=== PATIENT | female | born 1960 | race Caucasian/White ===

== ENCOUNTER 2016-10-31 17:10 | Emergency (ER) | payer OTHER ==
[~2016-10-31] VITALS: Ht 162.6 cm; Wt 80.1 kg
[~2016-10-31 17:10] MED LIST: ALPR0.5T3 PO; CHOL50006 PO; DOXE10 PO; ESTRATEST PO; HYDR-3129 PO; LEVO.1 PO; METH0.4I3; MS C PO; NORC10TA2 PO; PRED10 PO; PROT40TA PO; RITU500I IV; RIVA10 PO; SENN8.6T PO; SOMA350T PO; Z.0.COMMODE-3:1; Z.0.WALKERFRONT
[2016-10-31] MEDS ORDERED: HYDROmorphone HCL PF 1 MG/ML VIAL IV PUSH ONE (17:15)
[2016-10-31 17:16] VITALS: BP 138/67; PULSE 118; RESP 20; TEMP 98.3; O2SAT 97
--- NOTE | 2016-10-31 17:36 | PD ---
HPI Chief Complaint: Hip Injury Time Seen by Provider: 17:13 Travel History International Travel<30 days: No Contact w/Intl Traveler<30days: No Traveled to known affect area: No History of Present Illness HPI This is a 56-year-old female who has a history of spina bifida extending down to her hips with bilateral hip replacements and multiple recurrent dislocations who presents to the emergency department having just been sitting in his stool when she felt her right hip dislocate. She has severe pain in the right hip, constant, with no associated numbness or weakness. Patient follows with Dr. Polanco. She also has a history of dermatomyositis and is on multiple immunosuppressive medications for that including prednisone. PFSH Past Medical History Arthritis: Yes Asthma: Yes Autoimmune Disease: Yes Anxiety: Yes Heart Rhythm Problems: No Cancer: No Cardiovascular Problems: No High Cholesterol: No Chest Pain: No Congestive Heart Failure: No COPD: No Cerebrovascular Accident: No Diabetes: No Endocrine: Yes Genitourinary: No Hepatitis: No Hiatal Hernia: No Immune Disorder: Yes (DERMATOMYOCYTIS) Musculoskeletal: Yes (DERMATOMYOSITIS/WEAKNESS) Neurologic: Yes (SPINAL BIFIDA/LOW BACK PAIN) Psychiatric: Yes (ANXIETY/PANIC ATTACKS) Reproductive: No Respiratory: Yes (CPAP/SLEEP APEA) Migraines: No Seizures: No Sleep Apnea: No Thyroid Disease: Yes (HYPO) ?: Not Past Surgical History Abdominal Surgery: Yes (GASTRIC SLEEVE) AICD: No Cardiac Surgery: No Endocrine Surgery: No Gynecologic Surgery: Yes (HYSTERECTOMY NIRAV SALPINGO-OOPHORECTOMY) Hysterectomy: Yes Joint Replacement: Yes (NIRAV TOTAL HIP) Oral Surgery: Yes (NIRAV TMJ SX X 2) Pacemaker: No Thoracic Surgery: No Social History Tobacco Use: No Substance Use: No Allergies-Medications (Allergen,Severity, Reaction): Coded Allergies: No Known Allergies (Unverified , 10/31/16) Reported Meds & Prescriptions Reported Meds & Active Scripts Active Reported Synthroid (Levothyroxine Sodium) 88 Mcg Tab 88 Mcg PO DAILY Senna-S 8.6-50 mg (Sennosides-Docusate Sodium) 1 Tab Tab 1-3 Tab PO HS Rituxan Inj (Rituximab) 500 Mg/50 Ml Inj 1,000 Mg IV EVERY 8 WEEKS Prednisone 1 Mg Tab 8 Mg PO DAILY Take three tablets (3mg) with 5mg tab for a total dose of 8mg Prednisone 5 Mg Tab 8 Mg PO DAILY Take 1 tablet (5mg) with three 1mg tablets for a total dose of 8mg Protonix (Pantoprazole Sodium) 40 Mg Tab 40 Mg PO DAILY Ms Contin (Morphine Sulfate) 100 Mg Tab 100 Mg PO Q8H Otrexup Inj (Methotrexate Inj) 25 Mg/0.4 Ml Inj 25 Mg IM WEEKLY [place] (Hydrocodone-Acetaminophen) 10-325 Mg Tab 1 Tab PO Q4H PRN [Estratest 1.25MG] 1.25 Mg PO DAILY Doxepin Liq (Doxepin HCl) 10 Mg/Ml Conc 0.6 Ml PO HS Soma (Carisoprodol) 350 Mg Tab 350 Mg PO QID PRN Vitamin D3 (Cholecalciferol) 5,000 Unit Tab 5,000 Units PO DAILY Alprazolam 0.5 Mg Tab 0.5 Mg PO Q6H PRN Review of Systems Except as stated in HPI: all other systems reviewed are Neg Physical Exam Narrative GENERAL:Well appearing, no acute distress SKIN: Malar rash. HEAD: Atraumatic. Normocephalic. EYES: Pupils equal and round. No injection or drainage. ENT: Moist mucous membranes NECK: Trachea midline. CARDIOVASCULAR: Regular rate and rhythm. No murmur appreciated. 2+ bilateral DP pulses. RESPIRATORY: Clear to auscultation. Breath sounds equal bilaterally. GASTROINTESTINAL: Abdomen soft, non-tender, nondistended. MUSCULOSKELETAL: Shortening of the right lower extremity. Severe pain of the right hip with small movements. NEUROLOGICAL: Awake and alert. No obvious cranial nerve deficits. PSYCHIATRIC: Appropriate mood and affect; insight and judgment normal. Data Data Last Documented VS Vital Signs Date Time Temp Pulse Resp B/P Pulse Ox O2 Delivery O2 Flow Rate FiO2 10/31/16 17:31 Room Air 10/31/16 17:16 98.3 118 20 138/67 97 Orders Hip, Uni(Ap&Lat) W Ap Pelvis (10/31/16 ) Hydromorphone Pf Inj (Dilaudid Pf Inj) (10/31/16 17:15) Propofol 1000 Mg/100 Ml Inj (Diprivan 10 (10/31/16 18:15) Hip, Ap Only Wo Ap Pelvis (10/31/16 ) Propofol 1000 Mg/100 Ml Inj (Diprivan 10 (10/31/16 19:15) MDM Medical Decision Making Medical Screen Exam Complete: Yes Emergency Medical Condition: Yes Interpretation(s) Afebrile, tachycardic, normotensive Last 24 hours Impressions Hip and Pelvis X-Ray 10/31/16 0000 Signed Impressions: Service Date/Time: Monday, October 31, 2016 17:25 - CONCLUSION: 1. Dislocated right hip prosthesis. Femoral head is migrated superiorly. Martin Fitzpatrick MD Differential Diagnosis Hip dislocation, fractured hardware, hip sprain Narrative Course This is a 56-year-old female who presents to the emergency department having sustained a dislocation of her right hip prosthesis. She was placed on a monitor. X-rays were obtained and a conscious sedation was performed in her hip was reduced. Patient tolerated the procedure well. She is placed in a knee immobilizer and will be discharged home to follow up with Dr. Polanco. Procedures Procedure Narrative After the risks and benefits were discussed the following procedure was performed: MODERATE SEDATION: The patient was placed on a mold filler and pulse oximetry. An ambu bag and suction was immediately available at bedside. The patient was monitored by the nurse. Oxygen saturation, heart rate and blood pressure were monitored. Procedural sedation was acheived using 120mg of propofol . The patient was observed until awake and alert. Procedural Sedation time in attendance was 20 minutes. The right hip was reduced using traction countertraction. Right lower extremity was neurovascularly intact following procedure. Patient tolerated the procedure well. Diagnosis Primary Impression: Hip dislocation, right Qualified Code: S73.004A - Hip dislocation, right, initial encounter Patient Instructions: General Instructions Additional Instructions: If you develop weakness, numbness, severe pain or recurrent dislocation of your right hip return to the emergency department. Follow-up with Dr. Polanco as soon as possible. Med/Other Pt SpecificInfo: No Change to Meds Disposition: 01 DISCHARGE HOME Condition: Stable Kayla Loving MD Oct 31, 2016 17:36
[2016-10-31] MEDS ORDERED: PROPOFOL 1000 MG/100 ML BTL IV ONE ×2 (18:15→19:15)
[2016-10-31 18:30] VITALS: O2SAT 98
[2016-10-31] MEDS ORDERED: PROT40TA PO (18:35)
[2016-10-31] MEDS ORDERED: ESTRATEST PO (18:35)
[2016-10-31] MEDS ORDERED: PRED5TAB PO (18:35)
[2016-10-31] MEDS ORDERED: CHOL50008 PO (18:35)
[2016-10-31] MEDS ORDERED: ALPR0.5T3 PO (18:35)
[2016-10-31] MEDS ORDERED: SOMA350T PO (18:35)
[2016-10-31] MEDS ORDERED: SYNT88TA PO (18:35)
[2016-10-31] MEDS ORDERED: MS C100T PO (18:35)
[2016-10-31] MEDS ORDERED: DOXE10CO2 PO (18:35)
[2016-10-31] MEDS ORDERED: HYDR-3366 PO (18:35)
[2016-10-31] MEDS ORDERED: SENN8.6T19 PO (18:35)
[2016-10-31] MEDS ORDERED: METH0.4I3 IM (18:35)
[2016-10-31] MEDS ORDERED: RITU500I IV (18:35)
[2016-10-31] MEDS ORDERED: PRED1 PO (18:35)
--- NOTE | 2016-10-31 18:51 | RADRPT ---
EXAM DATE/TIME: 10/31/2016 17:25 [facility] COMPARISON: No previous studies available for comparison. INDICATIONS : Right Hip pain and possible dislocation while sitting down. MEDICAL HISTORY : Spina Bifida. Dermatomyositis. SURGICAL HISTORY : Bilateral Hip Replacement. ENCOUNTER: Initial ACUITY: 1 day PAIN SCORE: 10/10 LOCATION: Right Hip. FINDINGS: Examination of the right hip was performed with AP Pelvis. There is dislocation of the right femoral head prosthesis from the prosthetic acetabulum. There is also previous left hip replacement. No acute fractures seen. CONCLUSION: 1. Dislocated right hip prosthesis. Femoral head is migrated superiorly. Martin Fitzpatrick MD on October 31, 2016 at 18:48 Board Certified Radiologist. This report was verified electronically.
[2016-10-31 19:27] VITALS: BP 138/64; PULSE 78; RESP 15; O2SAT 100
[2016-10-31] MEDS ORDERED: ACETAMINOPHEN/HYDROcodone 325 MG/10 MG TAB PO ONE (19:45)
--- NOTE | 2016-10-31 20:46 | RADRPT ---
EXAM DATE/TIME: 10/31/2016 19:11 [facility] COMPARISON: No previous studies available for comparison. INDICATIONS : Right Hip Post Reduction. MEDICAL HISTORY : Spina Bifida. Dermatomyositis. SURGICAL HISTORY : Bilateral Hip Replacement. ENCOUNTER: Subsequent ACUITY: 1 day PAIN SCORE: 7/10 LOCATION: Right Hip. FINDINGS: Postoperative changes of right total hip replacement noted. No fracture. Reduction of previous disloc ation. CONCLUSION: Postoperative right hip replacement. Previous dislocation has been reduced. Martin Fitzpatrick MD on October 31, 2016 at 20:43 Board Certified Radiologist. This report was verified electronically.
== END 2016-10-31 19:50 | disposition home or self-care (01) ==
LOC: NEPE 17:10
DX: T84.020A Dislocation of internal right hip prosthesis, initial encounter (principal); M24.451 Recurrent dislocation, right hip; Y79.2 Prosthetic and other implants, materials and accessory orthopedic devices associated with adverse incidents
CPT/HCPCS: 27265; 73501; 73502; 96374; 99152; 99283; J1170; L1830

== ENCOUNTER 2016-11-20 14:09 | Inpatient (IN) | payer OTHER ==
[~2016-11-20] VITALS: Ht 162.6 cm; Wt 91.2 kg
[~2016-11-20 14:09] MED LIST changes: -CHOL50006 PO; +CHOL50008 PO; -DOXE10 PO; +DOXE10CO2 PO; -ESTRATEST PO; -HYDR-3129 PO; +HYDR-3366 PO; -LEVO.1 PO; -METH0.4I3; +METH0.4I3 IM; -MS C PO; +MS C100T PO; -NORC10TA2 PO; +PRED1 PO; -PRED10 PO; +PRED5TAB PO; -RIVA10 PO; -SENN8.6T PO; +SENN8.6T19 PO; +SYNT88TA PO; -Z.0.COMMODE-3:1; -Z.0.WALKERFRONT
[2016-11-22] MEDS ORDERED: COVATAB PO (14:58)
[2016-11-23] MEDS ORDERED: DULO1CAP3 PO (09:10)
--- NOTE | 2016-12-08 05:54 | MH ---
cc: SAWYER ARTEAGA M.D. DATE OF ADMISSION: 12/08/2016 ADMISSION DIAGNOSIS Malfunctioning right total hip replacement arthroplasty. HISTORY This is a 56-year-old female who came to previous right hip [place] resurfacing arthroplasty by another surgeon about 8 to 10 years ago. 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 The patient came to revision hip surgery by the undersigned approximately a year ago. The patient at the time of surgery was found to have such significant metallosis that she had loss of muscle attachment including part of the abductors and also her hip flexors. The patient has had troubles with dislocating of her right hip despite well-positioned components. She presents now for revision surgery. PAST MEDICAL HISTORY, SOCIAL HISTORY, FAMILY HISTORY, REVIEW OF SYSTEMS See attached notes. PHYSICAL EXAMINATION GENERAL: A 56-year-old female in moderate distress with the right hip. HEENT: Normocephalic, atraumatic. Pupils equal, round, reactive to light and accommodation. Extraocular motions intact. NECK: Supple. CHEST: Clear. HEART: Regular rate and rhythm. ABDOMEN: Soft, nontender with normoactive bowel sounds. MUSCULOSKELETAL EXAMINATION: Right minimal hip pain with range of motion. Well-healed incision. Neurologic and vascular examination within normal limits. IMPRESSION 1. Malfunctioning right total hip replacement arthroplasty. 2. Dislocating right total hip replacement arthroplasty. PLAN Revision right hip replacement surgery including a constrained liner and femoral head, possible trochanteric osteotomy and femoral revision. CONSENT There are risks with surgery including infection, bleeding, loss of motion, continued pain, need for further surgery, neurologic and vascular injury. The patient understands these issues and wishes to press on with surgery as outlined above. MD MESSI Garcia/PERRY /9:38 PM /4:45 AM
[2016-12-08] MEDS ORDERED: METOPROLOL TARTRATE 25 MG TAB PO PRN (09:45)
[2016-12-08] MEDS ORDERED: VANCOMYCIN 1000 MG/NS 250 ML (for <70 kg) IV SCH ×2 (09:45)
[2016-12-08] MEDS ORDERED: ceFAZolin 2 GM PREMIX 50 ML IV SCH (09:45)
[2016-12-08] MEDS ORDERED: INSULIN HUMAN REGULAR 1,000 UNITS/10 ML VIAL SQ PRN (09:45)
[2016-12-08] MEDS ORDERED: MORP1TAB26 PO (09:59)
[2016-12-08] MEDS ORDERED: FOLI400T PO (09:59)
[2016-12-08 10:00] VITALS: BP 163/93; PULSE 94; RESP 18; TEMP 98.1; O2SAT 98
[2016-12-08] MEDS ORDERED: SODIUM CHLORID 0.9% 500 ML IV SCH (10:00)
[2016-12-08] MEDS ORDERED: LACTATED RINGER'S 1000 ML IV SCH (10:00)
[2016-12-08] MEDS ORDERED: fentaNYL CITRATE 250 MCG/5 ML AMP ONE (10:50)
[2016-12-08] MEDS ORDERED: FAMOTIDINE 20 MG/2 ML VIAL ONE (11:14)
[2016-12-08] MEDS ORDERED: ACETAMINOPHEN 1000 MG/100 ML VIAL IV ONE (11:14)
[2016-12-08] MEDS ORDERED: MIDAZOLAM HCL 2 MG/2 ML VIAL ONE (11:14)
[2016-12-08] MEDS ORDERED: DEXAMETHASONE SOD PHOS 4 MG/ML VIAL ONE (11:14)
[2016-12-08] MEDS ORDERED: GENTAMICIN SULFATE 80 MG/2 ML VIAL ONE ×2 (11:15→11:28)
[2016-12-08] MEDS ORDERED: HEPARIN SODIUM - SQ 10,000 UNITS/ML VIAL ONE (11:16)
[2016-12-08] MEDS ORDERED: HYDROmorphone HCL PF 2 MG/ML VIAL ONE (11:22)
[2016-12-08] MEDS ORDERED: KETAMINE HCL 500 MG/5 ML VIAL ONE (11:22)
[2016-12-08] MEDS ORDERED: DICLOFENAC SODIUM 37.5 MG/ML VIAL IV PUSH ONE (11:23)
[2016-12-08] MEDS ORDERED: GELFOAM SIZE 100 ONE (11:36)
[2016-12-08] MEDS ORDERED: THROMBIN (TOPICAL) 5,000 UNIT VIAL ONE (11:37)
[2016-12-08] MEDS ORDERED: ONDANSETRON HCL 4 MG/2 ML VIAL IV PUSH ONE (12:00)
[2016-12-08] MEDS ORDERED: NEOSTIGMINE 3 MG/3 ML SYR IV ONE (12:00)
[2016-12-08] MEDS ORDERED: PROPOFOL 200 MG/20 ML AMP IV ONE (12:00)
[2016-12-08] MEDS ORDERED: LACTATED RINGER'S 1000 ML INJ 1,000 ML IV ONE (12:00)
[2016-12-08] MEDS: SODIUM CHLORIDE 0.9% IV SCH (12:11)
[2016-12-08] MEDS: TRANEXAMIC ACID IV SCH (12:11)
[2016-12-08] MEDS: EXPAREL PERI-ARTICULAR INJECTION (TOTAL VOL. 60 ML) P-ARTICULR SCH ×2 (13:00)
[2016-12-08] MEDS ORDERED: Post-op Orders (for Pharmacy) MISC XX ONE (14:15)
[2016-12-08] MEDS ORDERED: MORPHINE SULFATE 8 MG/ML INJ IM PRN (14:15)
[2016-12-08] MEDS ORDERED: MISCELLANEOUS NURSING INFORMATION XX PRN (14:15)
[2016-12-08] MEDS ORDERED: ALUMINUM/MAGNESIUM/SIMETH 30 ML CUP PO PRN (14:15)
[2016-12-08] MEDS ORDERED: MISCELLANEOUS PHARMACY INFORMATION XX ONE (14:15)
[2016-12-08] MEDS ORDERED: ONDANSETRON HCL 4 MG/2 ML VIAL IVP PRN (14:15)
[2016-12-08] MEDS ORDERED: TEMAZEPAM 15 MG CAP PO PRN (14:15)
[2016-12-08] MEDS ORDERED: CARISOPRODOL 350 MG TAB PO PRN (14:15)
[2016-12-08] MEDS ORDERED: ALPRAZolam 0.5 MG TAB PO PRN (14:15)
[2016-12-08] MEDS ORDERED: oxyCODONE/ACETAMINOPHEN 5 MG/325 MG TAB PO PRN (14:15)
[2016-12-08] MEDS ORDERED: SODIUM CHLORIDE 0.9% FLUSH 5 ML FLUSH IVF PRN (14:15)
--- NOTE | 2016-12-08 14:21 | PD.OP ---
cc: Ronni Hoffmann MD Operative Report Date of Surgery: Dec 08, 2016 Preoperative Diagnosis: Malfunctioning right total hip replacement arthroplasty. 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 Surgeon: Ronni Hoffmann Egg Buyer(s): JOHAN Julien Operation and Findings: EBL: 150 cc INDICATION: Patient is a 56-year-old female who had a previous [place] hip resurfacing of the right hip. She had significant myelosis with damage to surrounding soft tissues. The patient had revision of her right hip replacement with a ceramic on plastic liner. She has suffered from recent chronic dislocations. She presents now for surgical treatment with conversion to a constrained liner. NOTE: Caridad Julien PA-C was present for the entire surgical procedure as my sampler first. In my medical opinion her skill and care was necessary for the proper management of this patient. COMPONENTS: COMPANY: [employer] CUP: [place], 54 mm, sector STEM: Size 2, high offset, [place], uncemented HEAD: 32, +5 12/14 taper LINER: 54 x 32, +4 offset, constrained PROCEDURE: This patient was brought to the operating room and anesthetized in the supine position and positioned on the routine table in the clean air suite. The patient was then rolled to a right side up lateral position and held with a Biomet hip positioner. The hip and leg was scrubbed with alcohol followed by Hibiclens followed by chloro prep and draped sterilely. A timeout was done and antibiotics were given within a routine time window. A 6 inch incision was made starting along the posterior one third of the greater trochanter, excising the previous incision. The iliotibial band was opened in line with the incision. The Charnley retractors were positioned. The posterior capsule and external rotators were taken down together in a sleeve. The sciatic nerve was palpated to be free of any obstruction or compression and posterior to the hip joint without any evidence of traction from the retractor. There was significant loss of normal musculature. The psoas muscle had been previously noted to be completely avulsed. A portion of the abductor mechanism as well. The posterior capsule and external rotators were completely unattached. There was a 200 cc bloody effusion. Soft tissue dissection allowed good visualization. The hip was dislocated posteriorly. The head was removed from the trunnion. The femoral stem was inspected. The stem was in approximately 20-25 of anteversion and was stable. The stem was placed anterior to the cup and acetabulum. Retractors allowed good visualization. Using a curved osteotome, the plastic liner was removed without incident. This was inspected carefully and the edges very carefully cleaned up allowing reimplantation of a new liner. A constrained 54 x 32 mm liner was impacted. This was quite stable and inspected multiple times. We used a 32, +5 ceramic head. This was impacted according to shipbuilding draftsperson's recommendation. The hip was relocated. A ring was positioned and tamped around this region using this as a constrained liner. We could flex the hip to 90 and internal rotates 70-75 before any impingement. With external rotation and full extension there was no impingement. The posterior capsule was freed carefully from the surrounding tissue and multiple drill holes placed along the posterior aspect of the greater trochanter. Using multiple #2 Tycron sutures, this was repaired including up and along the posterior margin of the gluteus medius. The wound was irrigated multiple times with antibiotic irrigation. There was no bleeding at the end of the case. The iliotibial band with interrupted #1 Vicryl sutures. Subcutaneous tissue was approximated with 2-0 Vicryl suture and skin with running intradermal 3-0 Vicryl followed by Steri-Strips and benzoin. A sterile dressing was applied.. The sponge count needle counts and instrument counts were all correct. The patient was awakened and taken to the recovery room in satisfactory condition FINDINGS: There was evidence of a satisfactory positioning of the previous components. The cup appeared to be approximately 45 of abduction. This was flexed forward by approximately 25-30. Stem position was approximately 25 of anteversion. The final solution. Be very satisfactory. 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 Ronni Hoffmann MD Dec 08, 2016 14:21
[2016-12-08] MEDS ORDERED: OXYC1TAB63 PO (14:23)
[2016-12-08] MEDS ORDERED: XARE10TA PO (14:23)
[2016-12-08] MEDS ORDERED: BACITRACIN TOP OINT 15 GM TUBE ONE (14:44)
[2016-12-08] MEDS ORDERED: *HYDROmorphone PF 1 MG VIAL PERIprocedural Use ONLY ONE ×2 (15:23→15:47)
[2016-12-08] MEDS ORDERED: HYDROmorphone HCL PF 1 MG/ML VIAL IV ONE ×2 (15:28→15:47)
[2016-12-08] MEDS ORDERED: DO NOT ADM ANY ANTICOAGULANT DRUGS XX PRN (15:30)
--- NOTE | 2016-12-08 15:53 | RADRPT ---
EXAM DATE/TIME: 12/08/2016 14:25 [facility] COMPARISON: HIP RIGHT AP ONLY WO AP PELVIS, November 22, 2016, 15:08. INDICATIONS : Right hip replacement. MEDICAL HISTORY : Asthma. SURGICAL HISTORY : total hip replacement. ENCOUNTER: Initial ACUITY: 1 day PAIN SCORE: 9/10 LOCATION: Right hip. FINDINGS: 2 views of the hip reveal a total hip prosthesis in good position. No fracture or dislocation is obse rved. A small amount of air is seen within the joint. Soft tissue swelling is noted. CONCLUSION: Total hip prosthesis in good position. Kobe Blancas Jr., MD on December 08, 2016 at 15:50 Board Certified Radiologist. This report was verified electronically.
[2016-12-08] MEDS ORDERED: MORPHINE SULFATE 15 MG CONTROLLED RELEASE TAB PO SCH (16:00)
[2016-12-08] MEDS: LACTATED RINGER'S 1000 ML INJ 1,000 ML IV SCH (16:00)
[2016-12-08] MEDS ORDERED: LORazepam 2 MG/ML VIAL ONE (16:30)
[2016-12-08] MEDS ORDERED: predniSONE 10 MG TAB PO ONE (17:00)
[2016-12-08] MEDS: MORPHINE SULFATE 60 MG CONTROLLED RELEASE TAB PO SCH (17:15)
[2016-12-08] MEDS: MORPHINE SULFATE 15 MG CONTROLLED RELEASE TAB PO SCH (17:20)
[2016-12-08] MEDS ORDERED: LORazepam 2 MG/ML VIAL IV PUSH ONE (18:30)
[2016-12-08] MEDS ORDERED: NALOXONE HCL 0.4 MG/ML AMP IV PRN (19:00)
[2016-12-08] MEDS: MORPHINE SULFATE 30 MG/30 ML PCA IV SCH (19:15)
[2016-12-08] MEDS ORDERED: MORPHINE SULFATE 30 MG/30 ML PCA ONE (19:15)
[2016-12-08 20:09] VITALS: BP 123/65; PULSE 95; RESP 17; TEMP 97.3; O2SAT 96
[2016-12-08] MEDS: SODIUM CHLORIDE 0.9% FLUSH 5 ML FLUSH IVF SCH (21:00)
[2016-12-08] MEDS ORDERED: SENNOSIDES 8.6 MG TAB PO SCH (21:00)
[2016-12-08] MEDS: MAGNESIUM HYDROXIDE SUSP 30 ML CUP PO SCH ×2 (21:00→22:11)
[2016-12-08] MEDS ORDERED: DOXEPIN PO SCH (21:00)
[2016-12-08] MEDS: ESTROGEN/METHYLTESTOSTERONE 1.25 MG/2.5 MG TAB PO SCH (21:00)
[2016-12-08 21:45] VITALS: O2SAT 96
[2016-12-08] MEDS: PCA - TOTAL MG MORPHINE DELIVERED PER SHIFT SCH (22:00)
[2016-12-08] MEDS: DULoxetine HCl DR 60 MG CAP PO SCH (22:11)
[2016-12-08] MEDS: DOCUSATE SODIUM 50 MG/SENNA 8.6 MG TAB PO SCH (22:11)
[2016-12-08] MEDS: oxyCODONE/ACETAMINOPHEN 5 MG/325 MG TAB PO PRN (22:12)
[2016-12-08 23:30] VITALS: BP 142/70; PULSE 93; RESP 17; TEMP 96.9; O2SAT 96
[2016-12-09] VITALS (7 sets, daily range): BP systolic 112–148; BP diastolic 51–67; PULSE 68–105; RESP 16; TEMP 95.9–97.2; O2SAT 93–98
[2016-12-09] MEDS: MORPHINE SULFATE 15 MG CONTROLLED RELEASE TAB PO SCH ×3 (00:43→17:26)
[2016-12-09] MEDS: MORPHINE SULFATE 60 MG CONTROLLED RELEASE TAB PO SCH ×3 (00:44→17:25)
[2016-12-09] MEDS: MORPHINE SULFATE 30 MG/30 ML PCA IV SCH ×2 (02:03→08:41)
[2016-12-09] MEDS: LEVOTHYROXINE SODIUM 88 MCG TAB PO SCH (05:41)
[2016-12-09] MEDS: oxyCODONE/ACETAMINOPHEN 5 MG/325 MG TAB PO PRN ×3 (05:41→21:35)
[2016-12-09] MEDS: LACTATED RINGER'S 1000 ML INJ 1,000 ML IV SCH ×2 (05:42→16:00)
[2016-12-09] MEDS: PCA - TOTAL MG MORPHINE DELIVERED PER SHIFT SCH ×2 (06:00→14:00)
[2016-12-09] MEDS: POVIDONE IODINE 7.5% SCRUB 118 ML BOTTLE TOP SCH (07:26)
[2016-12-09] MEDS: SODIUM CHLORIDE 0.9% IV SCH (07:27)
[2016-12-09] MEDS: TRANEXAMIC ACID IV SCH (07:27)
[2016-12-09] MEDS: EXPAREL PERI-ARTICULAR INJECTION (TOTAL VOL. 60 ML) P-ARTICULR SCH ×2 (07:27)
[2016-12-09] MEDS ORDERED: predniSONE 20 MG TAB PO ONE (08:00)
[2016-12-09] MEDS: MAGNESIUM HYDROXIDE SUSP 30 ML CUP PO SCH ×2 (08:36→21:30)
[2016-12-09] MEDS: PANTOPRAZOLE SOD 40 MG DELAYED RELEASE TAB PO SCH (08:36)
[2016-12-09] MEDS: SODIUM CHLORIDE 0.9% FLUSH 5 ML FLUSH IVF SCH ×2 (08:38→21:31)
[2016-12-09 09:26] LABS: HEMATOCRIT 25.7 % (35.0-46.0); REVIEW FLAG FINAL
--- NOTE | 2016-12-09 13:25 | HHI.FF ---
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 WBAT RLE. Posterior hip precautions. Nursing RN Days per Week: 3 x Week(s): 1 Dressing Changes: Do not change dressing Additional Instructions Vitals assessment. Dressing assessment - do not change unless saturated. I have seen patient Verónica Brandt on 12/09/16. My clinical findings support the need for the requested home health care services because: Limited ability to care for self High risk of falls I certify that my clinical findings support that this patient is homebound because: Post-op weakness Unsteady gait/balance Irma Robert Dec 09, 2016 13:25
--- NOTE | 2016-12-09 13:33 | PD.ORT.PN ---
Subjective Subjective Remarks Moderate right hip pain but states she is 'surprised by how well controlled it is'. No new radiating leg pain. Some concerns over yeast infection in abdominal crease. No other concerns or complaints. No CP or SOB. Objective Vitals Vital Signs Date Time Temp Pulse Resp B/P Pulse Ox O2 Delivery O2 Flow Rate FiO2 12/09/16 12:47 97.1 98 16 121/67 93 12/09/16 09:37 18 12/09/16 09:37 18 12/09/16 08:41 18 12/09/16 08:00 95.9 84 16 136/65 98 12/09/16 07:27 98 21 12/09/16 06:00 18 12/09/16 04:35 96.7 68 16 148/60 98 12/09/16 02:03 18 12/08/16 23:30 96.9 93 17 142/70 96 12/08/16 22:00 18 12/08/16 21:45 96 21 12/08/16 20:09 97.3 95 17 123/65 96 12/08/16 19:30 98.4 93 14 120/72 97 Nasal Cannula 3 12/08/16 19:15 14 12/08/16 19:00 118 14 109/77 96 Nasal Cannula 3 12/08/16 18:00 109 14 142/66 96 Nasal Cannula 3 12/08/16 17:00 101 14 123/73 95 Nasal Cannula 3 12/08/16 16:30 91 12 127/69 95 Nasal Cannula 3 12/08/16 16:00 97.9 71 12 119/72 99 Nasal Cannula 3 12/08/16 15:45 72 14 129/66 96 Nasal Cannula 3 12/08/16 15:30 68 14 110/66 96 Nasal Cannula 3 12/08/16 15:15 62 12 131/76 94 Nasal Cannula 3 12/08/16 15:00 75 15 149/74 97 Nasal Cannula 3 12/08/16 14:50 98.1 62 14 136/69 98 Nasal Cannula 3 I/O 12/08/16 12/08/16 12/08/16 12/09/16 12/09/16 12/09/16 07:00 15:00 23:00 07:00 15:00 23:00 Intake Total 1000 ml 1200 ml 899 ml Output Total 1350 ml 900 ml 750 ml Balance -350 ml 300 ml 149 ml Intake Oral 0 ml 700 ml 480 ml IV Total 419 ml Other 1000 ml 500 ml Output Urine Total 1200 ml 900 ml 750 ml Estimated Blood Loss 150 ml 0 ml # Bowel Movements 0 0 Result Diagram: 12/09/16 0858 Objective Remarks Sitting up in bed, NAD VSS RLE Dressing intact, mild SS drainage, mild swelling thigh and calf supple, neg homans +motor at, +sens, +nvi Assessment & Plan Ortho Post Op Day #: 1 Problem List: Assessment and Plan pod#1 s/p Rev R OMEGA w constrained liner 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 Posterior hip precautions. Dry dressing changes daily beginning tomorrow. Xarelto 10mg qd. Nystatin cream for abd crease. D/C planning, [facility] wednesday. F2F written. Pt already has all DME. Irma Robert Dec 09, 2016 13:33
[2016-12-09] MEDS: RIVAROXABAN 10 MG TAB PO SCH (13:49)
[2016-12-09] MEDS: NYSTATIN/TRIAMCINOLONE OINT 15 GM TUBE TOPICAL SCH (21:30)
[2016-12-09] MEDS: DULoxetine HCl DR 60 MG CAP PO SCH (21:30)
[2016-12-09] MEDS: ESTROGEN/METHYLTESTOSTERONE 1.25 MG/2.5 MG TAB PO SCH (21:30)
[2016-12-09] MEDS: DOCUSATE SODIUM 50 MG/SENNA 8.6 MG TAB PO SCH (21:30)
[2016-12-10 00:10] VITALS: BP 145/69; PULSE 71; RESP 16; TEMP 96.3; O2SAT 100
[2016-12-10] MEDS: LACTATED RINGER'S 1000 ML INJ 1,000 ML IV SCH ×2 (00:57→07:21)
[2016-12-10] MEDS: MORPHINE SULFATE 15 MG CONTROLLED RELEASE TAB PO SCH ×3 (01:24→17:59)
[2016-12-10] MEDS: MORPHINE SULFATE 60 MG CONTROLLED RELEASE TAB PO SCH ×3 (01:24→17:59)
[2016-12-10] MEDS: oxyCODONE/ACETAMINOPHEN 5 MG/325 MG TAB PO PRN ×3 (06:00→18:12)
[2016-12-10] MEDS: LEVOTHYROXINE SODIUM 88 MCG TAB PO SCH (06:01)
[2016-12-10] MEDS: POVIDONE IODINE 7.5% SCRUB 118 ML BOTTLE TOP SCH (07:20)
[2016-12-10 08:00] VITALS: BP 108/63; PULSE 113; RESP 19; TEMP 98.2; O2SAT 96
[2016-12-10] MEDS ORDERED: predniSONE 10 MG TAB PO SCH (08:00)
[2016-12-10] MEDS: SODIUM CHLORIDE 0.9% FLUSH 5 ML FLUSH IVF SCH (09:00)
[2016-12-10] MEDS: NYSTATIN/TRIAMCINOLONE OINT 15 GM TUBE TOPICAL SCH (09:00)
[2016-12-10] MEDS: MAGNESIUM HYDROXIDE SUSP 30 ML CUP PO SCH (09:00)
[2016-12-10] MEDS: PANTOPRAZOLE SOD 40 MG DELAYED RELEASE TAB PO SCH (09:07)
--- NOTE | 2016-12-10 09:39 | PD.ORT.PN ---
Subjective Subjective Remarks She continues to have moderate right hip pain but states she is almost 'back to her baseline pain'. She gets occasional cramps and spasms but they are 'few and far between'. No new radiating leg pain. Feels better when she can walk the hallway several times a day. Urinating well. No BM yet but declined last does of milk of mag. Was able to start the nystatin cream yesterday. No CP or SOB. Questions about d/c today. Objective Vitals Vital Signs Date Time Temp Pulse Resp B/P Pulse Ox O2 Delivery O2 Flow Rate FiO2 12/10/16 00:10 96.3 71 16 145/69 100 12/09/16 22:55 96.1 105 16 112/51 98 12/09/16 17:47 93 21 12/09/16 17:00 97.2 100 16 115/51 94 12/09/16 14:49 18 12/09/16 14:00 18 12/09/16 12:47 97.1 98 16 121/67 93 12/09/16 09:37 18 12/09/16 09:37 18 I/O 12/09/16 12/09/16 12/09/16 12/10/16 12/10/16 12/10/16 07:00 15:00 23:00 07:00 15:00 23:00 Intake Total 899 ml 480 ml 480 ml 480 ml Output Total 750 ml Balance 149 ml 480 ml 480 ml 480 ml Intake Oral 480 ml 240 ml 480 ml 480 ml IV Total 419 ml 240 ml Output Urine Total 750 ml # Voids 3 3 3 # Bowel Movements 0 0 0 0 Result Diagram: 12/09/16 0858 Objective Remarks Standing at bedside, RN in room, NAD VSS RLE Dressing intact, mild-mod SS drainage, mild swelling thigh and calf supple, neg homans +motor at, +sens, +nvi Assessment & Plan Ortho Post Op Day #: 2 Problem List: Assessment and Plan pod#2 s/p Rev R OMEGA w constrained liner Pain moderately controlled w PO meds. Ok to d/c home w [facility] later today after PT. PT - WBAT RLE. Posterior hip precautions. Dry dressing change today with a 'no change' dressing. Continue that dressing for 2 weeks. Xarelto 10mg qd. Nystatin cream for abd crease. F/U in 2 weeks outpatient. F2F written. Pt already has all DME. Irma Robert Dec 10, 2016 09:39
--- NOTE | 2016-12-10 09:40 | HHI.DCPOC ---
Discharge Care Plan Diagnosis: (1) Right hip pain (2) Hip dislocation, right (3) Sveta-prosthetic osteolysis Your Health Problems Are: Incision/Drains Goals to Promote Your Health * To prevent worsening of your condition and complications * To maintain your health at the optimal level Directions to Meet Your Goals Take your medications as prescribed Follow your dietary instruction Follow activity as directed Keep your appointments as scheduled Take your immunizations and boosters as scheduled If your symptoms worsen call your PCP, if no PCP go to Urgent Care Center or Emergency Room Smoking is Dangerous to Your Health. Avoid second hand smoke Call the 24-hour hour crisis hotline for domestic abuse at Irma Robert Dec 10, 2016 09:40
--- NOTE | 2016-12-10 09:44 | HHI.DS ---
Discharge Summary Admission Date Dec 08, 2016 at 09:11 Discharge Date: Dec 10, 2016 Admitting Diagnosis see below Diagnosis: (1) Right hip pain Diagnosis: Principal (2) Hip dislocation, right Diagnosis: Principal (3) Failed total joint replacement Diagnosis: Principal (4) Sveta-prosthetic osteolysis Diagnosis: Principal Procedures Revisional right total hip arthroplasty with constrained liner, posterior approach Brief History This is a 56 year old female patient with a history of previous [place] hip resurfacing. This was eventually converted to a right total hip arthroplasty. She struggled significantly with right hip dislocations. She had to change her activities and change job responsibilities. Due to her consistent pain and dislocations, surgical revision with a constrained liner was eventually recommended and she elected to move forward. CBC/BMP: 12/09/16 0858 Significant Findings Laboratory Tests Test 12/09/16 08:58 Hemoglobin 9.0 GM/DL (11.6-15.3) Hematocrit 25.7 % (35.0-46.0) PE at Discharge Standing at bedside, RN in room, NAD VSS RLE Dressing intact, mild-mod SS drainage, mild swelling thigh and calf supple, neg homans +motor at, +sens, +nvi Hospital Course Surgical treatment was performed on the day of admission without complication. She recovered well in PACU and was transferred to the orthopaedic floor. Pain was controlled with IV and oral medications. DVT prophylaxis was initiated pod# 1. She was compliant with physical therapy and all posterior OMEGA precautions. After 2 days she was found to be stable and discharged home with home health care with instruction to continue her therapy and to pursue a high fiber diet for 3-5 days. Pt Condition on Discharge: Stable Discharge Disposition: Disch w/ Home Health Serv Discharge Instructions Diet Instructions: As Tolerated, No Restrictions, High Fiber Diet Activities You Can Perform: Weight Bearing as Nithya Activities to Avoid: Strenuous Activity Additional Activity Instruc.: Posterior OMEGA precautions New Medications: Oxycodone-Acetaminophen (Oxycodone-Acetaminophen) 5-325 mg Tab 1 TAB PO Q4H PRN PAIN LESS THAN 5 ON SCALE #50 TAB Rivaroxaban (Xarelto) 10 Mg Tab 10 MG PO Q24H Prevent Blood Clot #25 TAB Continued Medications: Alprazolam (Alprazolam) 0.5 Mg Tab 0.5 MG PO Q6H PRN ANXIETY Ref 0 TAB Carisoprodol (Soma) 350 Mg Tab 350 MG PO QID PRN PAIN Ref 0 TAB Cholecalciferol (Vitamin D3) 5,000 Unit Tab 5000 UNITS PO HS Nutritional Supplement #1 Ref 0 BOTTLE Doxepin Liq (Doxepin Liq) 10 Mg/Ml Conc 0.6 ML PO HS Ref [address] (Duloxetine DR) 60 Mg Capdr 60 MG PO HS #30 Ref 0 CAP Estrogens, Esterified-Methyltestosterone (Covaryx) 1.25-2.5 Mg Tab 1 TAB PO HS Folic Acid (Folic Acid) 400 Mcg Tab 400 MCG PO HS Nutritional Supplement Ref 0 TAB NS Hydrocodone-Acetaminophen (Elmo) 10-325 Mg Tab 1 TAB PO Q4H PRN BREAKTHROUGH PAIN Ref 0 TAB Levothyroxine (Synthroid) 88 Mcg Tab 88 MCG PO DAILY Thyroid #30 Ref 0 TAB Methotrexate Inj (Otrexup Inj) 25 Mg/0.4 Ml Inj 25 MG IM WEEKLY Morphine ER (Morphine ER) 60 Mg Tab 75 MG PO Q8H Pain Management Ref 0 TAB Pantoprazole (Protonix) 40 Mg Tab 40 MG PO DAILY Reflux #30 Ref 0 TAB Prednisone (Prednisone) 5 Mg Tab 8 MG PO DAILY Take 1 tablet (5mg) with three 1mg tablets for a total dose of 8mg Ref 0 TAB Prednisone (Prednisone) 1 Mg Tab 8 MG PO DAILY Take three tablets (3mg) with 5mg tab for a total dose of 8mg Ref 0 TAB Rituximab Inj (Rituxan Inj) 500 Mg/50 Ml Inj 1000 MG IV EVERY 8 WEEKS Sennosides-Docusate Sodium (Senna-S 8.6-50 mg) 1 Tab Tab 1-3 TAB PO HS Irma Robert Dec 10, 2016 09:44
[2016-12-10 10:44] VITALS: BP 141/73; PULSE 103; RESP 19; TEMP 96.9; O2SAT 98
[2016-12-10] MEDS: RIVAROXABAN 10 MG TAB PO SCH (12:11)
[2016-12-10 16:00] VITALS: BP 131/72; PULSE 92; RESP 19; TEMP 98.6; O2SAT 96
== END 2016-12-10 18:39 | disposition home health service (06) | DRG 470 ==
LOC: HSDI 12-08 09:11 → N06A 12-08 20:09
PROVIDERS: ADMIT Orthopaedic Surgery Orthopaedic Surgery of the Spine; ATTEND Orthopaedic Surgery Orthopaedic Surgery of the Spine
PROC: 0SR903A Replacement of Right Hip Joint with Ceramic Synthetic Substitute, Uncemented, Open Approach (ICD-10-PCS; principal; 2016-12-08 11:55)
DX: T84.050A Periprosthetic osteolysis of internal prosthetic right hip joint, initial encounter (principal); T84.020A Dislocation of internal right hip prosthesis, initial encounter; Y83.8 Other surgical procedures as the cause of abnormal reaction of the patient, or of later complication, without mention of misadventure at the time of the procedure; Y92.9 Unspecified place or not applicable
CPT/HCPCS: 73502; 85014; 85018; 86850; 86900; 86901; 86920; 94150; C1776; C9290; J0131; J0690; J1100; J1130; J1170; J1580; J1644; J2060; J2250; J2270; J2405; J2710; J3010; J3370; J7050; J7120; J7512

== ENCOUNTER 2016-11-22 12:02 | Emergency (ER) | payer OTHER ==
[~2016-11-22] VITALS: Ht 162.6 cm; Wt 85.0 kg
[2016-11-22] VITALS (11 sets, daily range): BP systolic 142–171; BP diastolic 69–81; PULSE 64–92; RESP 14–18; TEMP 98.2; O2SAT 94–100
[~2016-11-22 12:02] MED LIST changes: +ESTRATEST PO
[2016-11-22] MEDS ORDERED: MORPHINE SULFATE 8 MG/ML INJ IV PUSH ONE (12:15)
[2016-11-22] MEDS ORDERED: ONDANSETRON HCL 4 MG/2 ML VIAL IVP ONE (12:15)
[2016-11-22] MEDS ORDERED: SODIUM CHLORIDE 0.9% FLUSH 5 ML FLUSH IVF PRN (12:15)
--- NOTE | 2016-11-22 12:47 | RADRPT ---
EXAM DATE/TIME: 11/22/2016 12:45 [facility] COMPARISON: No previous studies available for comparison. INDICATIONS : Right hip recurrent right hip dislocation MEDICAL HISTORY : Spina Bifida. Dermatomyositis. SURGICAL HISTORY : Bilateral hip replacements ENCOUNTER: Initial ACUITY: 1 day PAIN SCORE: 7/10 LOCATION: Right Hip FINDINGS: Patient has a right total hip arthroplasty that is dislocated posterior/superior. No fracture seen. N o evidence of hardware failure or loosening. CONCLUSION: Posterior/superior dislocation of the right hip arthroplasty. Bryce Dupont MD on November 22, 2016 at 12:45 Board Certified Radiologist. This report was verified electronically.
[2016-11-22 12:53] LABS: AUTOMATED NEUTROPHIL # 8.4 TH/MM3 (1.8-7.7); BASOPHIL % 0.1 % (0.0-2.0); EOSINOPHIL % 0.1 % (0.0-4.0); HEMATOCRIT 38.9 % (35.0-46.0); HEMO FLAGS DIFF FINAL; LYMPH % 5.5 % (9.0-44.0); LYMPHOCYTE # 0.5 TH/MM3 (1.0-4.8); MEAN CORPUSCULAR HGB CONC 33.6 % (32.0-36.0); MONO % 4.8 % (0.0-8.0); NEUT % 89.5 % (16.0-70.0); PLATELET COUNT 340 TH/MM3 (150-450); RED BLOOD COUNT 3.97 MIL/MM3 (4.00-5.30); RED CELL DISTRIBUTION WIDTH 14.4 % (11.6-17.2); WHITE BLOOD COUNT 9.3 TH/MM3 (4.0-11.0)
[2016-11-22 13:04] LABS: BICARBONATE 33.8 MEQ/L (21.0-32.0); POTASSIUM 3.7 MEQ/L (3.5-5.1)
[2016-11-22] MEDS ORDERED: PROPOFOL 500 MG/50 ML BTL IV ONE ×2 (13:15→14:30)
--- NOTE | 2016-11-22 14:26 | RADRPT ---
EXAM DATE/TIME: 11/22/2016 14:01 [facility] COMPARISON: HIP RIGHT (AP&LAT 2/3VWS) W AP PELVIS, November 22, 2016, 12:45. INDICATIONS : Post reduction. MEDICAL HISTORY : Spina bifida SURGICAL HISTORY : Bilateral hip replacements ENCOUNTER: Subsequent ACUITY: 1 day PAIN SCORE: 10/10 LOCATION: Right hip FINDINGS: Right total hip arthroplasty remains superiorly dislocated. No fracture seen. CONCLUSION: The right hip arthroplasty is still superiorly dislocated. Bryce Dupont MD on November 22, 2016 at 14:24 Board Certified Radiologist. This report was verified electronically.
[2016-11-22] MEDS ORDERED: COVATAB PO (14:58)
--- NOTE | 2016-11-22 15:16 | PD ---
HPI Chief Complaint: Hip Injury Time Seen by Provider: 12:06 Travel History International Travel<30 days: No Contact w/Intl Traveler<30days: No Traveled to known affect area: No History of Present Illness HPI Patient 56-year-old female with a history of right hip replacement presents emergency department for evaluation of hip dislocation. Patient states she was just getting out of her car when she felt to slip out of place. Patient is scheduled to have a revision of her right hip replacement in the middle of next month with Dr. Polanco. Patient lives in the [facility] that [facility] can never get her hip in place that she requested to come to [place]. Patient was here on October 31 for similar and had to have sedation and reduction. Patient denies any other pain at this time. PFSH Past Medical History Arthritis: Yes Asthma: Yes Autoimmune Disease: Yes Anxiety: Yes Heart Rhythm Problems: No Cancer: No Cardiovascular Problems: No High Cholesterol: No Chemotherapy: Yes (RITUXAN) Chest Pain: No Congestive Heart Failure: No COPD: No Cerebrovascular Accident: No Diabetes: No Endocrine: Yes Genitourinary: No Hepatitis: No Hiatal Hernia: No Immune Disorder: Yes (DERMATOMYOCYTIS) Implanted Vascular Access Dvce: Yes (Port) Musculoskeletal: Yes (DERMATOMYOSITIS/WEAKNESS) Neurologic: Yes (SPINAL BIFIDA/LOW BACK PAIN) Psychiatric: Yes (ANXIETY/PANIC ATTACKS) Reproductive: No Respiratory: Yes (CPAP/SLEEP APEA) Migraines: No Seizures: No Sleep Apnea: No Thyroid Disease: Yes (HYPO) Tetanus Vaccination: Unknown Influenza Vaccination: No Past Surgical History Abdominal Surgery: Yes (GASTRIC SLEEVE) AICD: No Cardiac Surgery: No Endocrine Surgery: No Gynecologic Surgery: Yes (HYSTERECTOMY NIRAV SALPINGO-OOPHORECTOMY) Hysterectomy: Yes Joint Replacement: Yes (NIRAV TOTAL HIP) Neurologic Surgery: No Oral Surgery: Yes (NIRAV TMJ SX X 2) Pacemaker: No Thoracic Surgery: No Other Surgery: Yes Social History Alcohol Use: No Tobacco Use: No Substance Use: No Allergies-Medications (Allergen,Severity, Reaction): Coded Allergies: No Known Allergies (Unverified , 11/22/16) Reported Meds & Prescriptions Reported Meds & Active Scripts Active Reported Covaryx (Estrogens, Esterified-Methyltestosterone) 1.25-2.5 Mg Tab 1 Tab PO DAILY Synthroid (Levothyroxine Sodium) 88 Mcg Tab 88 Mcg PO DAILY Senna-S 8.6-50 mg (Sennosides-Docusate Sodium) 1 Tab Tab 1-3 Tab PO HS Rituxan Inj (Rituximab) 500 Mg/50 Ml Inj 1,000 Mg IV EVERY 8 WEEKS Prednisone 1 Mg Tab 8 Mg PO DAILY Take three tablets (3mg) with 5mg tab for a total dose of 8mg Prednisone 5 Mg Tab 8 Mg PO DAILY Take 1 tablet (5mg) with three 1mg tablets for a total dose of 8mg Protonix (Pantoprazole Sodium) 40 Mg Tab 40 Mg PO DAILY Ms Contin (Morphine Sulfate) 100 Mg Tab 100 Mg PO Q8H Otrexup Inj (Methotrexate Inj) 25 Mg/0.4 Ml Inj 25 Mg IM WEEKLY [place] (Hydrocodone-Acetaminophen) 10-325 Mg Tab 1 Tab PO Q4H PRN Doxepin Liq (Doxepin HCl) 10 Mg/Ml Conc 0.6 Ml PO HS Soma (Carisoprodol) 350 Mg Tab 350 Mg PO QID PRN Vitamin D3 (Cholecalciferol) 5,000 Unit Tab 5,000 Units PO DAILY Alprazolam 0.5 Mg Tab 0.5 Mg PO Q6H PRN Review of Systems Except as stated in HPI: all other systems reviewed are Neg Physical Exam Narrative GENERAL: Well-developed well-nourished in minimal pain. SKIN: Warm and dry. HEAD: Atraumatic. Normocephalic. EYES: Pupils equal and round. No scleral icterus. No injection or drainage. ENT: No nasal bleeding or discharge. Mucous membranes pink and moist. Oropharynx clear, well potty 1. NECK: Trachea midline. No JVD. CARDIOVASCULAR: Regular rate and rhythm. No murmur appreciated. RESPIRATORY: No accessory muscle use. Clear to auscultation. Breath sounds equal bilaterally. GASTROINTESTINAL: Abdomen soft, non-tender, nondistended. Hepatic and splenic margins not palpable. MUSCULOSKELETAL: No obvious deformities. No clubbing. No cyanosis. No edema. The right leg is shortened and externally rotated consistent with a posterior dislocation. Pulses motor and sensory intact distally in all 4 extremities. Department soft, right knee is normal. The right hip is somewhat tender to palpation. NEUROLOGICAL: Awake and alert. No obvious cranial nerve deficits. Motor grossly within normal limits. Normal speech. PSYCHIATRIC: Appropriate mood and affect; insight and judgment normal. Data Data Last Documented VS Vital Signs Date Time Temp Pulse Resp B/P Pulse Ox O2 Delivery O2 Flow Rate FiO2 11/22/16 16:00 64 18 142/69 100 Room Air 11/22/16 15:30 2 11/22/16 12:06 98.2 Orders Basic Metabolic Panel (Bmp) (11/22/16 12:06) Complete Blood Count With Diff (11/22/16 12:06) Iv Access Insert/Monitor (11/22/16 12:06) Ecg Monitoring (11/22/16 12:06) Oximetry (11/22/16 12:06) Ondansetron Inj (Zofran Inj) (11/22/16 12:15) Sodium Chloride 0.9% Flush (Ns Flush) (11/22/16 12:15) Morphine Inj (Morphine Inj) (11/22/16 12:15) Hip, Uni(Ap&Lat) W Ap Pelvis (11/22/16 ) Propofol 500 Mg/50 Ml Inj (Diprivan 500 (11/22/16 13:15) Immobilizer Knee 20 Inch (11/22/16 ) Propofol 500 Mg/50 Ml Inj (Diprivan 500 (11/22/16 14:30) Hip, Ap Only Wo Ap Pelvis (11/22/16 ) Hip, Ap Only Wo Ap Pelvis (11/22/16 ) Labs Laboratory Tests Test 11/22/16 12:10 White Blood Count 9.3 TH/MM3 Red Blood Count 3.97 MIL/MM3 Hemoglobin 13.1 GM/DL Hematocrit 38.9 % Mean Corpuscular Volume 98.0 FL Mean Corpuscular Hemoglobin 33.0 PG Mean Corpuscular Hemoglobin 33.6 % Concent Red Cell Distribution Width 14.4 % Platelet Count 340 TH/MM3 Mean Platelet Volume 7.6 FL Neutrophils (%) (Auto) 89.5 % Lymphocytes (%) (Auto) 5.5 % Monocytes (%) (Auto) 4.8 % Eosinophils (%) (Auto) 0.1 % Basophils (%) (Auto) 0.1 % Neutrophils # (Auto) 8.4 TH/MM3 Lymphocytes # (Auto) 0.5 TH/MM3 Monocytes # (Auto) 0.4 TH/MM3 Eosinophils # (Auto) 0.0 TH/MM3 Basophils # (Auto) 0.0 TH/MM3 CBC Comment DIFF FINAL Differential Comment Sodium Level 143 MEQ/L Potassium Level 3.7 MEQ/L Chloride Level 101 MEQ/L Carbon Dioxide Level 33.8 MEQ/L Anion Gap 8 MEQ/L Blood Urea Nitrogen 12 MG/DL Creatinine 0.73 MG/DL Estimat Glomerular Filtration 82 ML/MIN Rate Random Glucose 96 MG/DL Calcium Level 9.3 MG/DL MDM Medical Decision Making Medical Screen Exam Complete: Yes Emergency Medical Condition: Yes Differential Diagnosis Repeat right hip dislocation, right hip fracture, pelvic fracture, hip laxity, opioid tolerance. Narrative Course Patient was roomed in the emergency department, x-rays confirm that she had a posterior hip dislocation on the right. Patient was initially sedated by Dr. Arce and attempted a reduction by myself , with director of orthopedics in the room. Patient had what appeared to be adequate reduction of her right hip under sedation. She did have a brief period of apnea during Dr. Arce sedation. This was quickly recognized the patient had a few moments of [id number] no desaturation and had full return of consciousness. After sedation was ended and patient was breathing on her own having suffered no untoward complication x-ray was obtained which shows the patient's hip was not an anatomical location. The patient had to be re-sedated and reduced this time she was reduced by Dash cox PA and myself sedating. With her previous apneic episode patient was given Lasix sedating medication and still had a brief episode of apnea this time lasting for less than 30 seconds. He was quickly recognized that she had [id number] for less than 30 seconds. She had no desaturation again and again had full regain of consciousness. X-rays obtained at this time and shows that the hip was now in anatomical position. She was placed in a knee immobilizer. After sedation completely worn off she demonstrated ability to a bili in the emergency department. Discussed with her need follow-up with Dr. Polanco for preop that she is scheduled tomorrow. During both procedures the patient was monitored closely with full monitoring including blood pressure and tidal capnography. Respiratory therapy and director of orthopedics and a nurse was in the room at all times. Patient did request pain medicine for her chronic hip pain to go home with. She has ran out of her MS Contin earlier and I'm disinclined to refill more pain medication at this time. Discussed that she is at significant pain she can return to the emergency department at this time she would like to go home. Last 24 hours Impressions Hip and Pelvis X-Ray 11/22/16 Signed Impressions: Service Date/Time: Tuesday, November 22, 2016 12:45 - CONCLUSION: Posterior/superior dislocation of the right hip arthroplasty. Bryce Dupont MD Hip X-Ray 11/22/16 Signed Impressions: Service Date/Time: Tuesday, November 22, 2016 15:08 - CONCLUSION: Right hip prosthesis has been relocated to its anatomic position. David Clark MD Hip X-Ray 11/22/16 Signed Impressions: Service Date/Time: Tuesday, November 22, 2016 14:01 - CONCLUSION: The right hip arthroplasty is still superiorly dislocated. Bryce Dupont MD Procedures Procedure Narrative Orthopedic reduction: After the risks benefits competitions and alternatives of orthopedic reduction and sedation including apnea hypotension need for intubation fracture need for surgery were discussed with the patient she agreed and signed formal consent for both procedures. Patient was sedated by Dr. Arce. Patient was attempted be reduced with traction countertraction with the patient flexed at 90 and internally rotated. Sudden length and was felt in her hip and the patient's length. To be equal. Patient was placed in a knee immobilizer. She did have an apneic event during the sedation and had bag- valve-mask for short period of time. On awakening patient states that her hip still felt in pain. A post reduction x-ray was obtained and showed that the reduction was unsuccessful. Conscious sedation: Patient had to be re-sedated after the first reduction was unsuccessful: She was given a total of 110 mg of propofol by me with 80 is an induction dose an additional 30 mg was given during procedure. She was successfully reduced by Da DREW using the same technique as described above. Patient again had a brief apneic episode and had to be [id number] by myself with respiratory as a cyst. She had no desaturation and returned consciousness within 30 seconds. She completed the sedation having suffered no untoward adverse reaction. Diagnosis Primary Impression: Hip dislocation, right Qualified Code: S73.004A - Hip dislocation, right, initial encounter Disposition: DISCHARGE HOME Condition: Stable Larry Ball MD Nov 22, 2016 15:16
--- NOTE | 2016-11-22 15:18 | RADRPT ---
EXAM DATE/TIME: 11/22/2016 15:08 [facility] COMPARISON: HIP RIGHT AP ONLY WO AP PELVIS, November 22, 2016, 14:01. INDICATIONS : Post reduction right hip MEDICAL HISTORY : recurrent right hip dislocation SURGICAL HISTORY : bilateral hip arthroplasty ENCOUNTER: Subsequent ACUITY: 1 day PAIN SCORE: 0/10 LOCATION: Right Hip FINDINGS: View of the right hip was obtained. No hardware loosening. Femoral neck is intact. No fracture is se en. The soft tissues are unremarkable. CONCLUSION: Right hip prosthesis has been relocated to its anatomic position. David Clark MD on November 22, 2016 at 15:15 Board Certified Radiologist. This report was verified electronically.
[2016-11-23] MEDS ORDERED: DULO1CAP3 PO (09:10)
== END 2016-11-22 18:02 | disposition home or self-care (01) ==
LOC: NEPA 12:02
DX: T84.020A Dislocation of internal right hip prosthesis, initial encounter (principal); M19.90 Unspecified osteoarthritis, unspecified site; Z96.641 Presence of right artificial hip joint
CPT/HCPCS: 27265; 73501; 73502; 80048; 85025; 96374; 96375; 99152; 99284; J2270; J2405; L1830

== ENCOUNTER → 2016-11-23 | Outpatient (CLI) | payer OTHER ==
[~2016-11-23] MED LIST changes: +CEFA2SOL IV; +COVATAB PO; +DULO1CAP3 PO; +EPIN1INJ21 IV PUSH; +EPIN1INJ21 SQ; -ESTRATEST PO; +FAMO20TA2 PO; +FOLI400T PO; +MAGN64 PO; +MORP1TAB26 PO; +OXYC1TAB63 PO; +RIFA300C2 PO; +SOLU250I IV PUSH; +VITA400C28 PO; +XARE10TA PO; +ZOFR4TAB PO
[2016-11-23 09:47] LABS: AUTOMATED NEUTROPHIL # 5.4 TH/MM3 (1.8-7.7); BASOPHIL % 0.4 % (0.0-2.0); EOSINOPHIL # 0.1 TH/MM3 (0-0.4); EOSINOPHIL % 0.8 % (0.0-4.0); HEMO FLAGS DIFF FINAL; LYMPH % 7.1 % (9.0-44.0); LYMPHOCYTE # 0.4 TH/MM3 (1.0-4.8); MEAN CELL VOLUME 98.2 FL (80.0-100.0); MEAN CORPUSCULAR HEMOGLOBIN 32.8 PG (27.0-34.0); MEAN CORPUSCULAR HGB CONC 33.4 % (32.0-36.0); MONO % 5.5 % (0.0-8.0); NEUT % 86.2 % (16.0-70.0); PLATELET COUNT 311 TH/MM3 (150-450); RED BLOOD COUNT 3.67 MIL/MM3 (4.00-5.30); RED CELL DISTRIBUTION WIDTH 14.4 % (11.6-17.2); WHITE BLOOD COUNT 6.3 TH/MM3 (4.0-11.0)
[2016-11-23 09:54] LABS: APTT (PATIENT) 26.8 SEC (24.3-30.1); INTERNATIONAL NORMALIZED RATIO 0.9 RATIO; PROTHROMBIN TIME - PATIENT 10.1 SEC (9.8-11.6)
[2016-11-23 10:13] LABS: BICARBONATE 33.3 MEQ/L (21.0-32.0); POTASSIUM 3.9 MEQ/L (3.5-5.1)
[2016-11-23 10:40] LABS: BLOOD, URINE NEG (NEG); COMMENT (UR) CATH-CULT NOT IND; CULTURE IF INDICATED CATH CULTURE NOT IND; GLUCOSE,URINE NEG (NEG); KETONE, URINE NEG (NEG); MUCUS URINE FEW /lpf (OCC); NITRITE,URINE NEG (NEG); SQUAMOUS EPITHELIAL CELL URINE 1 /hpf (0-5); URINE COLOR YELLOW (YELLW/STRAW)
--- NOTE | 2016-11-23 13:37 | EKG ---
Date Performed: 11/23/2016 Time Performed: 08:59:55 PTAGE: 56 years EKG: Sinus rhythm NORMAL ECG Compared to prior tracing no significant change PREVIOUS TRACING 12/06/2015 10.21.34 DOCTOR: Arvin Martinez Interpretating Date/Time 11/23/2016 13:36:44
== END ==
LOC: CPRE 08:18
PROVIDERS: ATTEND Orthopaedic Surgery Orthopaedic Surgery of the Spine
DX: Z01.810 Encounter for preprocedural cardiovascular examination (principal); Z01.812 Encounter for preprocedural laboratory examination; Z01.818 Encounter for other preprocedural examination; Z79.01 Long term (current) use of anticoagulants; Z96.641 Presence of right artificial hip joint; M25.551 Pain in right hip
CPT/HCPCS: 36415; 80048; 81001; 85025; 85610; 85730; 93005

== ENCOUNTER 2017-01-11 11:38 | Inpatient (IN) | payer OTHER ==
[~2017-01-11 11:38] MED LIST changes: -CEFA2SOL IV; -EPIN1INJ21 IV PUSH; -EPIN1INJ21 SQ; -FAMO20TA2 PO; -MAGN64 PO; -MS C100T PO; -RIFA300C2 PO; -SOLU250I IV PUSH; -VITA400C28 PO; -ZOFR4TAB PO
[2017-01-11 21:15] VITALS: BP 147/76; PULSE 78; RESP 21; TEMP 97.6; O2SAT 99
[2017-01-11 21:38] LABS: AUTOMATED NEUTROPHIL # 7.3 TH/MM3 (1.8-7.7); BASOPHIL % 0.4 % (0.0-2.0); EOSINOPHIL # 0.1 TH/MM3 (0-0.4); EOSINOPHIL % 1.2 % (0.0-4.0); HEMATOCRIT 33.4 % (35.0-46.0); HEMO FLAGS DIFF FINAL; LYMPH % 12.7 % (9.0-44.0); LYMPHOCYTE # 1.2 TH/MM3 (1.0-4.8); MEAN CELL VOLUME 101.6 FL (80.0-100.0); MEAN CORPUSCULAR HEMOGLOBIN 33.2 PG (27.0-34.0); MEAN CORPUSCULAR HGB CONC 32.7 % (32.0-36.0); MONO % 5.6 % (0.0-8.0); NEUT % 80.1 % (16.0-70.0); PLATELET COUNT 393 TH/MM3 (150-450); RED BLOOD COUNT 3.29 MIL/MM3 (4.00-5.30); RED CELL DISTRIBUTION WIDTH 16.1 % (11.6-17.2); WHITE BLOOD COUNT 9.1 TH/MM3 (4.0-11.0)
[2017-01-11] MEDS: DULoxetine HCl DR 60 MG CAP PO SCH (21:59)
[2017-01-11] MEDS: DOCUSATE SODIUM 50 MG/SENNA 8.6 MG TAB PO SCH (21:59)
[2017-01-11] MEDS: MORPHINE SULFATE 60 MG CONTROLLED RELEASE TAB PO SCH (21:59)
[2017-01-11] MEDS: FOLIC ACID 1 MG TAB PO SCH (21:59)
[2017-01-11] MEDS: oxyCODONE/ACETAMINOPHEN 5 MG/325 MG TAB PO PRN (21:59)
[2017-01-11 22:00] LABS: ALKALINE PHOSPHATASE 58 U/L (45-117); ALT (GPT) 14 U/L (10-53); ANION GAP 5 MEQ/L (5-15); AST (GOT) 14 U/L (15-37); BICARBONATE 32.7 MEQ/L (21.0-32.0); BLOOD UREA NITROGEN 18 MG/DL (7-18); CHLORIDE 102 MEQ/L (98-107); GLOMERULAR FILTRATION RATE 82 ML/MIN (>89); POTASSIUM 3.8 MEQ/L (3.5-5.1); SODIUM (NA) 140 MEQ/L (136-145); TOTAL BILIRUBIN ADULT 0.2 MG/DL (0.2-1.0)
[2017-01-11] MEDS: ALPRAZolam 0.5 MG TAB PO PRN (22:00)
[2017-01-11] MEDS: CARISOPRODOL 350 MG TAB PO PRN (22:00)
[2017-01-11 22:02] LABS: WESTERGREN SEDIMENTATION RATE 54 mm/hr (0-30)
[2017-01-11] MEDS: CHOLECALCIFEROL (VIT D3) 5000 UNIT CAP PO SCH (22:42)
[2017-01-12 00:56] VITALS: BP 153/81; PULSE 76; RESP 20; TEMP 98.5; O2SAT 96
[2017-01-12 04:00] VITALS: BP 126/62; PULSE 85; RESP 20; TEMP 97.3; O2SAT 94
[2017-01-12] MEDS: ACETAMINOPHEN/HYDROcodone 325 MG/10 MG TAB PO PRN ×3 (04:12→21:31)
[2017-01-12] MEDS: LEVOTHYROXINE SODIUM 88 MCG TAB PO SCH (06:22)
[2017-01-12] MEDS: MORPHINE SULFATE 60 MG CONTROLLED RELEASE TAB PO SCH ×2 (06:22→18:32)
[2017-01-12 08:00] VITALS: BP 130/63; PULSE 77; RESP 20; TEMP 97; O2SAT 97
[2017-01-12] MEDS: predniSONE 1 MG TAB PO SCH (08:38)
[2017-01-12] MEDS: predniSONE 5 MG TAB PO SCH (08:38)
[2017-01-12] MEDS ORDERED: PANTOPRAZOLE SOD 40 MG DELAYED RELEASE TAB PO SCH (09:00)
--- NOTE | 2017-01-12 09:04 | PD.ORT.PN ---
Subjective Subjective Remarks Admitted with potential infection from right hip replacement. Culture obtained in office yesterday and sent to [facility]. Culture not on chart for this admission and might be a separate document Objective Vitals Vital Signs Date Time Temp Pulse Resp B/P Pulse Ox O2 Delivery O2 Flow Rate FiO2 01/12/17 04:00 97.3 85 20 126/62 94 01/12/17 00:56 98.5 76 20 153/81 96 01/11/17 21:15 97.6 78 21 147/76 99 Result Diagram: 01/11/17212401/11/172124 Assessment & Plan Assessment and Plan Status post revision right total hip replacement, 5 weeks postop. Probable superficial versus deep infection right total hip replacement. PLAN: Sedimentation rate and C-reactive protein elevated with normal white blood cell count. Patient may be mildly immunocompromise related to underlying medical conditions in current treatment. Scheduled today for I&D and exploration. Hopefully this is not a deep infection extending down to the components. Infectious disease consult pending Ronni Hoffmann MD Jan 12, 2017 09:04
[2017-01-12] MEDS: CARISOPRODOL 350 MG TAB PO PRN ×2 (09:58→21:37)
[2017-01-12] MEDS ORDERED: VANCOMYCIN 1,000 MG/NS 250 ML IV ONE ×2 (11:00)
[2017-01-12] MEDS ORDERED: GENTAMICIN SULFATE 80 MG/2 ML VIAL ONE (11:53)
[2017-01-12 12:00] VITALS: BP 138/67; PULSE 89; RESP 21; TEMP 96.9; O2SAT 97
[2017-01-12] MEDS ORDERED: PROPOFOL 200 MG/20 ML AMP IV ONE (12:00)
[2017-01-12] MEDS ORDERED: ONDANSETRON HCL 4 MG/2 ML VIAL IV PUSH ONE (12:00)
[2017-01-12] MEDS ORDERED: NORMOSOL R INJ 1,000 ML IV ONE (12:00)
[2017-01-12] MEDS ORDERED: KETOROLAC TROMETHAMINE 60 MG/2 ML (IM) VIAL IM ONE (12:00)
[2017-01-12] MEDS ORDERED: NEOSTIGMINE METHYLSULFATE 10 MG/10 ML VIAL IV PUSH ONE (12:00)
[2017-01-12] MEDS ORDERED: VANCOMYCIN HCL 1000 MG VIAL ONE (14:49)
[2017-01-12] MEDS ORDERED: TOBRAMYCIN SULFATE 1200 MG VIAL OTHER ONE (15:01)
[2017-01-12] MEDS ORDERED: SODIUM CHLORIDE 0.9% FLUSH 5 ML FLUSH IVF PRN (15:45)
[2017-01-12] MEDS ORDERED: ALPRAZolam 0.5 MG TAB PO PRN (15:45)
[2017-01-12] MEDS: LACTATED RINGER'S 1000 ML INJ 1,000 ML IV SCH (15:45)
[2017-01-12] MEDS ORDERED: ONDANSETRON HCL 4 MG/2 ML VIAL IVP PRN (15:45)
[2017-01-12] MEDS ORDERED: Post-op Orders (for Pharmacy) MISC XX ONE (15:45)
[2017-01-12] MEDS ORDERED: MISCELLANEOUS NURSING INFORMATION XX PRN (15:45)
[2017-01-12] MEDS ORDERED: NALOXONE HCL 0.4 MG/ML AMP IV PRN (15:45)
[2017-01-12] MEDS ORDERED: MISCELLANEOUS PHARMACY INFORMATION XX ONE (15:45)
[2017-01-12] MEDS ORDERED: MORPHINE SULFATE 60 MG CONTROLLED RELEASE TAB PO SCH ×2 (15:45→16:00)
[2017-01-12] MEDS ORDERED: CARISOPRODOL 350 MG TAB PO PRN (15:45)
[2017-01-12] MEDS ORDERED: oxyCODONE/ACETAMINOPHEN 5 MG/325 MG TAB PO PRN (15:45)
[2017-01-12] MEDS ORDERED: ALUMINUM/MAGNESIUM/SIMETH 30 ML CUP PO PRN (15:45)
--- NOTE | 2017-01-12 15:47 | PD.ID.CON ---
History of Present Illness Service ID Consult Requested By Dr Hoffmann Reason for Consult R hip drainage Primary Care Physician Unknown Diagnoses: History of Present Illness Patient is a 56-year-old female who had a previous [place] hip resurfacing of the right hip. Developped malfunctioning right total hip replacement arthroplasty and chronic dislocating right total hip replacement arthroplasty Sp Revision right total hip replacement arthroplasty, constrained liner on Dec 08, [address] Ronni Hoffmann She developped drainage from the incision ptractically sinmce the surgery, clear at first it became progressibele darker and cloudy Her clx is growing MSSA She was not on abx prior to admission Shje was given a dose of vancomycin Today she underwent debridement of her R hip and now is co pain She deneis fever, chills, nightsweats Review of Systems Except as stated in HPI: all other systems reviewed are Neg Past Family Social History Allergies: Coded Allergies: No Known Allergies (Unverified , 12/08/16) Past Medical History dermatomyosytis, on Rituxan Past Surgical History multple b/l hip surgeries (total of 5) Active Ordered Medications Medications where reviewed in EMR Antibiotics Include: vanco given on 01/12 Family History Non-Contributory. Social History No Tobacco. No ETOH. No Illicit Drugs. Physical Exam Vital Signs Vital Signs Date Time Temp Pulse Resp B/P Pulse Ox O2 Delivery O2 Flow Rate FiO2 01/12/17 12:00 96.9 89 21 138/67 97 01/12/17 08:00 97.0 77 20 130/63 97 01/12/17 04:00 97.3 85 20 126/62 94 01/12/17 00:56 98.5 76 20 153/81 96 01/11/17 21:15 97.6 78 21 147/76 99 Physical Exam CONSTITUTIONAL/GENERAL: This is an adequately nourished patient, in moderate discomfort 2/2 R hip pain TUBES/LINES/DRAINS: PORT in place L chest, site looks OK SKIN: No jaundice, rashes, or lesions. Skin temperature appropriate. Not diaphoretic. HEAD: Atraumatic. Normocephalic. EYES: Pupils equal and round and reactive. Extraocular motions intact. No scleral icterus. No injection or drainage. Fundi not examined. ENT: Hearing grossly normal. Nose without bleeding or purulent drainage. Oral mucosae without visible erythema, exudates, masses, or lesions. NECK: Trachea midline. Supple, nontender. CARDIOVASCULAR: Regular rate and rhythm without murmurs, gallops, or rubs. No JVD. Peripheral pulses symmetric. RESPIRATORY/CHEST: Symmetric, unlabored respirations. Clear to auscultation. Breath sounds equal bilaterally. No wheezes, rales, or rhonchi. GASTROINTESTINAL: Abdomen soft, non-tender, nondistended. No hepato-splenomegaly , or palpable masses. No guarding. Bowel sounds present. GENITOURINARY: Without palpable bladder distension. MUSCULOSKELETAL: Extremities without clubbing, cyanosis, or edema. No mottling or clubbing. Dressing over R hip, intact. LYMPHATICS: No palpable cervical or supraclavicular adenopathy. NEUROLOGICAL: Awake and alert. Motor and sensory grossly within normal limits. Follows commands. Noprmal speech. Moves all extremities. PSYCHIATRIC: No obvious anxiety/depression. no apparent hallucinations or other psychotic thought process. Laboratory SPECIMEN #: [id number] DELVIN: 01/11/17 1030 STATUS: RES RECD: 01/11/[address]: NON-STAFF PT ID: 'vidal BOX/PROVIDER ID: SOURCE: WOUND COPY TO: Jose Luis Moore MD SPDESC: THIGH UNKNOWN BILL CLIENT: ORDERED: WOUND CULTURE COMMENTS: FAX TO:[id number]. PHYSICIAN PHONE NUMBER: [phone] ASHLEY ESPANA PA-C QUERIES: Method of Collection: SWAB ACT WKST: GS 01/11/17 #3 WOUNDS 01/12/17 #1 Procedure Result Verified Site GRAM STAIN Final 01/11/17-1539 NO WBC'S SEEN FEW GRAM POSITIVE COCCI IN PAIRS AND CLUSTERS WOUND CULTURE Preliminary 01/12/17-1142 HEAVY GROWTH STAPHYLOCOCCUS AUREUS - MERCEDES TO FOLLOW Laboratory Tests Test 01/11/17 21:25 White Blood Count 9.1 Red Blood Count 3.29 Hemoglobin 10.9 Hematocrit 33.4 Mean Corpuscular Volume 101.6 Mean Corpuscular Hemoglobin 33.2 Mean Corpuscular Hemoglobin 32.7 Concent Red Cell Distribution Width 16.1 Platelet Count 393 Mean Platelet Volume 7.3 Neutrophils (%) (Auto) 80.1 Lymphocytes (%) (Auto) 12.7 Monocytes (%) (Auto) 5.6 Eosinophils (%) (Auto) 1.2 Basophils (%) (Auto) 0.4 Neutrophils # (Auto) 7.3 Lymphocytes # (Auto) 1.2 Monocytes # (Auto) 0.5 Eosinophils # (Auto) 0.1 Basophils # (Auto) 0.0 CBC Comment DIFF FINAL Differential Comment Erythrocyte Sedimentation Rate 54 Sodium Level 140 Potassium Level 3.8 Chloride Level 102 Carbon Dioxide Level 32.7 Anion Gap 5 Blood Urea Nitrogen 18 Creatinine 0.73 Estimat Glomerular Filtration 82 Rate Random Glucose 179 Calcium Level 8.7 Total Bilirubin 0.2 Aspartate Amino Transf 14 (AST/SGOT) Alanine Aminotransferase 14 (ALT/SGPT) Alkaline Phosphatase 58 C-Reactive Protein 7.90 Total Protein 5.9 Albumin 2.5 Result Diagram: 01/11/17212401/11/172124 Imaging Last Impressions Hip X-Ray 01/12/17 1545 Signed Impressions: Service Date/Time: Thursday, January 12, 2017 16:53 - CONCLUSION: Expected postoperative findings. Kobe Sanchez MD Assessment and Plan Assessment and Plan R prosthetic hip infx, MSSA sp debridement with abx beads placement today 01/12 - dc vancomycin - start cefazoline - fu final clx Discussed Condition With pt and her sister at b/s . 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
[2017-01-12] MEDS ORDERED: MORPHINE SULFATE 15 MG CONTROLLED RELEASE TAB PO SCH (16:00)
[2017-01-12] MEDS ORDERED: *MEPERIDINE 25 MG INJ VIAL PERIprocedural Use ONLY ONE (16:53)
[2017-01-12] MEDS ORDERED: *HYDROmorphone PF 1 MG VIAL PERIprocedural Use ONLY ONE (16:54)
[2017-01-12] MEDS ORDERED: fentaNYL CITRATE 250 MCG/5 ML AMP ONE (16:56)
[2017-01-12] MEDS ORDERED: MORPHINE SULFATE 4 MG/ML INJ ONE (16:56)
[2017-01-12] MEDS ORDERED: MIDAZOLAM HCL 2 MG/2 ML VIAL ONE (16:56)
[2017-01-12] MEDS ORDERED: *ONDANSETRON 4 MG VIAL PERIprocedural Use ONLY ONE (17:02)
[2017-01-12] MEDS: MORPHINE SULFATE 30 MG/30 ML PCA IV SCH ×2 (17:33→21:28)
--- NOTE | 2017-01-12 17:51 | RADRPT ---
EXAM DATE/TIME: 01/12/2017 16:53 [facility] COMPARISON: HIP RIGHT (AP&LAT 2/3VWS) WO AP PELVIS, December 08, 2016, 14:25. INDICATIONS : Post irrigation and debridement of the right hip. MEDICAL HISTORY : None. SURGICAL HISTORY : ORIF right hip. ENCOUNTER: Initial ACUITY: 1 day PAIN SCORE: 10/10 LOCATION: Right hip. FINDINGS: Interval placement of antibiotic beads about the proximal femur and lateral acetabular region. Sagit stephan drains also in place. Right total hip arthroplasty stable in appearance. CONCLUSION: Expected postoperative findings. Kobe Sanchez MD on January 12, 2017 at 17:48 Board Certified Radiologist. This report was verified electronically.
[2017-01-12] MEDS: MORPHINE SULFATE 15 MG CONTROLLED RELEASE TAB PO SCH (18:32)
[2017-01-12] MEDS: ceFAZolin 2 GM PREMIX 50 ML IV SCH (18:37)
[2017-01-12 20:00] VITALS: BP 116/55; PULSE 99; RESP 20; TEMP 97.3; O2SAT 96
[2017-01-12] MEDS ORDERED: HYDROCORTISONE SOD SUCCINATE 100 MG VIAL IM ONE (20:00)
[2017-01-12] MEDS ORDERED: FOLIC ACID 1 MG TAB PO SCH (21:00)
[2017-01-12] MEDS: MAGNESIUM HYDROXIDE SUSP 30 ML CUP PO SCH (21:00)
[2017-01-12] MEDS ORDERED: SENNOSIDES DOCUSATE SODIUM PO SCH (21:00)
[2017-01-12] MEDS ORDERED: CHOLECALCIFEROL (VIT D3) 5000 UNIT CAP PO SCH (21:00)
[2017-01-12] MEDS ORDERED: DULoxetine HCl DR 60 MG CAP PO SCH (21:00)
[2017-01-12] MEDS: DOXEPIN PO SCH (21:00)
[2017-01-12] MEDS: SODIUM CHLORIDE 0.9% FLUSH 5 ML FLUSH IVF SCH (21:00)
[2017-01-12] MEDS: CHOLECALCIFEROL (VIT D3) 5000 UNIT CAP PO SCH (21:35)
[2017-01-12] MEDS: FOLIC ACID 1 MG TAB PO SCH (21:36)
[2017-01-12] MEDS: ESTROGEN/METHYLTESTOSTERONE 1.25 MG/2.5 MG TAB PO SCH (21:36)
[2017-01-12] MEDS: SENNOSIDES 8.6 MG TAB PO SCH (21:36)
[2017-01-12] MEDS: DULoxetine HCl DR 60 MG CAP PO SCH (21:36)
[2017-01-12] MEDS: DOCUSATE SODIUM 50 MG/SENNA 8.6 MG TAB PO SCH (21:36)
[2017-01-12] MEDS: ALPRAZolam 0.5 MG TAB PO PRN (21:37)
[2017-01-12] MEDS: PCA - TOTAL MG MORPHINE DELIVERED PER SHIFT SCH (21:38)
--- NOTE | 2017-01-12 23:53 | EKG ---
Date Performed: 01/12/2017 Time Performed: 12:04:37 PTAGE: 56 years EKG: Sinus rhythm NORMAL ECG PREVIOUS TRACING : 11/23/2016 08.59 Compared to prior tracing no significant change DOCTOR: Kenji Conroy Interpretating Date/Time 01/12/2017 23:51:56
[2017-01-13] VITALS: BP 128/58; PULSE 95; RESP 20; TEMP 98; O2SAT 92
[2017-01-13] MEDS: ceFAZolin 2 GM PREMIX 50 ML IV SCH ×3 (01:42→17:19)
[2017-01-13] MEDS: MORPHINE SULFATE 15 MG CONTROLLED RELEASE TAB PO SCH ×3 (01:43→17:21)
[2017-01-13] MEDS: MORPHINE SULFATE 60 MG CONTROLLED RELEASE TAB PO SCH ×3 (01:43→17:21)
[2017-01-13] MEDS: ACETAMINOPHEN/HYDROcodone 325 MG/10 MG TAB PO PRN ×4 (01:43→17:32)
[2017-01-13] MEDS: MORPHINE SULFATE 30 MG/30 ML PCA IV SCH ×4 (01:50→12:50)
[2017-01-13] MEDS: LACTATED RINGER'S 1000 ML INJ 1,000 ML IV SCH ×2 (04:15→16:04)
[2017-01-13] MEDS: PCA - TOTAL MG MORPHINE DELIVERED PER SHIFT SCH ×3 (06:00→22:00)
[2017-01-13] MEDS ORDERED: predniSONE 10 MG TAB PO ONE (06:00)
[2017-01-13 07:58] LABS: HEMATOCRIT 32.7 % (35.0-46.0); REVIEW FLAG FINAL
[2017-01-13 08:00] VITALS: BP 120/57; PULSE 83; RESP 20; TEMP 96.5; O2SAT 93
[2017-01-13] MEDS: LEVOTHYROXINE SODIUM 88 MCG TAB PO SCH (08:20)
[2017-01-13] MEDS: predniSONE 5 MG TAB PO SCH (08:21)
[2017-01-13] MEDS: predniSONE 1 MG TAB PO SCH (08:21)
[2017-01-13] MEDS: SODIUM CHLORIDE 0.9% FLUSH 5 ML FLUSH IVF SCH ×2 (08:21→21:00)
[2017-01-13] MEDS: PANTOPRAZOLE SOD 40 MG DELAYED RELEASE TAB PO SCH (08:22)
[2017-01-13] MEDS: MAGNESIUM HYDROXIDE SUSP 30 ML CUP PO SCH ×2 (08:23→21:00)
[2017-01-13] MEDS ORDERED: predniSONE 5 MG TAB PO SCH (09:00)
[2017-01-13] MEDS ORDERED: LEVOTHYROXINE SODIUM 88 MCG TAB PO SCH (09:00)
[2017-01-13] MEDS ORDERED: predniSONE 1 MG TAB PO SCH (09:00)
[2017-01-13 12:00] VITALS: BP 145/70; PULSE 75; RESP 20; TEMP 97.9; O2SAT 93
--- NOTE | 2017-01-13 13:17 | PD.ORT.PN ---
Subjective Subjective Remarks Patient seen earlier today. Right hip pain well controlled with SHIRRING MACHINE OPERATOR. Increased drainage in right hip drain catch. No new leg pain. Denies fever, abd pain, dizziness, CP or SOB. Many questions about surgery. Objective Vitals Vital Signs Date Time Temp Pulse Resp B/P Pulse Ox O2 Delivery O2 Flow Rate FiO2 01/13/17 12:50 18 01/13/17 08:16 16 01/13/17 08:00 96.5 83 20 120/57 93 01/13/17 06:00 18 01/13/17 04:59 18 01/13/17 01:50 18 01/13/17 00:00 98.0 95 20 128/58 92 01/12/17 21:38 18 01/12/17 21:28 18 01/12/17 20:00 97.3 99 20 116/55 96 01/12/17 17:33 16 01/12/17 17:15 75 16 137/61 99 Nasal Cannula 2 01/12/17 17:00 69 16 146/72 97 Nasal Cannula 2 01/12/17 16:45 65 16 142/67 100 Nasal Cannula 2 01/12/17 16:44 97.0 75 16 138/76 99 Nasal Cannula 2 01/12/17 15:58 I/O 01/12/17 01/12/17 01/12/17 01/13/17 01/13/17 01/13/17 07:00 15:00 23:00 07:00 15:00 23:00 Intake Total 1800 ml Output Total 1525 ml 100 ml Balance 275 ml -100 ml Intake Oral 100 ml IV Total 100 ml Other 1600 ml Output Urine Total 350 ml Drainage Total 75 ml 100 ml Estimated Blood Loss 150 ml Other 950 ml # Voids 4 3 Result Diagram: 01/13/17 0731 01/11/175 Imaging Last 24 hours Impressions Hip X-Ray 01/12/17 1545 Signed Impressions: Service Date/Time: Thursday, January 12, 2017 16:53 - CONCLUSION: Expected postoperative findings. Kobe Sanchez MD Objective Remarks Sitting up in bed, No acute distress VSS RLE Right hip drain in place, hip dressing c/d/i with minimal drainage, mild erythema, moderate warmth thigh and calf both supple, neg homans +motor at, +sens, +nvi Assessment & Plan Ortho Post Op Day #: 1 Problem List: Assessment and Plan s/p Rev Right OMEGA 12/08/16 pod#1 s/p I&D right hip with placement antibiotic beads Immunocompromised - multiple immunodeficiency disorders Continue SHIRRING MACHINE OPERATOR for pain control. She takes narcotics outpatient. Continue drain for an additional 24 hours. Likely can d/c tomorrow am. PT - WBAT RLE w walker. Dry dressing changes beginning tomorrow when drain is pulled. ID consulted - IV antiotics. Further treatment pending cultures. Likley staph infection. May need full revision with removal components. To be determined pending progression. Discussed surgery and anticipated course of treatment - we recognize the patient is immunocompromised and takes prednisone, methotrexate and rituxan. Irma Robert Jan 13, 2017 13:17
[2017-01-13 14:00] VITALS: BP 142/72; PULSE 77; RESP 19; TEMP 97.4; O2SAT 95
[2017-01-13] MEDS: RIVAROXABAN 10 MG TAB PO SCH (15:38)
[2017-01-13 17:28] VITALS: RESP 17
[2017-01-13 20:00] VITALS: BP 143/78; PULSE 72; RESP 20; TEMP 97.2; O2SAT 96
[2017-01-13] MEDS: DOXEPIN PO SCH (21:00)
[2017-01-13] MEDS: ESTROGEN/METHYLTESTOSTERONE 1.25 MG/2.5 MG TAB PO SCH (22:00)
[2017-01-13] MEDS: SENNOSIDES 8.6 MG TAB PO SCH (22:00)
[2017-01-13] MEDS: CHOLECALCIFEROL (VIT D3) 5000 UNIT CAP PO SCH (22:00)
[2017-01-13] MEDS: DOCUSATE SODIUM 50 MG/SENNA 8.6 MG TAB PO SCH (22:00)
[2017-01-13] MEDS: DULoxetine HCl DR 60 MG CAP PO SCH (22:01)
[2017-01-13] MEDS: FOLIC ACID 1 MG TAB PO SCH (22:01)
[2017-01-13] MEDS: CARISOPRODOL 350 MG TAB PO PRN (22:01)
[2017-01-14] VITALS: BP 121/67; PULSE 91; RESP 20; TEMP 96.7; O2SAT 95
[2017-01-14] MEDS: MORPHINE SULFATE 15 MG CONTROLLED RELEASE TAB PO SCH ×3 (01:57→17:49)
[2017-01-14] MEDS: MORPHINE SULFATE 60 MG CONTROLLED RELEASE TAB PO SCH ×3 (01:58→17:48)
[2017-01-14] MEDS: ceFAZolin 2 GM PREMIX 50 ML IV SCH ×3 (02:00→17:51)
[2017-01-14 04:00] VITALS: BP 139/69; PULSE 89; RESP 20; TEMP 97.2; O2SAT 96
[2017-01-14] MEDS: LEVOTHYROXINE SODIUM 88 MCG TAB PO SCH (04:45)
[2017-01-14] MEDS: ACETAMINOPHEN/HYDROcodone 325 MG/10 MG TAB PO PRN ×5 (04:45→22:41)
[2017-01-14] MEDS: PCA - TOTAL MG MORPHINE DELIVERED PER SHIFT SCH ×2 (04:48→13:58)
[2017-01-14] MEDS: LACTATED RINGER'S 1000 ML INJ 1,000 ML IV SCH ×2 (04:49→09:19)
[2017-01-14] MEDS: CARISOPRODOL 350 MG TAB PO PRN ×4 (06:46→21:07)
[2017-01-14 08:03] VITALS: BP 132/83; PULSE 87; RESP 20; TEMP 97.6; O2SAT 100
[2017-01-14] MEDS: SODIUM CHLORIDE 0.9% FLUSH 5 ML FLUSH IVF SCH ×2 (09:00→21:00)
[2017-01-14] MEDS: MAGNESIUM HYDROXIDE SUSP 30 ML CUP PO SCH ×2 (09:10→21:13)
[2017-01-14] MEDS: predniSONE 1 MG TAB PO SCH (09:16)
[2017-01-14] MEDS: PANTOPRAZOLE SOD 40 MG DELAYED RELEASE TAB PO SCH (09:17)
[2017-01-14] MEDS: predniSONE 5 MG TAB PO SCH (09:17)
--- NOTE | 2017-01-14 11:09 | MP ---
cc: SAWYER ARTEAGA M.D. DATE OF SURGERY 01/12/2017 PREOPERATIVE DIAGNOSES 1. Status post revision right total hip replacement arthroplasty. 2. Infection right total hip replacement arthroplasty. POSTOPERATIVE DIAGNOSES 1. Status post revision right total hip replacement arthroplasty. 2. Infection right total hip replacement arthroplasty. PROCEDURE 1. Incision, debridement and irrigation right hip replacement arthroplasty. 2. Placement of antibiotic beads with antibiotic delivery system. SURGEON Sawyer Arteaga MD ANIMAL BEHAVIOURIST Caridad Julien PA-C ANESTHESIA General. ESTIMATED BLOOD LOSS 200 cc. INDICATION This patient is a 56-year-old female known to the undersigned. She had a previous BHR hip replacement arthroplasty performed in [place] many years ago. 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 The patient had solid placed components but developed chronic dislocation. 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 Approximately five weeks ago she came to revision with a constrained liner. She presented to the office yesterday noting she was having drainage from the right hip. A culture was obtained. She was brought to the hospital. She now presents for incision and drainage. NOTE Caridad Julien PA-C, was present during the entire surgical seizure as my housekeeper and laundry assistant. In my medical opinion, her skill and care was necessary for the proper management of this patient. PROCEDURE The patient was brought to the operating room, anesthetized in supine position. She rolled to right side lateral position and held. The right hip and leg were scrubbed with alcohol, followed by Hibiclens, followed by Chloraprep and draped sterilely. There was cellulitis involving the incision. A small amount of drainage was seen in the distal part. This was completely excised and carried down to a fluid collection that was superficial to the fascia. This was a curetted of material and a tissue culture sent down to microbiology. We could see one small area that there was a puncture area going through the deep fascia. We went ahead and opened everything, cleaned everything all the way down to the hip joint. This was irrigated with multiple liters of antibiotic irrigation. We made methacrylate beads on the back table with tobramycin and vancomycin mixed together with Biomet cement. We made small beads and placed on a PDS suture. These were placed around this region. The wound was irrigated again and a deep drain was brought through a separate stab in the incision. The fascia was closed with running #1 PDS, the subcutaneous tissue with 2-0 Monocryl and the skin with 3-0 nylon in mattress fashion. Sponge count and needle counts, instrument counts were all correct. The patient tolerated the procedure well and was taken to the recovery room in satisfactory something. MD MESSI Garcia/PERRY /6:24 PM /10:57 AM
[2017-01-14 12:00] VITALS: BP 119/64; PULSE 84; RESP 20; TEMP 98.5; O2SAT 93
[2017-01-14 15:44] VITALS: BP 115/63; PULSE 84; RESP 20; TEMP 98.9; O2SAT 94
--- NOTE | 2017-01-14 15:48 | HHI.IDPN ---
Subjective Subjective Remarks Pt is doing ok still co R hip pain no fever tolerates abx OK Antibiotics cefazolin Allergies: Coded Allergies: No Known Allergies (Unverified , 12/08/16) Objective . Vital Signs Date Time Temp Pulse Resp B/P Pulse Ox O2 Delivery O2 Flow Rate FiO2 01/14/17 12:00 98.5 84 20 119/64 93 01/14/17 08:03 97.6 87 20 132/83 100 01/14/17 04:00 97.2 89 20 139/69 96 01/14/17 00:00 96.7 91 20 121/67 95 01/13/17 20:00 97.2 72 20 143/78 96 01/13/17 17:28 17 01/13/17 01/13/17 01/14/17 15:00 23:00 07:00 Intake Total 240 ml Output Total 750 ml 600 ml 275 ml Balance -750 ml -360 ml -275 ml Intake Oral 240 ml Output Urine Total 750 ml 450 ml 275 ml Drainage Total 150 ml # Bowel Movements 0 0 0 . Laboratory Tests Test 01/13/17 07:31 Hemoglobin 11.1 GM/DL Hematocrit 32.7 % Microbiology Date/Time Procedure Status Source Growth 01/12/17 14:32 Gram Stain - Final Complete Wound Hip 01/12/17 14:32 Wound Culture - Final Complete Viridans Streptococcus Grp 01/12/17 14:32 Acid Fast Stain - Final Resulted Wound Hip NO ACID FAST BACILLI SEEN 01/12/17 14:32 Mycobacterial Culture Resulted Wound Hip Pending 01/12/17 14:32 Fungal Smear - Final Resulted Wound Hip NO FUNGAL ELEMENTS SEEN. 01/12/17 14:32 Fungal Culture Resulted Wound Hip Pending 01/12/17 15:25 Gram Stain - Final Complete Wound Hip 01/12/17 15:25 Wound Culture - Final Complete Viridans Streptococcus Grp 01/12/17 15:25 Acid Fast Stain - Final Resulted Wound Hip NO ACID FAST BACILLI SEEN 01/12/17 15:25 Mycobacterial Culture Resulted Wound Hip Pending 01/12/17 15:25 Fungal Smear - Final Resulted Wound Hip NO FUNGAL ELEMENTS SEEN. 01/12/17 15:25 Fungal Culture Resulted Wound Hip Pending Imaging Last Impressions Hip X-Ray 01/12/17 0915 Signed Impressions: Service Date/Time: Thursday, January 12, 2017 16:53 - CONCLUSION: Expected postoperative findings. Kobe Sanchez MD Physical Exam CONSTITUTIONAL/GENERAL: This is an adequately nourished patient, in moderate discomfort 2/2 R hip pain TUBES/LINES/DRAINS: PORT in place L chest, site looks OK SKIN: No jaundice, rashes, or lesions. Skin temperature appropriate. Not diaphoretic. HEAD: Atraumatic. Normocephalic. EYES: Pupils equal and round and reactive. Extraocular motions intact. No scleral icterus. No injection or drainage. Fundi not examined. ENT: Hearing grossly normal. Nose without bleeding or purulent drainage. Oral mucosae without visible erythema, exudates, masses, or lesions. NECK: Trachea midline. Supple, nontender. CARDIOVASCULAR: Regular rate and rhythm without murmurs, gallops, or rubs. No JVD. Peripheral pulses symmetric. RESPIRATORY/CHEST: Symmetric, unlabored respirations. Clear to auscultation. Breath sounds equal bilaterally. No wheezes, rales, or rhonchi. GASTROINTESTINAL: Abdomen soft, non-tender, nondistended. No hepato-splenomegaly , or palpable masses. No guarding. Bowel sounds present. GENITOURINARY: Without palpable bladder distension. MUSCULOSKELETAL: Extremities without clubbing, cyanosis, or edema. No mottling or clubbing. Dressing over R hip, intact. LYMPHATICS: No palpable cervical or supraclavicular adenopathy. NEUROLOGICAL: Awake and alert. Motor and sensory grossly within normal limits. Follows commands. Noprmal speech. Moves all extremities. PSYCHIATRIC: No obvious anxiety/depression. no apparent hallucinations or other psychotic thought process. Laboratory SPECIMEN #: [id number] DELVIN: 01/11/17 1030 STATUS: RES RECD: 01/11/[address]: NON-STAFF PT ID: 'vidal BOX/PROVIDER ID: SOURCE: WOUND COPY TO: Jose Luis Moore MD SPDESC: THIGH UNKNOWN BILL CLIENT: ORDERED: WOUND CULTURE COMMENTS: FAX TO:[phone]. PHYSICIAN PHONE NUMBER: [phone] ASHLEY ESPANA PA-C QUERIES: Method of Collection: SWAB ACT WKST: GS 01/11/17 #3 WOUNDS 01/12/17 #1 Procedure Result Verified Site GRAM STAIN Final 01/11/17-1539 NO WBC'S SEEN FEW GRAM POSITIVE COCCI IN PAIRS AND CLUSTERS WOUND CULTURE Preliminary 01/12/17-1142 HEAVY GROWTH STAPHYLOCOCCUS AUREUS - MERCEDES TO FOLLOW Assessment & Plan Remarks R prosthetic hip infx, MSSA - repeat clx with viridans strep sp revision in November sp debridement with abx beads placement today 01/12 with retained infected prosthesis Dermatomyosystis, on Rituxan (on hold since Sep), prednisone, MTX - cont cefazoline x 6 wks - add po rifampin - if no improvement during tx or recurrence of infx after abx d/c'd will need removal of prosthesis with 2 stage procedure - avoid im munosuppression if feasible until resolution of infx dw Nga Morel MD Jan 14, 2017 15:48
--- NOTE | 2017-01-14 15:51 | HHI.FF ---
Infusion Therapy Location of Infusion Therapy: [facility] IV Infusion Order Patient Information Patient Weight 89.7 kg Diagnosis: Coded Allergies: No Known Allergies (Unverified , 12/08/16) Administer Medication Cefazolin 2 grams IV q 8 hours Start Treatment: Jan 14, 2017 Stop Treatment: February 24, 2017 Additional Information Venous access: Implanted Port Additional Instructions [x] Peripheral flush and dressing changes per protocol [x] Implanted port and central line up worker: * Implanted port: 10 ml Normal Saline followed by 5 ml Heparin 100 units/ml Heparin flush after each use and monthly to maintain. [] May leave port accessed during therapy. [] May leave peripheral site accessed for duration of therapy. [x] If patient has SOB or respiratory distress, check oxygen saturation. If less than 90% or clinical signs of respiratory distress, administer oxygen at 2 L/min. via nasal cannula and notify physician. [x] Anaphylaxis/Reaction orders: * Stop infusion. * Keep IV line open with saline flush. * Notify physician. * Monitor vital signs every 15 minutes until symptoms resolve. * Check Oxygen saturation; Oxygen at 2 L/min. via nasal cannula if less than 90% or clinical signs of respiratory distress. * Administer diphenhydramine (Benadryl) 25 mg IV STAT, (unless patient has received as pre-med). May repeat once, if necessary. * Solu-Cortef 250 mg IVP over 30-60 seconds, use 100 mg vials for each dissolution. * Epinephrine (1mg/1 ml) 0.3 mg subcutaneously or IVP now with any signs of respiratory distress. * Check with physician for new additional pre-med orders if patient is re- challenged or re-treated. [x] May remove PICC line when treatment complete, after confirming with Physician. [x] If the patient is admitted to the hospital, the ED, or transferred via [facility] , complete transfer form including medication reconciliation order sheet. Laboratory Tests Weekly Labs: CBC w/diff, Creatinine, LFT's (Hepatic function test), SED Rate Nga Ariza MD Jan 14, 2017 15:51
--- NOTE | 2017-01-14 16:12 | PD.ORT.PN ---
Subjective Subjective Remarks Patient seen by Dr. Ronni Hoffmann earlier today. Pt states pain poorly controlled last night. She was given morphine but not 'breakthrough' meds. No complaints otherwise. Further questions about surgery and treatment. Denies fever, abd pain, dizziness, CP or SOB. Objective Vitals Vital Signs Date Time Temp Pulse Resp B/P Pulse Ox O2 Delivery O2 Flow Rate FiO2 01/14/17 15:44 98.9 84 20 115/63 94 01/14/17 12:00 98.5 84 20 119/64 93 01/14/17 08:03 97.6 87 20 132/83 100 01/14/17 04:00 97.2 89 20 139/69 96 01/14/17 00:00 96.7 91 20 121/67 95 01/13/17 20:00 97.2 72 20 143/78 96 01/13/17 17:28 17 I/O 01/13/17 01/13/17 01/13/17 01/14/17 01/14/17 01/14/17 07:00 15:00 23:00 07:00 15:00 23:00 Intake Total 240 ml 480 ml Output Total 100 ml 750 ml 600 ml 275 ml 60 ml 200 ml Balance -100 ml -750 ml -360 ml -275 ml -60 ml 280 ml Intake Oral 240 ml 480 ml Output Urine Total 750 ml 450 ml 275 ml 200 ml Drainage Total 100 ml 150 ml 60 ml # Bowel Movements 0 0 0 Result Diagram: 01/13/17 0731 01/11/17 2125 Imaging Last 24 hours Impressions Hip X-Ray 01/12/17 1545 Signed Impressions: Service Date/Time: Thursday, January 12, 2017 16:53 - CONCLUSION: Expected postoperative findings. Kobe Sanchez MD Objective Remarks Patient evaluated by Dr. Ronni Hoffmann Sitting up in bed, No acute distress VSS RLE Right hip drain in place, hip dressing c/d/i, no new drainage, mild erythema, moderate warmth thigh and calf both supple, neg homans +motor at, +sens, +nvi Assessment & Plan Ortho Post Op Day #: 2 Problem List: Assessment and Plan s/p Rev Right OMEGA 12/08/16 pod#1 s/p I&D right hip with placement antibiotic beads Immunocompromised - multiple immunodeficiency disorders Continue TRUCK GUARD for pain control. She takes narcotics outpatient. D/C right hip drain. D/C stanton catheter. PT - WBAT RLE w walker. Dry dressing changes daily w etoh. ID consulted - IV antiotic including cefazolin and rifampin. Full revisional surgery pending response to antibiotics. Discussed surgery and anticipated course of treatment - we recognize the patient is immunocompromised and takes prednisone, methotrexate and rituxan. Irma Robert Jan 14, 2017 16:12
[2017-01-14] MEDS: RIVAROXABAN 10 MG TAB PO SCH (16:15)
[2017-01-14] MEDS: oxyCODONE/ACETAMINOPHEN 5 MG/325 MG TAB PO PRN ×2 (16:21→21:08)
[2017-01-14 20:00] VITALS: BP 117/66; PULSE 78; RESP 20; TEMP 98.5; O2SAT 96
[2017-01-14] MEDS: DOXEPIN PO SCH (21:00)
[2017-01-14] MEDS: DULoxetine HCl DR 60 MG CAP PO SCH (21:08)
[2017-01-14] MEDS: FOLIC ACID 1 MG TAB PO SCH (21:08)
[2017-01-14] MEDS: ALPRAZolam 0.5 MG TAB PO PRN (21:08)
[2017-01-14] MEDS: ESTROGEN/METHYLTESTOSTERONE 1.25 MG/2.5 MG TAB PO SCH (21:09)
[2017-01-14] MEDS: RIFAMPIN 150 MG CAP PO SCH (21:09)
[2017-01-14] MEDS: CHOLECALCIFEROL (VIT D3) 5000 UNIT CAP PO SCH (21:09)
[2017-01-14] MEDS: SENNOSIDES 8.6 MG TAB PO SCH (21:12)
[2017-01-14] MEDS: DOCUSATE SODIUM 50 MG/SENNA 8.6 MG TAB PO SCH (21:13)
[2017-01-15] VITALS: BP 110/56; PULSE 82; RESP 20; TEMP 97.4; O2SAT 93
[2017-01-15] MEDS: ceFAZolin 2 GM PREMIX 50 ML IV SCH ×3 (01:08→17:05)
[2017-01-15] MEDS: MORPHINE SULFATE 60 MG CONTROLLED RELEASE TAB PO SCH ×3 (01:09→17:36)
[2017-01-15] MEDS: MORPHINE SULFATE 15 MG CONTROLLED RELEASE TAB PO SCH ×3 (01:09→17:37)
[2017-01-15] MEDS: oxyCODONE/ACETAMINOPHEN 5 MG/325 MG TAB PO PRN ×2 (01:11→06:09)
[2017-01-15] MEDS: ALPRAZolam 0.5 MG TAB PO PRN ×2 (03:57→22:29)
[2017-01-15] MEDS: CARISOPRODOL 350 MG TAB PO PRN ×5 (03:57→22:30)
[2017-01-15] MEDS: ACETAMINOPHEN/HYDROcodone 325 MG/10 MG TAB PO PRN ×5 (03:59→22:32)
[2017-01-15 04:00] VITALS: BP 122/64; PULSE 78; RESP 20; TEMP 97.4; O2SAT 94
[2017-01-15] MEDS: LEVOTHYROXINE SODIUM 88 MCG TAB PO SCH (06:08)
--- NOTE | 2017-01-15 07:55 | PD.ORT.PN ---
Subjective Subjective Remarks Right hip pain still present. PO meds help but feels 2tabs every 4 hours would be 'better'. Patient took significant pain meds prior to surgery. No other complaints or concerns. Still denies fever, abd pain, dizziness, CP or SOB. Objective Vitals Vital Signs Date Time Temp Pulse Resp B/P Pulse Ox O2 Delivery O2 Flow Rate FiO2 01/15/17 04:00 97.4 78 20 122/64 94 01/15/17 00:00 97.4 82 20 110/56 93 01/14/17 20:00 98.5 78 20 117/66 96 01/14/17 15:44 98.9 84 20 115/63 94 01/14/17 12:00 98.5 84 20 119/64 93 01/14/17 08:03 97.6 87 20 132/83 100 I/O 01/14/17 01/14/17 01/14/17 01/15/17 01/15/17 01/15/17 07:00 15:00 23:00 07:00 15:00 23:00 Intake Total 720 ml Output Total 275 ml 75 ml 200 ml Balance -275 ml -75 ml 520 ml Intake Oral 720 ml Output Urine Total 275 ml 200 ml Drainage Total 75 ml # Voids 4 2 # Bowel Movements 0 0 0 Result Diagram: 01/13/17 0731 01/11/172124 Imaging Last 24 hours Impressions Hip X-Ray 01/12/17 1545 Signed Impressions: Service Date/Time: Thursday, January 12, 2017 16:53 - CONCLUSION: Expected postoperative findings. Kobe Sanchez MD Objective Remarks Patient evaluated by Dr. Ronni Hoffmann Sitting up in bed, No acute distress VSS RLE Right hip drain removed, hip dressing c/d/i, minimal drainage today, mild erythema, moderate warmth thigh and calf both supple, neg homans +motor at, +sens, +nvi Assessment & Plan Ortho Post Op Day #: 3 Problem List: Assessment and Plan s/p Rev Right OMEGA 12/08/16 pod#1 s/p I&D right hip with placement antibiotic beads Immunocompromised - multiple immunodeficiency disorders PO pain meds as written. Will change to 2 tabs po [id number] today. Dry dressing changes daily w etoh. PT - WBAT RLE w walker. ID consulted - IV antiotic including cefazolin and rifampin. Will need 6 weeks treatment. Patient has port already. Full revisional surgery pending response to antibiotics after 6 weeks. Discussed surgery and anticipated course of treatment - we recognize the patient is immunocompromised and takes prednisone, methotrexate and rituxan. Recommended to keep immunosuppression medications to a minimum while under active treatment for infection. If cleared by TRINI emerson for discharge later today. Irma Robert Jan 15, 2017 07:55
[2017-01-15] MEDS: predniSONE 5 MG TAB PO SCH (08:09)
[2017-01-15] MEDS: PANTOPRAZOLE SOD 40 MG DELAYED RELEASE TAB PO SCH (08:09)
[2017-01-15] MEDS: RIFAMPIN 150 MG CAP PO SCH ×2 (08:09→22:29)
[2017-01-15] MEDS: predniSONE 1 MG TAB PO SCH (08:09)
[2017-01-15] MEDS: SODIUM CHLORIDE 0.9% FLUSH 5 ML FLUSH IVF SCH ×2 (08:09→21:00)
[2017-01-15] MEDS: MAGNESIUM HYDROXIDE SUSP 30 ML CUP PO SCH ×2 (08:09→22:30)
[2017-01-15 08:21] VITALS: BP 117/63; PULSE 83; RESP 18; TEMP 97.2; O2SAT 99
[2017-01-15] MEDS ORDERED: RIFA300C2 PO (12:15)
[2017-01-15 12:39] VITALS: BP 108/58; PULSE 88; RESP 17; TEMP 97.6; O2SAT 95
[2017-01-15] MEDS: PCA - TOTAL MG MORPHINE DELIVERED PER SHIFT SCH ×2 (14:00→22:00)
[2017-01-15 16:22] VITALS: BP 103/61; PULSE 98; RESP 18; TEMP 96.8; O2SAT 95
[2017-01-15] MEDS: RIVAROXABAN 10 MG TAB PO SCH (17:05)
[2017-01-15 20:00] VITALS: BP 140/65; PULSE 71; RESP 20; TEMP 96.9; O2SAT 95
[2017-01-15] MEDS: DOXEPIN PO SCH (21:00)
[2017-01-15] MEDS: FOLIC ACID 1 MG TAB PO SCH (22:29)
[2017-01-15] MEDS: ESTROGEN/METHYLTESTOSTERONE 1.25 MG/2.5 MG TAB PO SCH (22:29)
[2017-01-15] MEDS: DULoxetine HCl DR 60 MG CAP PO SCH (22:29)
[2017-01-15] MEDS: SENNOSIDES 8.6 MG TAB PO SCH (22:30)
[2017-01-15] MEDS: DOCUSATE SODIUM 50 MG/SENNA 8.6 MG TAB PO SCH (22:30)
[2017-01-15] MEDS: CHOLECALCIFEROL (VIT D3) 5000 UNIT CAP PO SCH (22:31)
[2017-01-16] VITALS: BP 125/62; PULSE 76; RESP 20; TEMP 97.3; O2SAT 96
[2017-01-16] MEDS: ceFAZolin 2 GM PREMIX 50 ML IV SCH ×2 (01:32→09:11)
[2017-01-16] MEDS: MORPHINE SULFATE 60 MG CONTROLLED RELEASE TAB PO SCH ×2 (01:33→09:13)
[2017-01-16] MEDS: MORPHINE SULFATE 15 MG CONTROLLED RELEASE TAB PO SCH ×2 (01:35→09:12)
[2017-01-16 04:00] VITALS: BP 140/70; PULSE 83; RESP 20; TEMP 97; O2SAT 96
[2017-01-16] MEDS: PCA - TOTAL MG MORPHINE DELIVERED PER SHIFT SCH (06:00)
[2017-01-16] MEDS: CARISOPRODOL 350 MG TAB PO PRN ×2 (06:10→10:43)
[2017-01-16] MEDS: ALPRAZolam 0.5 MG TAB PO PRN (06:10)
[2017-01-16] MEDS: LEVOTHYROXINE SODIUM 88 MCG TAB PO SCH (06:10)
[2017-01-16] MEDS: ACETAMINOPHEN/HYDROcodone 325 MG/10 MG TAB PO PRN ×2 (06:13→10:44)
[2017-01-16 08:00] VITALS: BP 119/80; PULSE 68; RESP 19; TEMP 97.2; O2SAT 96
--- NOTE | 2017-01-16 08:26 | PD.ORT.PN ---
Subjective Subjective Remarks Doing well. Sitting in chair and walking without significant discomfort. Case discussed late with Dr. Ariza. Plan is for oral rifampin and IV antibiotics Objective Vitals Vital Signs Date Time Temp Pulse Resp B/P Pulse Ox O2 Delivery O2 Flow Rate FiO2 01/16/17 04:00 97.0 83 20 140/70 96 01/16/17 00:00 97.3 76 20 125/62 96 01/15/17 20:00 96.9 71 20 140/65 95 01/15/17 16:22 96.8 98 18 103/61 95 01/15/17 12:39 97.6 88 17 108/58 95 I/O 01/15/17 01/15/17 01/15/17 01/16/17 01/16/17 01/16/17 07:00 15:00 23:00 07:00 15:00 23:00 Intake Total 720 ml 240 ml 120 ml Balance 720 ml 240 ml 120 ml Intake Oral 720 ml 240 ml 120 ml # Voids 2 3 1 2 # Bowel Movements 0 1 0 Result Diagram: 01/13/17 0731 Imaging Last 24 hours Impressions Hip X-Ray 01/12/17 1545 Signed Impressions: Service Date/Time: Thursday, January 12, 2017 16:53 - CONCLUSION: Expected postoperative findings. Kobe Sanchez MD Objective Remarks Sitting in chair and walking. No drainage from incision. No significant redness. Tenderness. Leg lengths equal. Assessment & Plan Ortho Post Op Day #: 4 Problem List: Assessment and Plan s/p Rev Right OMEGA 12/08/16 pod#4 s/p I&D right hip with placement antibiotic beads Immunocompromised - multiple immunodeficiency disorders PO pain meds as written. Will change to 2 tabs po [id number] today. Dry dressing changes daily w etoh. PT - WBAT RLE w walker. ID consulted - IV antiotic including cefazolin and rifampin. Will need 6 weeks treatment. Patient has port already. Possible 2-stage revision, depending on response to antibiotics and treatment Discussed surgery and anticipated course of treatment - we recognize the patient is immunocompromised and takes prednisone, methotrexate and rituxan. Recommended to keep immunosuppression medications to a minimum while under active treatment for infection. If cleared by ID idania for discharge today. Ronni Hoffmann MD Jan 16, 2017 08:26
--- NOTE | 2017-01-16 08:30 | HHI.FF ---
Face to Face Verification Diagnosis: (1) Right hip pain (2) Infection of right prosthetic hip joint Nursing RN Days per Week: 5 x Week(s): 1 RN: 3 days/week x 2 weeks Dressing Changes: Daily dressing change, 4x4s, Coverderm/Primapore Additional Instructions RN for dressing care - dry dressing changes daily w etoh. *IV infusion care for antibiotics (see orders by Dr. Ariza) I have seen patient Verónica Brandt on 01/16/17. My clinical findings support the need for the requested home health care services because: Limited ability to care for self High risk of falls I certify that my clinical findings support that this patient is homebound because: Post-op weakness Unsteady gait/balance Irma Robert Jan 16, 2017 08:30
[2017-01-16] MEDS: predniSONE 1 MG TAB PO SCH (09:00)
[2017-01-16] MEDS: SODIUM CHLORIDE 0.9% FLUSH 5 ML FLUSH IVF SCH (09:00)
[2017-01-16] MEDS: MAGNESIUM HYDROXIDE SUSP 30 ML CUP PO SCH (09:10)
[2017-01-16] MEDS: predniSONE 5 MG TAB PO SCH (09:12)
[2017-01-16] MEDS: PANTOPRAZOLE SOD 40 MG DELAYED RELEASE TAB PO SCH (09:12)
[2017-01-16] MEDS: RIFAMPIN 150 MG CAP PO SCH (09:13)
[2017-01-17] MEDS ORDERED: METHOTREXATE 25 MG IM SCH (21:00)
--- NOTE | 2017-02-12 07:28 | MH ---
cc: SAWYER ARTEAGA DATE OF ADMISSION 01/11/2017 ADMISSION DIAGNOSIS Possible infected total hip replacement. HISTORY This patient is a 56-year-old female who has had a previous hip replacement on the right performed by another surgeon years ago. This came to revision after there was significant complication with metallosis. About a year ago, she came to revision hip arthroplasty. She did well, but was complicated by dislocations related to significant muscle imbalance from her metallosis. The patient came to revision to a constrained liner approximately six weeks ago. The patient called having redness and swelling of her incision with drainage. She presented to the office and was found to have evidence of a wound infection. A culture was taken in the office and she was now admitted to the hospital for evaluation and treatment. PAST MEDICAL HISTORY, SOCIAL HISTORY AND FAMILY HISTORY See attached notes. PHYSICAL EXAMINATION A large framed white female. She has a well-healed incision of the left hip, full range of motion. No discomfort. Right hip has a posterior extended incision. Drainage is seen. Redness and warmth is noted. Neurologic and vascular examination is within normal limits. X-ray showed evidence of a well-positioned revision style hip replacement arthroplasty without signs of loosening. IMPRESSION 1. Status post revision total hip replacement arthroplasty. 2. Wound infection PLAN 1. Consult infectious disease 2. Irrigation and debridement with management of her wound. If this proves to be a deep infection, she is at risk of coming to exchange to a antibiotic spacer. This can is going to be a complicated course because the patient has so much loss of muscle around her hip from her previous hip condition, she is at risk of dislocation if she does not have a constrained liner. CONSENT The risks of this injury and surgery including infection, bleeding, loss of motion, continued pain, need for further surgery, neurologic and vascular injury. The patient understands these issues and wishes to press on with surgery as outlined above. MD MESSI Garcia/YULISA /7:09 AM /7:17 AM [facility]ALSylvia
--- NOTE | 2017-02-23 11:32 | HHI.DS ---
Discharge Summary Admission Date Jan 11, 2017 at 16:22 Discharge Date: Jan 16, 2017 Admitting Diagnosis Possible sveta-prosthetic joint infection, right hip prosthesis Draining wound right hip incision Diagnosis: (1) Sveta-prosthetic osteolysis Diagnosis: Principal (2) Infection of right prosthetic hip joint Diagnosis: Principal Procedures Irrigation and debridement right hip and prosthesis, placement of antibiotic beads Brief History This is a 56 year old female patient with a history of right total hip arthroplasty. After multiple dislocations she underwent revisional right total hip arthroplasty with a constrained liner 12/08/16. She did well for several weeks but began to notice increasing redness and new drainage about the distal incision. She was seen outpatient 01/11 where cultures were taken and the patient was evaluated. It was decided she was high risk for a sveta-prosthetic infection so she was admitted the evening of 01/11. Surgical irrigation and debridement was planned for 01/12. PE at Discharge Sitting in chair and walking. No drainage from incision. No significant redness. Tenderness. Leg lengths equal. Hospital Course Surgical treatment in the form of irrigation and debridement right hip with placement of antibiotic beads was performed on 01/12/17. She recovered well in PACU and was transferred to a surgical recovery unit. She was evaluated by infectious disease and placed on cefazolin and rifampin. Outpatient cultures showed MSSA while inpatient cultures showed strep viridans. Her intraoperative drain was pulled pod#2. Her WBC counts were stable. After 4 days she was found to be stable and discharged home with instruction to continue rifampin and cefazolin for 6 weeks. Oral pain medications were discussed and she was to get those refilled from her pain management physician. Pt Condition on Discharge: Stable Discharge Disposition: Disch w/ Home Health Serv Discharge Instructions Diet Instructions: High Fiber Diet Activities You Can Perform: Weight Bearing as Nithya Activities to Avoid: Strenuous Activity Additional Activity Instruc.: Posterior OMEGA precautions. New Medications: Rifampin (Rifampin) 300 Mg Cap 300 MG PO BID Infection Days 40 Ref 0 Irma Sapp February 23, 2017 11:32
== END 2017-01-16 11:33 | disposition home health service (06) | DRG 464 ==
LOC: N05B 16:22 → N05A 21:30 → N05B 21:30
PROVIDERS: ADMIT Orthopaedic Surgery Orthopaedic Surgery of the Spine; ATTEND Orthopaedic Surgery Orthopaedic Surgery of the Spine
PROC: 3E0U029 Introduction of Other Anti-infective into Joints, Open Approach (ICD-10-PCS; 2017-01-12)
PROC: 0JBL0ZZ Excision of Right Upper Leg Subcutaneous Tissue and Fascia, Open Approach (ICD-10-PCS; principal; 2017-01-12 13:32)
DX: T84.51XA Infection and inflammatory reaction due to internal right hip prosthesis, initial encounter (principal); L03.115 Cellulitis of right lower limb; D84.9 Immunodeficiency, unspecified; Y79.2 Prosthetic and other implants, materials and accessory orthopedic devices associated with adverse incidents; Y92.009 Unspecified place in unspecified non-institutional (private) residence as the place of occurrence of the external cause; R79.82 Elevated C-reactive protein (CRP); B95.8 Unspecified staphylococcus as the cause of diseases classified elsewhere; B95.61 Methicillin susceptible Staphylococcus aureus infection as the cause of diseases classified elsewhere
CPT/HCPCS: 73502; 80053; 85014; 85018; 85025; 85652; 86140; 86403; 87015; 87070; 87077; 87102; 87116; 87147; 87186; 87205; 87206; 93005; 94150; J0690; J1170; J1580; J1720; J1885; J2175; J2250; J2270; J2405; J2710; J3010; J3260; J3370; J7050; J7120; J7512

== ENCOUNTER 2017-02-09 11:46 | Inpatient (IN) | payer OTHER ==
[~2017-02-09] VITALS: Ht 162.6 cm; Wt 82.6 kg
[2017-02-09] VITALS (7 sets, daily range): BP systolic 107–143; BP diastolic 53–72; PULSE 76–104; RESP 16–18; TEMP 98.3–101.7; O2SAT 98–100
[~2017-02-09 11:46] MED LIST changes: +RIFA300C2 PO
--- NOTE | 2017-02-09 11:54 | PD ---
Physical Exam Time Seen by Provider: 11:53 Narrative Hx osteomyelitis R hip currently recieving cafazolin, rifampin, sees Dr. Ariza. C/o fever for one week, tmax 103.7. Seen by Dr. Hoffmann 4 days ago , told to come here. Vital signs reviewed. Seen at triage desk. Awaiting bed placement. Data Data Last Documented VS Vital Signs Date Time Temp Pulse Resp B/P Pulse Ox O2 Delivery O2 Flow Rate FiO2 02/09/17 11:50 98.3 100 18 127/69 100 Room Air [facility] Medical Record Reviewed: Yes Supervised Visit with GONZALO: No Gopi Donohue February 09, 2017 11:54
[2017-02-09 12:56] LABS: AUTOMATED NEUTROPHIL # 4.8 TH/MM3 (1.8-7.7); BASOPHIL % 0.5 % (0.0-2.0); EOSINOPHIL # 0.6 TH/MM3 (0-0.4); EOSINOPHIL % 9.4 % (0.0-4.0); HEMATOCRIT 33.6 % (35.0-46.0); HEMO FLAGS DIFF FINAL; LYMPH % 6.5 % (9.0-44.0); LYMPHOCYTE # 0.4 TH/MM3 (1.0-4.8); MEAN CORPUSCULAR HEMOGLOBIN 30.8 PG (27.0-34.0); MEAN CORPUSCULAR HGB CONC 33.5 % (32.0-36.0); MONO % 9.2 % (0.0-8.0); NEUT % 74.4 % (16.0-70.0); PLATELET COUNT 359 TH/MM3 (150-450); RED BLOOD COUNT 3.65 MIL/MM3 (4.00-5.30); RED CELL DISTRIBUTION WIDTH 15.7 % (11.6-17.2); WHITE BLOOD COUNT 6.4 TH/MM3 (4.0-11.0)
--- NOTE | 2017-02-09 13:08 | PD ---
HPI Chief Complaint: Fever Time Seen by Provider: 13:03 Travel History International Travel<30 days: No Contact w/Intl Traveler<30days: No Traveled to known affect area: No History of Present Illness HPI 56-year-old female that presents to the ED for evaluation of fever. Patient has a chronic history of was to malaise secondary to infection to a arthroplasty to the right hip. Patient follows with Dr. Polanco and Dr. Ariza for infectious disease. Patient currently receiving IV antibiotics as well as rifampin. Patient reports that since the weekend on Wednesday she's been having high fevers as high as 102. Per patient yesterday and the fever went as high as 103. Fever does improve with medications which she takes Tylenol or ibuprofen and currently she has no fever she did took some Tylenol earlier today. Per patient she contacted the office of Dr. Polanco yesterday and they recommended that she comes here but she at the time declined and she was told that if the fever continues or gets worse she is to come back here. She was able to keep down the fever and continue her medications and today her fever came back as high as 103 and she took a medication which brought it down but she contacted her doctor who told her to come here. Per patient she was told to tell whoever sees her that we need to contact Dr. Polanco. She states that today she is having a little more pain on her right hip which feels like a burning. Per patient she believes that this is because she slept wrong on it. Per patient she has no cough or runny nose. Per patient when she gets the fever she gets lost chills and sweats and sometimes she gets dry heaving. She states that she has had no bowel movement issues but she believes to the antibiotics given to her side causing her a lot of side effects. She does have a history of Dermatomyositis and is to take a lot of immunosuppressants which have been discontinued because of her osteomyelitis. She denies any other new symptom. Pain per patient's 5 out of 10. She did took her pain medication today. She has no allergies to medication. She states that she continues to take the medications as prescribed to her. PFSH Past Medical History Arthritis: Yes Asthma: No Autoimmune Disease: Yes Anxiety: Yes Heart Rhythm Problems: No Cancer: No Cardiovascular Problems: Yes High Cholesterol: No Chemotherapy: Yes (RITUXAN (FOR DERMATOMYOCYTIS)) Chest Pain: No Congestive Heart Failure: No COPD: No Cerebrovascular Accident: No Diabetes: No Diminished Hearing: No Endocrine: Yes Gastrointestinal Disorders: Yes (POST GASTRIC SLEEVE) Genitourinary: No Hepatitis: No Hiatal Hernia: No Hypertension: Yes (SPIKES AFTER SURGERY) Immune Disorder: Yes (DERMATOMYOCYTIS) Implanted Vascular Access Dvce: Yes (Port) Musculoskeletal: Yes (DERMATOMYOSITIS/WEAKNESS, chronic R hip dislocations) Neurologic: Yes (SPINAL BIFIDA/LOW BACK PAIN) Psychiatric: Yes (ANXIETY/PANIC ATTACKS) Reproductive: No Respiratory: Yes (CPAP/SLEEP APEA) Migraines: No Seizures: No Sleep Apnea: No Thyroid Disease: Yes (HYPO) Tetanus Vaccination: > 5 Years Influenza Vaccination: Yes ?: Not Menopausal: Yes Past Surgical History Abdominal Surgery: Yes (GASTRIC SLEEVE) AICD: No Body Medical Devices: Left upper chest port Cardiac Surgery: No Ear Surgery: No Endocrine Surgery: No Eye Surgery: No Genitourinary Surgery: No Gynecologic Surgery: Yes (HYSTERECTOMY NIRAV SALPINGO-OOPHORECTOMY) Hysterectomy: Yes Joint Replacement: Yes (NIRAV TOTAL HIP) Neurologic Surgery: No Oral Surgery: Yes (NIRAV TMJ SX X 2) Pacemaker: No Thoracic Surgery: Yes (left upper chest power port) Other Surgery: Yes Social History Alcohol Use: No Tobacco Use: No Substance Use: No Allergies-Medications (Allergen,Severity, Reaction): Coded Allergies: No Known Allergies (Unverified , 02/09/17) Reported Meds & Prescriptions Reported Meds & Active Scripts Active Rifampin 300 Mg Cap 300 Mg PO BID 40 Days Xarelto (Rivaroxaban) 10 Mg Tab 10 Mg PO Q24H Oxycodone-Acetaminophen 5-325 mg Tab 1 Tab PO Q4H PRN Reported Morphine ER (Morphine Sulfate) 60 Mg Tab 90 Mg PO Q8H Duloxetine DR (Duloxetine HCl) 60 Mg Capdr 60 Mg PO HS Covaryx (Estrogens, Esterified-Methyltestosterone) 1.25-2.5 Mg Tab 1 Tab PO HS Synthroid (Levothyroxine Sodium) 88 Mcg Tab 88 Mcg PO DAILY Senna-S 8.6-50 mg (Sennosides-Docusate Sodium) 1 Tab Tab 1-3 Tab PO HS Rituxan Inj (Rituximab) 500 Mg/50 Ml Inj 1,000 Mg IV EVERY 8 WEEKS Prednisone 5 Mg Tab 8 Mg PO DAILY Take 1 tablet (5mg) with three 1mg tablets for a total dose of 8mg Protonix (Pantoprazole Sodium) 40 Mg Tab 40 Mg PO DAILY Otrexup Inj (Methotrexate Inj) 25 Mg/0.4 Ml Inj 25 Mg IM WEEKLY [place] (Hydrocodone-Acetaminophen) 10-325 Mg Tab 1 Tab PO Q4H PRN Doxepin Liq (Doxepin HCl) 10 Mg/Ml Conc 0.6 Ml PO HS Soma (Carisoprodol) 350 Mg Tab 350 Mg PO QID PRN Vitamin D3 (Cholecalciferol) 5,000 Unit Tab 5,000 Units PO HS Alprazolam 0.5 Mg Tab 0.5 Mg PO Q6H PRN Review of Systems Except as stated in HPI: all other systems reviewed are Neg Physical Exam Narrative GENERAL: SKIN: Warm and dry. Patient has a surgical scar on the lateral aspect of the right hip. No obvious deformity noted. No erythema. Slightly tender to touch but no mass. HEAD: Atraumatic. Normocephalic. EYES: Pupils equal and round. No scleral icterus. No injection or drainage. ENT: No nasal bleeding or discharge. Mucous membranes pink and moist. Tongue is midline. No uvula deviation. NECK: Trachea midline. No JVD. CARDIOVASCULAR: Regular rate and rhythm. No murmurs, S3, S4. RESPIRATORY: No accessory muscle use. Clear to auscultation. Breath sounds equal bilaterally. GASTROINTESTINAL: Abdomen soft, non-tender, nondistended. Hepatic and splenic margins not palpable. MUSCULOSKELETAL: Extremities without clubbing, cyanosis, or edema. No obvious deformities. Full range of motion of the upper and lower extremities bilaterally. 2+ pulses bilaterally. NEUROLOGICAL: Awake and alert. No obvious cranial nerve deficits. Motor grossly within normal limits. Five out of 5 muscle strength in the arms and legs. Normal speech. PSYCHIATRIC: Appropriate mood and affect; insight and judgment normal. Data Data Last Documented VS Vital Signs Date Time Temp Pulse Resp B/P Pulse Ox O2 Delivery O2 Flow Rate FiO2 02/09/17 13:13 98.5 87 16 122/68 98 Room Air Orders Electrocardiogram (02/09/17 12:00) Complete Blood Count With Diff (02/09/17 12:00) Basic Metabolic Panel (Bmp) (02/09/17 12:00) Prothrombin Time / Inr (Pt) (02/09/17 12:00) Act Partial Throm Time (Ptt) (02/09/17 12:00) Blood Culture (02/09/17 12:00) C-Reactive Protein (Crp) (02/09/17 12:00) Urinalysis - C+S If Indicated (02/09/17 12:00) Magnesium (Mg) (02/09/17 12:00) Iv Access Insert/Monitor (02/09/17 12:00) Ecg Monitoring (02/09/17 12:00) Oximetry (02/09/17 12:00) Lactic Acid (02/09/17 12:00) Westergren Sedimentation Rate (02/09/17 12:18) Chest, Single Ap (02/09/17 ) Admit Order (Ed Use Only) (02/09/17 13:38) Labs Laboratory Tests Test 02/09/17 02/09/17 02/09/17 12:10 12:20 13:11 White Blood Count 6.4 TH/MM3 Red Blood Count 3.65 MIL/MM3 Hemoglobin 11.3 GM/DL Hematocrit 33.6 % Mean Corpuscular Volume 92.0 FL Mean Corpuscular Hemoglobin 30.8 PG Mean Corpuscular Hemoglobin 33.5 % Concent Red Cell Distribution Width 15.7 % Platelet Count 359 TH/MM3 Mean Platelet Volume 7.9 FL Neutrophils (%) (Auto) 74.4 % Lymphocytes (%) (Auto) 6.5 % Monocytes (%) (Auto) 9.2 % Eosinophils (%) (Auto) 9.4 % Basophils (%) (Auto) 0.5 % Neutrophils # (Auto) 4.8 TH/MM3 Lymphocytes # (Auto) 0.4 TH/MM3 Monocytes # (Auto) 0.6 TH/MM3 Eosinophils # (Auto) 0.6 TH/MM3 Basophils # (Auto) 0.0 TH/MM3 CBC Comment DIFF FINAL Differential Comment Erythrocyte Sedimentation Rate 55 mm/hr Prothrombin Time 18.1 SEC Prothromb Time International 1.6 RATIO Ratio Activated Partial 39.5 SEC Thromboplast Time Sodium Level 134 MEQ/L Potassium Level 3.0 MEQ/L Chloride Level 98 MEQ/L Carbon Dioxide Level 27.9 MEQ/L Anion Gap 8 MEQ/L Blood Urea Nitrogen 8 MG/DL Creatinine 0.47 MG/DL Random Glucose 97 MG/DL Calcium Level 8.3 MG/DL Magnesium Level 1.6 MG/DL C-Reactive Protein 19.60 MG/DL Lactic Acid Level 1.2 mmol/L Urine Color BROWN Urine Turbidity HAZY Urine pH 6.5 Urine Specific [place] 1.031 Urine Protein 30 mg/dL Urine Glucose (UA) NEG mg/dL Urine Ketones TRACE mg/dL Urine Occult Blood NEG Urine Nitrite NEG Urine Bilirubin NEG Urine Urobilinogen 4.0 MG/DL Urine Leukocyte Esterase TRACE Urine RBC 4 /hpf Urine WBC 4 /hpf Urine Squamous Epithelial 2 /hpf Cells Urine Bacteria RARE /hpf Urine Mucus FEW /lpf Microscopic Urinalysis Comment CULT NOT INDICATED MDM Medical Decision Making Medical Screen Exam Complete: Yes Emergency Medical Condition: Yes Medical Record Reviewed: Yes Interpretation(s) CBC & BMP Diagram 02/09/17 12:10 ESR of 55 CRP of 19 lactic acid WNL Differential Diagnosis Osteomyelitis versus fever versus hip pain versus sepsis Narrative Course 56-year-old female that presents to the ED for evaluation of fever and osteomyelitis. Patient was properly examined and was found to have signs and symptoms of unclear etiology at this time. Patient has a history of osteomyelitis and is being treated with IV antibiotics. A call was placed to Dr. Polanco. Labs and blood cultures were ordered. Labs and imaging showed elevated ESR and CRP. Case was discussed with Dr. Polanco over the phone who states that the ESR actually was better on Wednesday and apparently was around 20 now is 55. He recommends admission and consultation to Dr. Ariza patient's ID doctor as well as admission to medicine. This was discussed with the patient who is in agreement with admission. [facility] was contacted. Dr Luna agrees to admission. Diagnosis Primary Impression: Infection of right prosthetic hip joint Additional Impression: Osteomyelitis hip Admitting Information Admitting Physician Requests: Admit Ishan Ndiaye February 09, 2017 13:08
[2017-02-09 13:09] LABS: APTT (PATIENT) 39.5 SEC (24.3-30.1); INTERNATIONAL NORMALIZED RATIO 1.6 RATIO; PROTHROMBIN TIME - PATIENT 18.1 SEC (9.8-11.6)
[2017-02-09 13:13] LABS: ANION GAP 8 MEQ/L (5-15)
[2017-02-09 13:18] LABS: BICARBONATE 27.9 MEQ/L (21.0-32.0); BLOOD UREA NITROGEN 8 MG/DL (7-18); CHLORIDE 98 MEQ/L (98-107); MAGNESIUM 1.6 MG/DL (1.5-2.5); SODIUM (NA) 134 MEQ/L (136-145)
[2017-02-09 13:40] LABS: BACTERIA, URINE RARE /hpf; BLOOD, URINE NEG (NEG); COMMENT (UR) CULT NOT INDICATED; CULTURE IF INDICATED CULT NOT INDICATED; GLUCOSE,URINE NEG (NEG); KETONE, URINE TRACE mg/dL (NEG); MUCUS URINE FEW /lpf (OCC); NITRITE,URINE NEG (NEG); PH, URINE 6.5 (5.0-8.5); SQUAMOUS EPITHELIAL CELL URINE 2 /hpf (0-5)
[2017-02-09 13:41] LABS: URINE COLOR BROWN (YELLW/STRAW)
--- NOTE | 2017-02-09 14:00 | RADRPT ---
EXAM DATE/TIME: 02/09/2017 13:21 [facility] COMPARISON: CHEST SINGLE AP, December 17, 2015, 14:34. INDICATIONS : Fever for 1 week. MEDICAL HISTORY : Osteomyelitis. SURGICAL HISTORY : ORIF right hip. Infusaport. ENCOUNTER: Initial ACUITY: 1 week PAIN SCORE: 3/10 LOCATION: Bilateral chest FINDINGS: A single view of the chest demonstrates the lungs to be symmetrically aerated without evidence of mas s, infiltrate or effusion. Left-sided Arsmbz-j-[id number] catheter with tip in the cavoatrial junction. Th e cardiomediastinal contours are unremarkable. Osseous structures are intact. CONCLUSION: No acute disease. David Clark MD on February 09, 2017 at 13:57 Board Certified Radiologist. This report was verified electronically.
[2017-02-09] MEDS: NS + KCL 20 MEQ INJ 1,000 ML IV SCH (16:09)
[2017-02-09] MEDS: MORPHINE SULFATE 30 MG CONTROLLED RELEASE TAB PO SCH (16:09)
[2017-02-09] MEDS ORDERED: ACETAMINOPHEN 1000 MG/100 ML VIAL IV PRN (16:30)
--- NOTE | 2017-02-09 16:46 | HHI.HP ---
HPI Service [facility] Hospitalists Primary Care Physician Jose Luis Moore MD Admission Diagnosis right hip osteomyelitis, fever Chief Complaint: Right hip pain, fever Travel History International Travel<30 Days: No Contact w/Intl Traveler <30 Da: No Traveled to Known Affected Are: No History of Present Illness Ms. Brandt is a 56 y/o WF with autoimmune disease/Dermatomyositis previously on immunosuppressive therapy, who has been having issues more recently with right hip infection. 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 She then underwent revision right total hip replacement arthroplasty on 12/17/[address] Hoffmann. She developed pain and drainage from the surgical site and was admitted in 12/2016 and underwent debridement/irrigation of right hip total hip replacement with abx beads placement on 01/12/17 with retained infected prosthesis with Dr. Hoffmann. Pt was seen by ID at that time and was started on Rifampin and IV Cefazolin during that admission and this was continued for a recommended 6 week regimen. Patient reports that this past weekend on Wednesday she started having high fevers as high as 102. Per patient yesterday and the fever went as high as 103. Fever does improve with Tylenol or ibuprofen and currently she has no fever she did took some Tylenol earlier today. Per patient she contacted Dr. Polanco's office yesterday and they recommended that she comes to the ED but she at the time declined. She was able to keep down the fever and continue her medications and today her fever came back as high as 103 and she took a medication which brought it down but she contacted her doctor who told her to come here. She states that today she is having a little more pain on her right hip which feels like a burning but is unclear if this is because she slept wrong on it. Per patient she has no cough, congestion or runny nose. Per patient when she gets the fever she gets lost chills and sweats and sometimes she gets dry heaving. She reports that she has been drinking fluids well at home but has not been eating much of anything because any solid food tastes horrible to her since she has been on the antibiotics. She has been off all of her immunosuppressive medications for at least the last month. Review of Systems Constitutional: COMPLAINS OF: Diaphoretic episodes, Fever, Chills, Change in appetite Ears, nose, mouth, throat: DENIES: Throat pain, Running Nose, Sinus Pain Respiratory: DENIES: Cough, Sputum production, Shortness of breath Cardiovascular: COMPLAINS OF: Lower Extremity Edema (chronic), DENIES: Palpitations Gastrointestinal: DENIES: Abdominal pain, Diarrhea, Nausea, Vomiting Genitourinary: DENIES: Urinary frequency, Urgency, Hematuria, Dysuria Musculoskeletal: COMPLAINS OF: Joint pain, DENIES: Back pain Neurologic: DENIES: Headache, Localized weakness Psychiatric: DENIES: Confusion Past Family Social History Past Medical History 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 Hypothyroidism Osteoarthritis Lymphedema Spina bifida Morbid obesity Past Surgical History Debridement/irrigation of right hip total hip replacement with abx beads placement on 01/12/17 with retained infected prosthesis with Dr. Hoffmann Revision right total hip replacement arthroplasty on 12/17/[address] Hoffmann Aspiration of right hip and manipulation under anesthesia on 11/22/[address] Hoffmann Laparoscopic vertical sleeve gastrectomy on 06/05/[address] Calderon Revision left total hip replacement arthroplasty on 10/25/[address] Hoffmann Examination of left hip under anesthesia/aspiration on 10/14/[address] Hoffmann [place] resurfacing arthroplasty of right hip around 8-10 years ago Hysterectomy Fasciotomy of the foot TMJ surgery Reported Medications Rifampin 300 Mg Cap 300 Mg PO BID 40 Days Morphine ER (Morphine Sulfate) 60 Mg Tab 90 Mg PO Q8H Covaryx (Estrogens, Esterified-Methyltestosterone) 1.25-2.5 Mg Tab 1 Tab PO HS Synthroid (Levothyroxine Sodium) 88 Mcg Tab 88 Mcg PO DAILY Senna-S 8.6-50 mg (Sennosides-Docusate Sodium) 1 Tab Tab 1-3 Tab PO HS Protonix (Pantoprazole Sodium) 40 Mg Tab 40 Mg PO DAILY [place] (Hydrocodone-Acetaminophen) 10-325 Mg Tab 1 Tab PO Q4H PRN Soma (Carisoprodol) 350 Mg Tab 350 Mg PO QID PRN Vitamin D3 (Cholecalciferol) 5,000 Unit Tab 5,000 Units PO HS Alprazolam 0.5 Mg Tab 0.5 Mg PO Q6H PRN Allergies: Coded Allergies: No Known Allergies (Unverified , 02/09/17) Family History Mother with hx of HTN Brother with hx of psoriasis Social History Denies any alcohol, tobacco or illicit drug use Physical Exam Vital Signs Vital Signs Date Time Temp Pulse Resp B/P Pulse Ox O2 Delivery O2 Flow Rate FiO2 02/09/17 16:12 98.6 86 17 130/71 98 Room Air 02/09/17 14:27 99.0 76 17 132/62 98 Room Air 02/09/17 13:13 98.5 87 16 122/68 98 Room Air 02/09/17 12:05 83 17 97 Room Air 02/09/17 12:05 17 98 Room Air 02/09/17 11:50 98.3 100 18 127/69 100 Room Air Physical Exam GENERAL: This is a well-nourished, well-developed patient, in no apparent distress. SKIN: No rashes, ecchymoses or lesions. Cool and dry. HEENT: Atraumatic. Normocephalic. No temporal or scalp tenderness. No scleral icterus. Airway patent. NECK: Trachea midline, supple, nontender. CARDIO: Regular. RESP: CTA bilaterally. No wheezes, rales, or rhonchi. ABD: +BS, soft, non-tender, nondistended. EXT: Right hip incision is healed well, some mild tenderness over the incision with palpation. Bilateral LE edema (improved per the pt) and some red skin changes on bilateral LE and UE NEURO: Awake and alert. Motor and sensory grossly within normal limits. Normal speech. Laboratory Laboratory Tests Test 02/09/17 02/09/17 02/09/17 12:10 12:20 13:11 White Blood Count 6.4 Red Blood Count 3.65 Hemoglobin 11.3 Hematocrit 33.6 Mean Corpuscular Volume 92.0 Mean Corpuscular Hemoglobin 30.8 Mean Corpuscular Hemoglobin 33.5 Concent Red Cell Distribution Width 15.7 Platelet Count 359 Mean Platelet Volume 7.9 Neutrophils (%) (Auto) 74.4 Lymphocytes (%) (Auto) 6.5 Monocytes (%) (Auto) 9.2 Eosinophils (%) (Auto) 9.4 Basophils (%) (Auto) 0.5 Neutrophils # (Auto) 4.8 Lymphocytes # (Auto) 0.4 Monocytes # (Auto) 0.6 Eosinophils # (Auto) 0.6 Basophils # (Auto) 0.0 CBC Comment DIFF FINAL Differential Comment Erythrocyte Sedimentation Rate 55 Prothrombin Time 18.1 Prothromb Time International 1.6 Ratio Activated Partial 39.5 Thromboplast Time Sodium Level 134 Potassium Level 3.0 Chloride Level 98 Carbon Dioxide Level 27.9 Anion Gap 8 Blood Urea Nitrogen 8 Creatinine 0.47 Random Glucose 97 Calcium Level 8.3 Magnesium Level 1.6 C-Reactive Protein 19.60 Lactic Acid Level 1.2 Urine Color BROWN Urine Turbidity HAZY Urine pH 6.5 Urine Specific [place] 1.031 Urine Protein 30 Urine Glucose (UA) NEG Urine Ketones TRACE Urine Occult Blood NEG Urine Nitrite NEG Urine Bilirubin NEG Urine Urobilinogen 4.0 Urine Leukocyte Esterase TRACE Urine RBC 4 Urine WBC 4 Urine Squamous Epithelial 2 Cells Urine Bacteria RARE Urine Mucus FEW Microscopic Urinalysis Comment CULT NOT INDICATED Date/Time Procedure Status Source Growth 02/09/17 12:20 Aerobic Blood Culture Received Blood Peripheral Pending 02/09/17 12:20 Anaerobic Blood Culture Received Blood Peripheral Pending Result Diagram: 02/09/17 1210 02/09/17 1210 Imaging Last Impressions Chest X-Ray 02/09/17 0000 Signed Impressions: Service Date/Time: Thursday, February 09, 2017 13:21 - CONCLUSION: No acute disease. David Clark MD Septic Shock Reassessment Heart: Regular rate and rhythm Lungs: Clear Skin: Warm Assessment and Plan Problem List: (1) Infection of right prosthetic hip joint Status: Chronic Plan: - Pt is a 56 y/o WF with autoimmune disease/Dermatomyositis previously on immunosuppressive therapy, who has been having issues more recently with right hip infection. 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 She then underwent revision right total hip replacement arthroplasty on 12/17/[address] Hoffmann and subsequently developed pain and drainage from the surgical site and was admitted in 12/2016 and underwent debridement/ irrigation of right hip total hip replacement with abx beads placement on 01/12/17 with retained infected prosthesis with Dr. Hoffmann. Pt was seen by ID at that time and was started on Rifampin and IV Cefazolin during that admission and this was continued for a recommended 6 week regimen. - Patient reports that this past weekend on Wednesday she started having high fevers as high as 102-103 degrees. - Pt was recommended to return to the ED and had been previously planned for surgical intervention later this week. - Consult Dr. Hoffmann - Consult infectious disease - Blood cultures were drawn in the ED - I will continue her previous Abx regimen of Cefazolin 2gram Q8H and Rifampin until evaluated by ID - Tylenol PRN for fevers - Cont. home pain medication regimen. - Pt reports that she had stopped her Xarelto in anticipation for upcoming surgery - Monitor labs and clinical status - IVF - Supportive care - DVT prophylaxis with SCDs (2) Fever Status: Acute Plan: - See above. (3) Dermatomyositis Status: Chronic Plan: - Pt has been off all immunosuppression medications for at least the last month (4) Hypothyroidism Status: Chronic Plan: - Cont. home meds Assessment and Plan Patient examined. Assessment and plan formulated with Evelin Sunshine PA-C. I agree with the above. right prosthetic hip infection with mssa. pt with recent debridement and abx beads. has been getting iv cefazolin/rifampin. stopped her immunosuppressive drugs and totally of for about 4 weeks. has had some rash over legs/arms since. but high fevers and pt admitted and ortho planning further debridement of this hip. reconsult ID. Physician Certification 2 Midnight Certification Type: Admission for Inpatient Services Order for Inpatient Services The services are ordered in accordance with Medicare regulations or non- Medicare payer requirements, as applicable. In the case of services not specified as inpatient-only, they are appropriately provided as inpatient services in accordance with the 2-midnight benchmark. Estimated LOS (days): 4 4 days is the estimated time the patient will need to remain in the hospital, assuming treatment plan goals are met and no additional complications. Post-Hospital Plan: Not yet determined Evelin Sunshine February 09, 2017 16:46 Ronnie Babin MD February 09, 2017 22:06
[2017-02-09] MEDS: ACETAMINOPHEN 325 MG TAB PO PRN (16:58)
[2017-02-09] MEDS: ceFAZolin 2 GM PREMIX 50 ML IV SCH (18:36)
[2017-02-09] MEDS: RIFAMPIN 150 MG CAP PO SCH (19:44)
[2017-02-09] MEDS: ONDANSETRON HCL 4 MG/2 ML VIAL IV PRN (19:44)
[2017-02-09] MEDS: DOCUSATE SODIUM 50 MG/SENNA 8.6 MG TAB PO SCH (19:44)
[2017-02-09] MEDS ORDERED: RIFAMPIN 300 MG PO SCH (21:00)
[2017-02-09] MEDS: ACETAMINOPHEN/HYDROcodone 325 MG/10 MG TAB PO PRN (21:58)
[2017-02-10] VITALS: BP 121/57; PULSE 92; RESP 20; TEMP 99.9; O2SAT 96
[2017-02-10] MEDS: ceFAZolin 2 GM PREMIX 50 ML IV SCH ×3 (01:43→18:11)
[2017-02-10] MEDS: MORPHINE SULFATE 30 MG CONTROLLED RELEASE TAB PO SCH ×3 (01:46→18:11)
[2017-02-10] MEDS: NS + KCL 20 MEQ INJ 1,000 ML IV SCH ×3 (01:47→23:27)
[2017-02-10] MEDS: ONDANSETRON HCL 4 MG/2 ML VIAL IV PRN ×3 (02:42→19:41)
[2017-02-10] MEDS: ACETAMINOPHEN/HYDROcodone 325 MG/10 MG TAB PO PRN ×4 (03:18→23:27)
[2017-02-10] MEDS: LEVOTHYROXINE SODIUM 88 MCG TAB PO SCH (05:32)
[2017-02-10 06:06] LABS: BICARBONATE 27.3 MEQ/L (21.0-32.0); MAGNESIUM 1.6 MG/DL (1.5-2.5)
[2017-02-10 08:00] VITALS: BP 123/62; PULSE 83; RESP 18; TEMP 98.7; O2SAT 98
[2017-02-10] MEDS: RIFAMPIN 150 MG CAP PO SCH ×2 (09:25→20:50)
[2017-02-10] MEDS: PANTOPRAZOLE SOD 40 MG DELAYED RELEASE TAB PO SCH (09:25)
[2017-02-10] MEDS: CARISOPRODOL 350 MG TAB PO PRN ×2 (10:16→16:20)
[2017-02-10] MEDS ORDERED: FLUCONAZOLE 100 MG TAB PO ONE (10:30)
[2017-02-10] MEDS ORDERED: PILL SPLITTER OTHER PRN (10:30)
[2017-02-10] MEDS ORDERED: PHYTONADIONE 5 MG TAB PO ONE (10:30)
--- NOTE | 2017-02-10 10:33 | MB ---
cc: SAWYER ARTEAGA DATE OF CONSULTATION 02/09/2017 REASON FOR CONSULTATION Evaluation of the right hip. HISTORY This patient is a 56-year-old female with a known history of autoimmune disease and dermatomyositis. The patient has been on immunosuppressive therapy. The patient came to a right hip [place] resurfacing arthroplasty many years ago by Dr. Nye in [place]. The patient also had surgery on her left hip by the same physician. Her left hip was complicated by multiple dislocations. She came under my care initially about four or five years ago. At that time, she had a revision of the left hip with exchange of the liner and did well. She has had one dislocation since that time, but has functioned well. The [place] hip resurfacing showed evidence of significant wear and came to revision hip arthroplasty just over a year ago. At the time of her surgery, it was noted she had significant metallosis in the right hip joint with significant loss of muscle function of the right hip related to complete detachment of the psoas muscle, complete detachment of the gluteus minimus and partial detachment of the gluteus medius. The patient's postoperative course was complicated by multiple dislocations. Her components appeared to be well-positioned and settled and she came to revision by the undersigned earlier this year. The patient had revision to a constrained liner. After surgery, she was noted to have some redness that developed and a deep infection that developed with Streptococcus bacteria. Approximately four to five weeks ago, she came to irrigation and debridement of skin, subcutaneous tissue, muscle and bone with placement of antibiotic spacers. The patient has been on IV and oral antibiotics since that time. She called over the weekend indicated she had fevers. The day before admission, she had a fever as high as 103. Examination of the right hip does show some mild swelling, but the wound looked completely benign. She presented to the emergency room for evaluation. At that time, she was found to be afebrile. Because of concerns of an elevated sedimentation rate which have been normal a week before, she is admitted to the hospital. We are anticipating the possibility of surgical treatment with revision and irrigation and debridement and possible removal of hip components and placement of an antibiotic spacer. I have been asked to see her in consultation regarding the same. REVIEW OF SYSTEMS CONSTITUTIONAL: Complains of diaphoretic episodes, fever and chills with change in appetite. EARS, NOSE, AND THROAT: Unremarkable. RESPIRATORY: Unremarkable. CARDIOVASCULAR: Complains of lower extremity edema which is chronic. Denies palpitations. GASTROINTESTINAL: Unremarkable. GENITOURINARY: Unremarkable. MUSCULOSKELETAL: Right hip pain, otherwise no significant left hip pain. Denies low back pain. NEUROLOGIC: Denies headache. No localized weakness. PSYCHIATRIC: Denies confusion. PAST MEDICAL HISTORY Significant for: 1. Right hip replacement surgery multiple times 2. Left hip replacement surgery multiple times 3. Inflammatory polyarthropathy 4. Dermatomyositis 5. Hypothyroid disease 6. Osteoarthritis 7. Lymphedema 8. Spina bifida 9. Morbid obesity PAST SURGICAL HISTORY 1. Debridement and irrigation of the right total hip with antibiotic beads 01/12/17. 2. Revision right total replacement arthroplasty 12/17/2015. 3. Aspiration right hip and manipulation under anesthesia 11/22/2015 4. Laparoscopic gastrectomy 06/05/2015 Dr. Alvarado. 5. Revision of left total hip replacement arthroplasty 10/25/2012. 6. Examination of the left hip under anesthesia and aspiration 10/14/12. 7. [place] hip resurfacing arthroplasty of the right hip ten years ago 8. Hysterectomy 9. Fasciectomy of the foot 10. TMJ surgery. MEDICATIONS ON ADMISSION 1. Rifampin 300 mg b.i.d. 2. Morphine sulfate 3. Covaryx 4. Synthroid 5. Senna 6. Protonix 7. Branch for breakthrough pain. 8. Soma 9. Vitamin D 10. Alprazolam ALLERGIES None that are known. FAMILY HISTORY Mother had a family history of hypertension, brother with psoriasis. SOCIAL HISTORY Denies alcohol, tobacco or illicit drug use. PHYSICAL EXAMINATION Overweight, pleasant, anxious white female. She is lying in bed fairly comfortable. HEENT: Normocephalic, atraumatic. Pupils equal round react to light accommodation. Extraocular motions intact. NECK: Supple. CHEST: Clear. HEART: Regular rate and rhythm. ABDOMEN: Soft and nontender, normoactive bowel sounds. MUSCULOSKELETAL: Right hip well-healed incision. Some tenderness over the incision. Mild swelling, bilateral lower extremity edema, 1+ minimal red skin changes. No obvious cellulitis. NEUROLOGIC: Examination is within normal limits. LABORATORY DATA Shows a white blood cell count 6.4 with mild increased neutrophils at 74%. PT/INR 1.6, PTT 39.5. Urine shows protein, trace ketones, 4 WBC's, 4 RBC's, rare bacteria, few mucus threads. Cultures is not indicated. Blood cultures are pending. Chest x-ray is shows no occult disease. 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 Continue workup and evaluation by infectious disease and medical physician. She presently is on Rifampin and cefazolin. She has not completed treatment, but she is having what appears to the breakthrough possibility of breakthrough infection. 2. Anticipate surgical treatment on . If there is evidence of a deep infection, consider removal of the hip components at that time and placement of a temporary antibiotic spacer appropriate for the organism that was isolated. 3. We will follow with you and anticipate surgical treatment on pending further evaluation. MD MESSI Garcia/YULISA /9:34 AM /10:09 AM
--- NOTE | 2017-02-10 11:07 | EKG ---
Date Performed: 02/09/2017 Time Performed: 12:27:45 PTAGE: 56 years EKG: Sinus rhythm NORMAL ECG PREVIOUS TRACING : 01/12/2017 12.04 DOCTOR: Driss Zhu Interpretating Date/Time 02/10/2017 11:06:05
--- NOTE | 2017-02-10 11:09 | HHI.PR ---
Subjective Remarks Pt reports that she feels like she has a vaginal yeast infection She reports that this happened previously during treatment with the antibiotics and the topical medication didn't help and she had to take a dose of Diflucan which did resolve the symptoms. Pt reports that her pain is tolerable at this time. She did run a fever overnight with Tmax 101.7 Objective Vitals Vital Signs Date Time Temp Pulse Resp B/P Pulse Ox O2 Delivery O2 Flow Rate FiO2 02/10/17 08:00 98.7 83 18 123/62 98 02/10/17 00:00 99.9 92 20 121/57 96 02/09/17 20:00 98.8 85 18 107/53 98 02/09/17 17:03 101.7 104 17 143/72 100 02/09/17 16:12 98.6 86 17 130/71 98 Room Air 02/09/17 14:27 99.0 76 17 132/62 98 Room Air 02/09/17 13:13 98.5 87 16 122/68 98 Room Air 02/09/17 12:05 83 17 97 Room Air 02/09/17 12:05 17 98 Room Air 02/09/17 11:50 98.3 100 18 127/69 100 Room Air 02/09/17 02/09/17 02/10/17 15:00 23:00 07:00 Intake Total 200 ml 810 ml 1109 ml Output Total 750 ml Balance 200 ml 60 ml 1109 ml Intake Oral 200 ml 240 ml 360 ml IV Total 570 ml 749 ml Output Urine Total 750 ml # Voids 1 1 3 # Bowel Movements 0 0 0 Result Diagram: 02/09/17 1210 02/10/17 0429 Other Results Laboratory Tests Test 02/09/17 02/09/17 02/09/17 02/10/17 12:10 12:20 13:11 04:29 White Blood Count 6.4 TH/MM3 Red Blood Count 3.65 MIL/MM3 Hemoglobin 11.3 GM/DL Hematocrit 33.6 % Mean Corpuscular Volume 92.0 FL Mean Corpuscular Hemoglobin 30.8 PG Mean Corpuscular Hemoglobin 33.5 % Concent Red Cell Distribution Width 15.7 % Platelet Count 359 TH/MM3 Mean Platelet Volume 7.9 FL Neutrophils (%) (Auto) 74.4 % Lymphocytes (%) (Auto) 6.5 % Monocytes (%) (Auto) 9.2 % Eosinophils (%) (Auto) 9.4 % Basophils (%) (Auto) 0.5 % Neutrophils # (Auto) 4.8 TH/MM3 Lymphocytes # (Auto) 0.4 TH/MM3 Monocytes # (Auto) 0.6 TH/MM3 Eosinophils # (Auto) 0.6 TH/MM3 Basophils # (Auto) 0.0 TH/MM3 CBC Comment DIFF FINAL Differential Comment Erythrocyte Sedimentation Rate 55 mm/hr Prothrombin Time 18.1 SEC Prothromb Time International 1.6 RATIO Ratio Activated Partial 39.5 SEC Thromboplast Time Sodium Level 134 MEQ/L 137 MEQ/L Potassium Level 3.0 MEQ/L 3.0 MEQ/L Chloride Level 98 MEQ/L 100 MEQ/L Carbon Dioxide Level 27.9 MEQ/L 27.3 MEQ/L Anion Gap 8 MEQ/L 10 MEQ/L Blood Urea Nitrogen 8 MG/DL 5 MG/DL Creatinine 0.47 MG/DL 0.40 MG/DL Random Glucose 97 MG/DL 135 MG/DL Calcium Level 8.3 MG/DL 8.0 MG/DL Magnesium Level 1.6 MG/DL 1.6 MG/DL C-Reactive Protein 19.60 MG/DL Lactic Acid Level 1.2 mmol/L Urine Color BROWN Urine Turbidity HAZY Urine pH 6.5 Urine Specific [place] 1.031 Urine Protein 30 mg/dL Urine Glucose (UA) NEG mg/dL Urine Ketones TRACE mg/dL Urine Occult Blood NEG Urine Nitrite NEG Urine Bilirubin NEG Urine Urobilinogen 4.0 MG/DL Urine Leukocyte Esterase TRACE Urine RBC 4 /hpf Urine WBC 4 /hpf Urine Squamous Epithelial 2 /hpf Cells Urine Bacteria RARE /hpf Urine Mucus FEW /lpf Microscopic Urinalysis Comment CULT NOT INDICATED Estimat Glomerular Filtration 165 ML/MIN Rate Imaging Last Impressions Chest X-Ray 02/09/17 0000 Signed Impressions: Service Date/Time: Thursday, February 09, 2017 13:21 - CONCLUSION: No acute disease. David Clark MD Objective Remarks General: NAD, AAOx3 Chest: CTA Cardiac: Regular Abd: +BS, soft ND/NT Ext: Bilateral LE edema, slightly increased from baseline. 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 - Pt had previous [place] hip resurfacing of the right hip several years ago and had developed malfunctioning right total hip arthroplasty and chronic dislocating of the right hip replacement. She then underwent revision right total hip replacement arthroplasty on 12/17/[address] Hoffmann and subsequently developed pain and drainage from the surgical site and was admitted in 12/2016 and underwent debridement/ irrigation of right hip total hip replacement with abx beads placement on 01/12/17 with retained infected prosthesis with Dr. Hoffmann. Pt was seen by ID at that time and was started on Rifampin and IV Cefazolin during that admission and this was continued for a recommended 6 week regimen. - Patient reports that this past weekend on Wednesday she started having high fevers as high as 102-103 degrees. - Pt was recommended to return to the ED and had been previously planned for surgical intervention later this week. - Pt reports that Dr. Hoffmann is planning for surgery on . - Await Infectious disease consult. - Blood cultures are pending. - Continue her previous Abx regimen of Cefazolin 2gram Q8H and Rifampin until evaluated by ID - Tylenol PRN for fevers - Cont. home pain medication regimen. - Pt reports that she had stopped her Xarelto prior to admission in anticipation for upcoming surgery - Monitor labs and clinical status - IVF - Supportive care - DVT prophylaxis with SCDs (2) Fever Status: Acute Plan: - See above. (3) Dermatomyositis Status: Chronic Plan: - Pt has been off all immunosuppression medications for at least the last month (4) Hypothyroidism Status: Chronic Plan: - Cont. home meds Assessment and Plan Patient examined. Assessment and plan formulated with Evelin Sunshine PA-C. I agree with the above. going for right hip surgery tomorrow. vit k ordered. cont current abx. ID consult. discussed with Dr. Hoffmann. Evelin Sunshine February 10, 2017 11:09 Ronnie Babin MD February 10, 2017 15:01
[2017-02-10] MEDS: POTASSIUM CHLORIDE 10 MEQ CAP PO SCH ×2 (11:58→16:20)
[2017-02-10 12:00] VITALS: BP 116/61; PULSE 84; RESP 18; TEMP 98.3; O2SAT 99
[2017-02-10 16:00] VITALS: BP 148/71; PULSE 108; RESP 20; TEMP 99.3; O2SAT 96
--- NOTE | 2017-02-10 16:31 | PD.ID.CON ---
History of Present Illness Service ID Consult Requested By Dr Ronni Polanco Reason for Consult fever, R prosthetic hip infx Primary Care Physician Jose Luis Moore MD Diagnoses: History of Present Illness Patient is known to me from her previous recent hospitalization for R prosthetic hip infection Pt is a 56-year-old female who had a previous [place] hip resurfacing of the right hip. She evelopped malfunctioning right total hip replacement arthroplasty and chronic dislocating right total hip replacement arthroplasty She is sp Revision right total hip replacement arthroplasty, constrained liner on December 08, [address] Ronni Hoffmann She developped drainage from the incision ptractically sinmce the surgery, and grew MSSA from the wound She was not on abx prior to admission On January 12 she underwent debridement of her R hip and operative clx showed viridans streptococci She was discharged on cefazoline IV + rifampin and she noticed low grade fevers in the last 2 weeks She spiked temps to 103 F yday and she went to ER for this problem She thinks her R hip pain is better, her incision has complertely closed and swelling and imnduration arounfd it improved She also co poor appetite She is off her immunosuppressive medx that she was taking for her dermatomyosistis and her rash keep getting worse Since admission she had low grade temps up to 101 Review of Systems Constitutional: COMPLAINS OF: Diaphoretic episodes, Fever, Change in appetite ( decreased) Musculoskeletal: COMPLAINS OF: Joint pain, Muscle aches Integumentary: COMPLAINS OF: Rash Except as stated in HPI: all other systems reviewed are Neg Past Family Social History Allergies: Coded Allergies: No Known Allergies (Unverified , 02/09/17) Past Medical History dermatomyosytis, previously on Rituxan and sterroids, now off Past Surgical History multple b/l hip surgeries (total of 5) Active Ordered Medications Medications where reviewed in EMR Antibiotics Include: cefazoline rifampin Family History Non-Contributory. Social History No Tobacco. No ETOH. No Illicit Drugs. Physical Exam Vital Signs Vital Signs Date Time Temp Pulse Resp B/P Pulse Ox O2 Delivery O2 Flow Rate FiO2 02/10/17 12:00 98.3 84 18 116/61 99 02/10/17 08:00 98.7 83 18 123/62 98 02/10/17 00:00 99.9 92 20 121/57 96 02/09/17 20:00 98.8 85 18 107/53 98 02/09/17 17:03 101.7 104 17 143/72 100 02/09/17 16:12 98.6 86 17 130/71 98 Room Air Physical Exam CONSTITUTIONAL/GENERAL: This is an adequately nourished patient, in no distress TUBES/LINES/DRAINS: PORT in place L chest, site looks OK SKIN: No jaundice, Erythematous rashe on face, chest - looks much worse sice last admission HEAD: Atraumatic. Normocephalic. EYES: Pupils equal and round and reactive. Extraocular motions intact. No scleral icterus. No injection or drainage. Fundi not examined. ENT: Hearing grossly normal. Nose without bleeding or purulent drainage. Oral mucosae without visible erythema, exudates, masses, or lesions. NECK: Trachea midline. Supple, nontender. CARDIOVASCULAR: Regular rate and rhythm without murmurs, gallops, or rubs. No JVD. Peripheral pulses symmetric. RESPIRATORY/CHEST: Symmetric, unlabored respirations. Clear to auscultation. Breath sounds equal bilaterally. No wheezes, rales, or rhonchi. GASTROINTESTINAL: Abdomen soft, non-tender, nondistended. No hepato-splenomegaly , or palpable masses. No guarding. Bowel sounds present. GENITOURINARY: Without palpable bladder distension. MUSCULOSKELETAL: Extremities without clubbing, cyanosis, or edema. No mottling or clubbing. R hip incision is completetly healed + mild edema nad induration around , but no fluctuance and/or erythema, not hot to touch no tenderness LYMPHATICS: No palpable cervical or supraclavicular adenopathy. NEUROLOGICAL: Awake and alert. Motor and sensory grossly within normal limits. Follows commands. Normal speech. Moves all extremities. PSYCHIATRIC: No obvious anxiety/depression. no apparent hallucinations or other psychotic thought process. Laboratory Laboratory Tests Test 02/10/17 04:29 Sodium Level 137 Potassium Level 3.0 Chloride Level 100 Carbon Dioxide Level 27.3 Anion Gap 10 Blood Urea Nitrogen 5 Creatinine 0.40 Estimat Glomerular Filtration 165 Rate Random Glucose 135 Calcium Level 8.0 Magnesium Level 1.6 Date/Time Procedure Status Source Growth 02/09/17 12:20 Aerobic Blood Culture - Preliminary Resulted Blood Peripheral NO GROWTH IN 1 DAY 02/09/17 12:20 Anaerobic Blood Culture - Preliminary Resulted Blood Peripheral NO GROWTH IN 1 DAY Result Diagram: 02/09/17 1210 02/10/17 0429 Imaging Last Impressions Chest X-Ray 02/09/17 0000 Signed Impressions: Service Date/Time: Thursday, February 09, 2017 13:21 - CONCLUSION: No acute disease. David Clark MD Assessment and Plan Assessment and Plan R prosthetic hip infx, MSSA and viridans strep sp revision in November sp debridement with abx beads placement today 01/12 with retained infected prosthesis Dermatomyosystis, off all immunosuppresants Rituxan (on hold since Sep), prednisone, MTX New fever - source? - it is possiblre that her hip infx is the source of the fever however her hip incision is quite healed and she reports inmproving of the pain; other sourcecs of her fever could be PORT infx and also flare up of her connective tissue disorder - her CRP has nearly tripled but that could be also 2/2 flare up of CTD in the abscence of immunosuppression - cont cefazoline x 6 wks -cont rifampin - chk LFTs - r/o flare up of her dermatomyositis - fu blood clx - procalcitonin - MRI of R hip Discussed Condition With Dr Chad Polanco over the phone Nga Ariza MD February 10, 2017 16:30
[2017-02-10 20:00] VITALS: BP 126/59; PULSE 87; RESP 18; TEMP 99.3; O2SAT 97
[2017-02-10] MEDS ORDERED: GADODIAMIDE PF 287 MG/ML 5 ML VIAL (for RAD MRI) IV ONE (20:34)
[2017-02-10] MEDS: DOCUSATE SODIUM 50 MG/SENNA 8.6 MG TAB PO SCH (20:50)
--- NOTE | 2017-02-10 21:39 | RADRPT ---
EXAM DATE/TIME: 02/10/2017 19:58 [facility] COMPARISON: HIP RIGHT (AP&LAT 2/3VWS) WO AP PELVIS, January 12, 2017, 16:53. INDICATIONS : Abscess. Right hip pain. CONTRAST: 16 cc Omniscan (gadodiamide) IV MEDICAL HISTORY : None. SURGICAL HISTORY : Hysterectomy. Gastric bypass. Left hip replacement x2. Right hip replacement x3. ENCOUNTER: Subsequent ACUITY: 1 month PAIN SCORE: 6/10 LOCATION: Right hip. TECHNIQUE: Multiplanar, multisequence MRI examination was performed without contrast and after the intravenous a dministration of gadolinium. FINDINGS: Bilateral hip arthroplasties are present with antibiotic beads surrounding the right hip prosthesis. A pseudocapsule is present with joint effusion. A small joint effusion is present on the left. There is no findings of myositis or abscess. A fluid-filled bursa is present superficial to the pseudocapsu le. Following the administration of contrast no abnormal enhancement is identified. CONCLUSION: 1. Bilateral hip arthroplasties with pseudocapsule larger on the right than on the left. There are no findings to suggest abscess. 2. The pseudocapsule could be aspirated if clinically indicated Arvin Pimentel MD on February 10, 2017 at 21:08 Board Certified Radiologist. This report was verified electronically.
[2017-02-10 22:29] LABS: INDIRECT BILIRUBIN 0.1 MG/DL (0.0-0.8); TOTAL BILIRUBIN ADULT 0.2 MG/DL (0.2-1.0)
[2017-02-10 23:50] VITALS: BP 148/72; PULSE 82; RESP 18; TEMP 99; O2SAT 96
[2017-02-11] MEDS: ceFAZolin 2 GM PREMIX 50 ML IV SCH ×2 (01:00→09:54)
[2017-02-11] MEDS: MORPHINE SULFATE 30 MG CONTROLLED RELEASE TAB PO SCH ×3 (01:00→17:00)
[2017-02-11] MEDS: LEVOTHYROXINE SODIUM 88 MCG TAB PO SCH (04:59)
[2017-02-11] MEDS: ACETAMINOPHEN/HYDROcodone 325 MG/10 MG TAB PO PRN ×3 (06:04→23:11)
[2017-02-11 06:51] LABS: INTERNATIONAL NORMALIZED RATIO 1.1 RATIO
[2017-02-11 06:57] LABS: AUTOMATED NEUTROPHIL # 4.7 TH/MM3 (1.8-7.7); BASOPHIL % 0.4 % (0.0-2.0); EOSINOPHIL # 0.9 TH/MM3 (0-0.4); EOSINOPHIL % 13.1 % (0.0-4.0); HEMATOCRIT 33.5 % (35.0-46.0); HEMO FLAGS DIFF FINAL; LYMPH % 9.8 % (9.0-44.0); LYMPHOCYTE # 0.7 TH/MM3 (1.0-4.8); MEAN CELL VOLUME 91.9 FL (80.0-100.0); MEAN CORPUSCULAR HEMOGLOBIN 30.7 PG (27.0-34.0); MEAN CORPUSCULAR HGB CONC 33.5 % (32.0-36.0); MONO % 10.9 % (0.0-8.0); NEUT % 65.8 % (16.0-70.0); PLATELET COUNT 407 TH/MM3 (150-450); RED BLOOD COUNT 3.65 MIL/MM3 (4.00-5.30); WHITE BLOOD COUNT 7.2 TH/MM3 (4.0-11.0)
[2017-02-11 07:17] LABS: BICARBONATE 29.5 MEQ/L (21.0-32.0); MAGNESIUM 1.9 MG/DL (1.5-2.5); POTASSIUM 3.9 MEQ/L (3.5-5.1)
[2017-02-11] MEDS ORDERED: ROPIVACAINE 0.5% PF INJ 30 ML VIAL NERV BLOCK ONE (07:40)
[2017-02-11 08:00] VITALS: BP 123/59; PULSE 94; RESP 18; TEMP 99; O2SAT 96
--- NOTE | 2017-02-11 09:26 | HHI.PR ---
Subjective Remarks Pt tentatively planned for surgery this afternoon. Low grade temps overnight. No new complaints. Objective Vitals Vital Signs Date Time Temp Pulse Resp B/P Pulse Ox O2 Delivery O2 Flow Rate FiO2 02/11/17 08:00 99.0 94 18 123/59 96 02/10/17 23:50 99.0 82 18 148/72 96 02/10/17 20:00 99.3 87 18 126/59 97 02/10/17 16:00 99.3 108 20 148/71 96 02/10/17 12:00 98.3 84 18 116/61 99 02/10/17 02/10/17 02/11/17 15:00 23:00 07:00 Intake Total 1200 ml 1564 ml 750 ml Output Total 1750 ml 1600 ml 1400 ml Balance -550 ml -36 ml -650 ml Intake Oral 1200 ml 480 ml IV Total 1084 ml 750 ml Output Urine Total 1750 ml 1600 ml 1400 ml # Bowel Movements 1 Result Diagram: 02/11/17 0556 02/11/17 0556 Other Results Laboratory Tests Test 02/09/17 02/09/17 02/09/17 02/10/17 12:10 12:20 13:11 04:29 White Blood Count 6.4 TH/MM3 Red Blood Count 3.65 MIL/MM3 Hemoglobin 11.3 GM/DL Hematocrit 33.6 % Mean Corpuscular Volume 92.0 FL Mean Corpuscular Hemoglobin 30.8 PG Mean Corpuscular Hemoglobin 33.5 % Concent Red Cell Distribution Width 15.7 % Platelet Count 359 TH/MM3 Mean Platelet Volume 7.9 FL Neutrophils (%) (Auto) 74.4 % Lymphocytes (%) (Auto) 6.5 % Monocytes (%) (Auto) 9.2 % Eosinophils (%) (Auto) 9.4 % Basophils (%) (Auto) 0.5 % Neutrophils # (Auto) 4.8 TH/MM3 Lymphocytes # (Auto) 0.4 TH/MM3 Monocytes # (Auto) 0.6 TH/MM3 Eosinophils # (Auto) 0.6 TH/MM3 Basophils # (Auto) 0.0 TH/MM3 CBC Comment DIFF FINAL Differential Comment Erythrocyte Sedimentation Rate 55 mm/hr Prothrombin Time 18.1 SEC Prothromb Time International 1.6 RATIO Ratio Activated Partial 39.5 SEC Thromboplast Time Sodium Level 134 MEQ/L 137 MEQ/L Potassium Level 3.0 MEQ/L 3.0 MEQ/L Chloride Level 98 MEQ/L 100 MEQ/L Carbon Dioxide Level 27.9 MEQ/L 27.3 MEQ/L Anion Gap 8 MEQ/L 10 MEQ/L Blood Urea Nitrogen 8 MG/DL 5 MG/DL Creatinine 0.47 MG/DL 0.40 MG/DL Random Glucose 97 MG/DL 135 MG/DL Calcium Level 8.3 MG/DL 8.0 MG/DL Magnesium Level 1.6 MG/DL 1.6 MG/DL C-Reactive Protein 19.60 MG/DL Lactic Acid Level 1.2 mmol/L Urine Color BROWN Urine Turbidity HAZY Urine pH 6.5 Urine Specific [place] 1.031 Urine Protein 30 mg/dL Urine Glucose (UA) NEG mg/dL Urine Ketones TRACE mg/dL Urine Occult Blood NEG Urine Nitrite NEG Urine Bilirubin NEG Urine Urobilinogen 4.0 MG/DL Urine Leukocyte Esterase TRACE Urine RBC 4 /hpf Urine WBC 4 /hpf Urine Squamous Epithelial 2 /hpf Cells Urine Bacteria RARE /hpf Urine Mucus FEW /lpf Microscopic Urinalysis Comment CULT NOT INDICATED Estimat Glomerular Filtration 165 ML/MIN Rate Test 02/10/17 02/11/17 21:07 05:56 Total Bilirubin 0.2 MG/DL Direct Bilirubin 0.1 MG/DL Indirect Bilirubin 0.1 MG/DL Aspartate Amino Transf 15 U/L (AST/SGOT) Alanine Aminotransferase 7 U/L (ALT/SGPT) Alkaline Phosphatase 95 U/L Total Creatine Kinase 38 U/L Total Protein 5.6 GM/DL Albumin 2.2 GM/DL Procalcitonin 0.13 ng/mL White Blood Count 7.2 TH/MM3 Red Blood Count 3.65 MIL/MM3 Hemoglobin 11.2 GM/DL Hematocrit 33.5 % Mean Corpuscular Volume 91.9 FL Mean Corpuscular Hemoglobin 30.7 PG Mean Corpuscular Hemoglobin 33.5 % Concent Red Cell Distribution Width 16.0 % Platelet Count 407 TH/MM3 Mean Platelet Volume 8.1 FL Neutrophils (%) (Auto) 65.8 % Lymphocytes (%) (Auto) 9.8 % Monocytes (%) (Auto) 10.9 % Eosinophils (%) (Auto) 13.1 % Basophils (%) (Auto) 0.4 % Neutrophils # (Auto) 4.7 TH/MM3 Lymphocytes # (Auto) 0.7 TH/MM3 Monocytes # (Auto) 0.8 TH/MM3 Eosinophils # (Auto) 0.9 TH/MM3 Basophils # (Auto) 0.0 TH/MM3 CBC Comment DIFF FINAL Differential Comment Prothrombin Time 12.0 SEC Prothromb Time International 1.1 RATIO Ratio Sodium Level 140 MEQ/L Potassium Level 3.9 MEQ/L Chloride Level 101 MEQ/L Carbon Dioxide Level 29.5 MEQ/L Anion Gap 10 MEQ/L Blood Urea Nitrogen 3 MG/DL Creatinine 0.41 MG/DL Estimat Glomerular Filtration 160 ML/MIN Rate Random Glucose 97 MG/DL Calcium Level 8.7 MG/DL Magnesium Level 1.9 MG/DL Imaging Last Impressions Hip MRI 02/10/17 0000 Signed Impressions: Service Date/Time: Friday, February 10, 2017 19:58 - CONCLUSION: 1. Bilateral hip arthroplasties with pseudocapsule larger on the right than on the left. There are no findings to suggest abscess. 2. The pseudocapsule could be aspirated if clinically indicated Arvin Pimentel MD Chest X-Ray 02/09/17 0000 Signed Impressions: Service Date/Time: Thursday, February 09, 2017 13:21 - CONCLUSION: No acute disease. David Clark MD Objective Remarks General: NAD, AAOx3 Chest: CTA Cardiac: Regular Abd: +BS, soft ND/NT Ext: Bilateral LE edema, slightly increased from baseline. 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 She then underwent revision right total hip replacement arthroplasty on 12/17/[address] Hoffmann and subsequently developed pain and drainage from the surgical site and was admitted in 12/2016 and underwent debridement/ irrigation of right hip total hip replacement with abx beads placement on 01/12/17 with retained infected prosthesis with Dr. Hoffmann. Pt was seen by ID at that time and was started on Rifampin and IV Cefazolin during that admission and this was continued for a recommended 6 week regimen. - Patient reports that this past weekend on Wednesday she started having high fevers as high as 102-103 degrees. - Pt was recommended to return to the ED and had been previously planned for surgical intervention later this week. - Pt reports that Dr. Hoffmann is planning for surgery today - Appreciate ID consult. - MRI Hip (02/10/17) --> Bilateral hip arthroplasties with pseudocapsule larger on the right than on the left. There are no findings to suggest abscess. The pseudocapsule could be aspirated if clinically indicated - Blood cultures with NGTD - Continue Cefazolin 2gram Q8H and Rifampin - Tylenol PRN for fevers - Cont. home pain medication regimen. - Pt reports that she had stopped her Xarelto prior to admission in anticipation for upcoming surgery - Monitor labs and clinical status - IVF - Supportive care - DVT prophylaxis with SCDs (2) Fever Status: Acute Plan: - See above. (3) Dermatomyositis Status: Chronic Plan: - Pt has been off all immunosuppression medications for at least the last month - Pt has had increasing rash on her UE which she thinks may be her dermatomyositis (4) Hypothyroidism Status: Chronic Plan: - Cont. home meds Assessment and Plan Patient examined. Assessment and plan formulated with Evelin Sunshine PA-C. I agree with the above. right hip arthroplasty mssa infection. has been under rx with cefazolin/rifampin. going to OR for debridement given her recurrent fever. of note pt has been off all immunosuppressives in light of the infection. she has a poorly defined AI dz currently labeled as dermatomyositis by her local [employer] Supervisor but [facility] not in agreement. question raised if pt has persistent fevers then perhaps could be from the autoimmune dz. no clear test to clarify that but one would think a normal ck level and transaminases would indicate low disease activity.Although she does have some mild rash changes on forearms and shins. resuming immunosuppressives at this time would be difficult. Evelin Sunshine February 11, 2017 09:26 Ronnie Babin MD February 11, 2017 20:03
[2017-02-11] MEDS: PANTOPRAZOLE SOD 40 MG DELAYED RELEASE TAB PO SCH (09:53)
[2017-02-11] MEDS: RIFAMPIN 150 MG CAP PO SCH ×2 (09:53→21:38)
[2017-02-11] MEDS: NS + KCL 20 MEQ INJ 1,000 ML IV SCH ×2 (09:53→19:00)
[2017-02-11] MEDS: CARISOPRODOL 350 MG TAB PO PRN (10:00)
[2017-02-11] MEDS ORDERED: ONDANSETRON HCL 4 MG/2 ML VIAL IV PUSH ONE (11:00)
[2017-02-11] MEDS ORDERED: NEOSTIGMINE 3 MG/3 ML SYR IV ONE (11:00)
[2017-02-11] MEDS ORDERED: LACTATED RINGER'S 1000 ML INJ 1,000 ML IV ONE (11:00)
[2017-02-11] MEDS ORDERED: PHENYLEPH/NS 1000 MCG/10 ML SYR IV ONE (11:00)
[2017-02-11] MEDS ORDERED: PROPOFOL 200 MG/20 ML AMP IV ONE (11:00)
[2017-02-11 12:00] VITALS: BP 128/60; PULSE 90; RESP 18; TEMP 97.4; O2SAT 97
[2017-02-11] MEDS ORDERED: fentaNYL CITRATE 250 MCG/5 ML AMP IV ONE (12:00)
[2017-02-11] MEDS ORDERED: MIDAZOLAM HCL 2 MG/2 ML VIAL IV ONE (12:00)
[2017-02-11] MEDS ORDERED: ceFAZolin INJ 1,000 MG VIAL ONE (16:42)
[2017-02-11] MEDS ORDERED: VANCOMYCIN HCL 1000 MG VIAL ONE (16:43)
[2017-02-11] MEDS ORDERED: GENTAMICIN SULFATE 80 MG/2 ML VIAL ONE (16:43)
[2017-02-11] MEDS ORDERED: TOBRAMYCIN SULFATE 1200 MG VIAL ONE (16:43)
--- NOTE | 2017-02-11 17:59 | PD.OP ---
cc: Ronni Hoffmann MD Operative Report Date of Surgery: February 11, 2017 Preoperative Diagnosis: Status post infected right total hip replacement arthroplasty. Status post placement of antibiotic impregnated delivery device to the right hip. Postoperative Diagnosis: Same Procedure: Irrigation and debridement of the right total hip replacement arthroplasty, extensive. Removal of antibiotic impregnated delivery system device. Revision right acetabular component with revision of plastic liner and femoral head. Placement of calcium sulfate antibiotic delivery device with vancomycin and tobramycin. Multiple cultures right hip Anesthesia: Gen. Surgeon: Ronni Hoffmann Television Technician(s): JOHAN Julien Operation and Findings: EBL: 450 cc INDICATION: This patient is a 56-year-old female with a history of an infected right total hip replacement. She has a constrained liner. She's had a debridement 4-5 weeks ago with placement of methylmethacrylate antibiotic delivery device. She presents now for re-debridement exploration and revision. NOTE: Caridad Julien PA-C was present for the entire surgical procedure as my first responder. In my medical opinion her skill and care was necessary for the proper management of this patient. COMPONENTS: COMPANY: [employer] CUP: [place], 54 mm STEM: Size 2, high offset, [place] HEAD: 32 mm, +5 neck length, 12/14 taper PLASTIC: 32, +4, constrained liner PROCEDURE: This patient was brought to the operating room and anesthetized in the supine position and positioned on the routine table in the clean air suite. The patient was then rolled to a right side up lateral position and held with a Biomet hip positioner. The hip and leg was scrubbed with alcohol followed by Hibiclens followed by chloro prep and draped sterilely. A timeout was done and antibiotics were given within a routine time window. A 8 inch incision was made starting along the posterior one third of the greater trochanter. The previous incision was excised. The iliotibial band was opened in line with the incision. The Charnley retractors were positioned. The posterior capsule and external rotators were taken down together in a sleeve. In the subcutaneous tissues there was 2 small areas of fluid collection which appeared aseptic. 2 separate tissue cultures were sent down to pathology for culture. The sciatic nerve was palpated to be free of any obstruction or compression and posterior to the hip joint without any evidence of traction from the retractor. A fluid collection deep to the fascia was found. A slight discoloration was seen. Multiple deep tissue cultures were taken and sent to pathology. A frozen section was sent which showed acute inflammation. The previous antibiotic delivery device was removed. We elected to proceed forward with debridement and placement of antibiotic beads in light of having no absolute indication that this was still infected. 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 The previous head was removed. The plastic liner was removed from the cup to allow to be about behind the plastic liner. This was irrigated and the entire incision and wound was debrided of any granulation tissue and any area that had any questions about infection. The wound was irrigated copiously with multiple liters of antibiotic irrigation. On the back table calcium sulfate was mixed with 1.2 g of tobramycin and 1 g of vancomycin. This was allowed to set up. The wound was dried. Wound was irrigated copiously. The antibody beads were placed deep to the infection. The head was reimplanted using the constrained liner and locking ring with a new head that had no markings on it. This was disimpacted according to lamp tester and inspector's recommendation. The deep fascia was approximated with running 0 PDS and subcutaneous tissue 0 Monocryl. Skin with 2-0 Monocryl followed by 2-0 nylon in a mattress fashion. The patient was awakened and taken to the recovery room in satisfactory condition FINDINGS: There was no clear evidence of a persistent infection. Multiple cultures were obtained. Antibiotic beads were placed using a anabolic delivery device of calcium sulfate. No complication was appreciated. Ronni Hoffmann MD February 11, 2017 17:59
[2017-02-11] MEDS ORDERED: NALOXONE HCL 0.4 MG/ML AMP IV PRN (18:00)
[2017-02-11] MEDS ORDERED: MISCELLANEOUS NURSING INFORMATION XX PRN (18:00)
[2017-02-11] MEDS ORDERED: ALUMINUM/MAGNESIUM/SIMETH 30 ML CUP PO PRN (18:00)
[2017-02-11] MEDS ORDERED: MISCELLANEOUS PHARMACY INFORMATION XX ONE (18:00)
[2017-02-11] MEDS ORDERED: SODIUM CHLORIDE 0.9% FLUSH 5 ML FLUSH IVF PRN (18:00)
[2017-02-11] MEDS ORDERED: RIVAROXABAN 10 MG TAB PO SCH (18:00)
[2017-02-11] MEDS ORDERED: MORPHINE SULFATE 8 MG/ML INJ IM PRN (18:00)
[2017-02-11] MEDS ORDERED: *MEPERIDINE 25 MG INJ VIAL PERIprocedural Use ONLY ONE (18:53)
[2017-02-11] MEDS ORDERED: MORPHINE SULFATE 4 MG/ML INJ ONE ×2 (18:54→19:06)
[2017-02-11] MEDS ORDERED: LORazepam 2 MG/ML VIAL ONE (19:29)
--- NOTE | 2017-02-11 19:34 | RADRPT ---
EXAM DATE/TIME: 02/11/2017 18:44 [facility] COMPARISON: HIP RIGHT (AP&LAT 2/3VWS) WO AP PELVIS, January 12, 2017, 16:53. INDICATIONS : Post right hip procedure MEDICAL HISTORY : Infected right hip SURGICAL HISTORY : Right hip arthroplasty ENCOUNTER: Initial ACUITY: 1 day PAIN SCORE: 9/10 LOCATION: Right hip FINDINGS: Multiple methacrylate beads are seen about the femoral prosthesis. Alignment is anatomic. CONCLUSION: Anatomic alignment. Castro Hernández MD FACR on February 11, 2017 at 19:08 Board Certified Radiologist. This report was verified electronically.
[2017-02-11] MEDS ORDERED: DO NOT ADM ANY ANTICOAGULANT DRUGS PRN (19:45)
[2017-02-11] MEDS: LACTATED RINGER'S 1000 ML INJ 1,000 ML IV SCH (19:55)
[2017-02-11 20:48] VITALS: BP 117/59; PULSE 89; RESP 16; TEMP 99; O2SAT 98
[2017-02-11] MEDS: SODIUM CHLORIDE 0.9% FLUSH 5 ML FLUSH IVF SCH (21:00)
[2017-02-11] MEDS: DOCUSATE SODIUM 50 MG/SENNA 8.6 MG TAB PO SCH (21:38)
[2017-02-11] MEDS: PCA - TOTAL MG MORPHINE DELIVERED PER SHIFT SCH (21:39)
[2017-02-11] MEDS: MORPHINE SULFATE 30 MG/30 ML PCA IV SCH (23:03)
[2017-02-11 23:49] VITALS: BP 111/59; PULSE 91; RESP 17; TEMP 99.5; O2SAT 97
[2017-02-12] MEDS: MORPHINE SULFATE 30 MG CONTROLLED RELEASE TAB PO SCH ×3 (00:59→17:34)
[2017-02-12] MEDS: ceFAZolin 2 GM PREMIX 50 ML IV SCH ×3 (00:59→14:50)
[2017-02-12] MEDS: ONDANSETRON HCL 4 MG/2 ML VIAL IVP PRN ×2 (03:37→13:36)
[2017-02-12] MEDS: CARISOPRODOL 350 MG TAB PO PRN ×2 (03:39→14:50)
[2017-02-12] MEDS: ACETAMINOPHEN/HYDROcodone 325 MG/10 MG TAB PO PRN ×2 (03:44→22:07)
[2017-02-12 04:00] VITALS: BP 124/60; PULSE 103; RESP 18; TEMP 99.3; O2SAT 98
[2017-02-12] MEDS: NS + KCL 20 MEQ INJ 1,000 ML IV SCH ×2 (05:00→14:02)
[2017-02-12] MEDS: LEVOTHYROXINE SODIUM 88 MCG TAB PO SCH (05:09)
[2017-02-12] MEDS: MORPHINE SULFATE 30 MG/30 ML PCA IV SCH ×2 (05:10→12:23)
[2017-02-12] MEDS: PCA - TOTAL MG MORPHINE DELIVERED PER SHIFT SCH ×3 (05:15→22:00)
[2017-02-12 05:44] LABS: BASOPHIL % 0.4 % (0.0-2.0); EOSINOPHIL # 0.7 TH/MM3 (0-0.4); EOSINOPHIL % 9.7 % (0.0-4.0); HEMATOCRIT 24.8 % (35.0-46.0); HEMO FLAGS DIFF FINAL; LYMPH % 5.9 % (9.0-44.0); LYMPHOCYTE # 0.4 TH/MM3 (1.0-4.8); MEAN CELL VOLUME 90.8 FL (80.0-100.0); MEAN CORPUSCULAR HEMOGLOBIN 32.3 PG (27.0-34.0); MEAN CORPUSCULAR HGB CONC 35.6 % (32.0-36.0); PLATELET COUNT 355 TH/MM3 (150-450); RED BLOOD COUNT 2.73 MIL/MM3 (4.00-5.30); RED CELL DISTRIBUTION WIDTH 16.1 % (11.6-17.2)
[2017-02-12 06:00] LABS: BICARBONATE 28.4 MEQ/L (21.0-32.0); MAGNESIUM 1.4 MG/DL (1.5-2.5); POTASSIUM 3.5 MEQ/L (3.5-5.1)
--- NOTE | 2017-02-12 07:23 | PD.ORT.PN ---
Subjective Subjective Remarks Patient appears comfortable. Pain under control. On CARE TEAM ASSISTANT. Family or friends at bedside Objective Vitals Vital Signs Date Time Temp Pulse Resp B/P Pulse Ox O2 Delivery O2 Flow Rate FiO2 02/12/17 05:15 18 02/12/17 05:10 18 02/12/17 04:00 99.3 103 18 124/60 98 02/11/17 23:49 99.5 91 17 111/59 97 02/11/17 23:03 18 02/11/17 21:39 18 02/11/17 20:48 99.0 89 16 117/59 98 02/11/17 20:15 97.7 101 18 118/56 100 Nasal Cannula 2 02/11/17 20:00 105 17 117/59 100 Nasal Cannula 2 02/11/17 19:45 91 18 116/55 100 Nasal Cannula 2 02/11/17 19:30 87 16 124/60 99 Nasal Cannula 2 02/11/17 19:15 94 17 112/56 Nasal Cannula 2 02/11/17 19:00 102 17 109/58 Nasal Cannula 2 02/11/17 18:45 120 21 90/59 Nasal Cannula 2 02/11/17 18:37 97.5 120 25 90/53 Nasal Cannula 2 02/11/17 12:00 97.4 90 18 128/60 97 02/11/17 08:00 99.0 94 18 123/59 96 I/O 02/11/17 02/11/17 02/11/17 02/12/17 02/12/17 02/12/17 07:00 15:00 23:00 07:00 15:00 23:00 Intake Total 750 ml 0 ml 1520 ml 973 ml Output Total 1400 ml 800 ml 3000 ml 900 ml Balance -650 ml -800 ml -1480 ml 73 ml Intake Oral 0 ml 220 ml 380 ml IV Total 750 ml 593 ml Autotransfusion 0 ml Other 1300 ml Output Urine Total 1400 ml 800 ml 1700 ml 900 ml Estimated Blood Loss 1300 ml # Bowel Movements 0 Result Diagram: 02/12/17 0515 02/12/17 0515 Imaging Last 24 hours Impressions Hip X-Ray 02/11/17 1800 Signed Impressions: Service Date/Time: January 18:44 - CONCLUSION: Anatomic alignment. Castro Hernández MD FACR Objective Remarks Dressing dry. Tenderness or abnormal swelling. Assessment & Plan Ortho Post Op Day #: 1 Problem List: Assessment and Plan Infected revision right total hip replacement. IND with exchange of liner and antibiotic beads, POD #1. PLAN: Previous culture showed strep with broad sensitivity. Weightbearing as tolerated Xarelto for 25 days Multiple cultures obtained at second I&D, yesterday. We will need to watch cultures. 2 superficial and 2 were deep cultures. Antibiotics per infectious disease Discharge to home when cultures finalize and plans for IV antibiotics finalized. If culture is positive, consider restart of treatment at this point. 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 This is left her with a very weak hip. 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 The patient has a constrained liner. If this is removed, chance of dislocation with a interbody spacer is very high. I am out of town until Wednesday of next week. Irma is also out of town. Ronni Hoffmann MD February 12, 2017 07:23
[2017-02-12 08:00] VITALS: BP 116/55; PULSE 114; RESP 17; TEMP 101.4; O2SAT 94
[2017-02-12] MEDS: LACTATED RINGER'S 1000 ML INJ 1,000 ML IV SCH ×2 (08:55→22:09)
[2017-02-12] MEDS: SODIUM CHLORIDE 0.9% FLUSH 5 ML FLUSH IVF SCH ×2 (08:56→21:00)
[2017-02-12] MEDS: PANTOPRAZOLE SOD 40 MG DELAYED RELEASE TAB PO SCH (08:56)
[2017-02-12] MEDS: RIFAMPIN 150 MG CAP PO SCH ×2 (08:56→22:06)
--- NOTE | 2017-02-12 09:48 | HHI.PR ---
Subjective Remarks Pt underwent I&D of right hip with exchange of liner and antibiotic beads placed on 02/[address] Hoffmann. There were multiple cultures obtained, 2 superficial and 2 were deep cultures. She complained of a slightly productive cough today. Still febrile this morning. Pt ambulating to the chair with PT upon arrival to the pts room Objective Vitals Vital Signs Date Time Temp Pulse Resp B/P Pulse Ox O2 Delivery O2 Flow Rate FiO2 02/12/17 08:00 101.4 114 17 116/55 94 02/12/17 05:15 18 02/12/17 05:10 18 02/12/17 04:00 99.3 103 18 124/60 98 02/11/17 23:49 99.5 91 17 111/59 97 02/11/17 23:03 18 02/11/17 21:39 18 02/11/17 20:48 99.0 89 16 117/59 98 02/11/17 20:15 97.7 101 18 118/56 100 Nasal Cannula 2 02/11/17 20:00 105 17 117/59 100 Nasal Cannula 2 02/11/17 19:45 91 18 116/55 100 Nasal Cannula 2 02/11/17 19:30 87 16 124/60 99 Nasal Cannula 2 02/11/17 19:15 94 17 112/56 Nasal Cannula 2 02/11/17 19:00 102 17 109/58 Nasal Cannula 2 02/11/17 18:45 120 21 90/59 Nasal Cannula 2 02/11/17 18:37 97.5 120 25 90/53 Nasal Cannula 2 02/11/17 12:00 97.4 90 18 128/60 97 02/11/17 02/11/17 02/12/17 15:00 23:00 07:00 Intake Total 0 ml 1520 ml 973 ml Output Total 800 ml 3000 ml 900 ml Balance -800 ml -1480 ml 73 ml Intake Oral 0 ml 220 ml 380 ml IV Total 593 ml Autotransfusion 0 ml Other 1300 ml Output Urine Total 800 ml 1700 ml 900 ml Estimated Blood Loss 1300 ml # Bowel Movements 0 Result Diagram: 02/12/17 0515 02/12/17 0515 Other Results Laboratory Tests Test 02/10/17 02/11/17 02/12/17 21:07 05:56 05:15 Total Bilirubin 0.2 MG/DL Direct Bilirubin 0.1 MG/DL Indirect Bilirubin 0.1 MG/DL Aspartate Amino Transf 15 U/L (AST/SGOT) Alanine Aminotransferase 7 U/L (ALT/SGPT) Alkaline Phosphatase 95 U/L Total Creatine Kinase 38 U/L Total Protein 5.6 GM/DL Albumin 2.2 GM/DL Procalcitonin 0.13 ng/mL White Blood Count 7.2 TH/MM3 7.0 TH/MM3 Red Blood Count 3.65 MIL/MM3 2.73 MIL/MM3 Hemoglobin 11.2 GM/DL 8.8 GM/DL Hematocrit 33.5 % 24.8 % Mean Corpuscular Volume 91.9 FL 90.8 FL Mean Corpuscular Hemoglobin 30.7 PG 32.3 PG Mean Corpuscular Hemoglobin 33.5 % 35.6 % Concent Red Cell Distribution Width 16.0 % 16.1 % Platelet Count 407 TH/MM3 355 TH/MM3 Mean Platelet Volume 8.1 FL 8.0 FL Neutrophils (%) (Auto) 65.8 % 71.0 % Lymphocytes (%) (Auto) 9.8 % 5.9 % Monocytes (%) (Auto) 10.9 % 13.0 % Eosinophils (%) (Auto) 13.1 % 9.7 % Basophils (%) (Auto) 0.4 % 0.4 % Neutrophils # (Auto) 4.7 TH/MM3 5.0 TH/MM3 Lymphocytes # (Auto) 0.7 TH/MM3 0.4 TH/MM3 Monocytes # (Auto) 0.8 TH/MM3 0.9 TH/MM3 Eosinophils # (Auto) 0.9 TH/MM3 0.7 TH/MM3 Basophils # (Auto) 0.0 TH/MM3 0.0 TH/MM3 CBC Comment DIFF FINAL DIFF FINAL Differential Comment Prothrombin Time 12.0 SEC Prothromb Time International 1.1 RATIO Ratio Sodium Level 140 MEQ/L 137 MEQ/L Potassium Level 3.9 MEQ/L 3.5 MEQ/L Chloride Level 101 MEQ/L 100 MEQ/L Carbon Dioxide Level 29.5 MEQ/L 28.4 MEQ/L Anion Gap 10 MEQ/L 9 MEQ/L Blood Urea Nitrogen 3 MG/DL 6 MG/DL Creatinine 0.41 MG/DL 0.58 MG/DL Estimat Glomerular Filtration 160 ML/MIN 107 ML/MIN Rate Random Glucose 97 MG/DL 103 MG/DL Calcium Level 8.7 MG/DL 8.9 MG/DL Magnesium Level 1.9 MG/DL 1.4 MG/DL Imaging Last Impressions Hip MRI 02/10/17 0000 Signed Impressions: Service Date/Time: Friday, February 10, 2017 19:58 - CONCLUSION: 1. Bilateral hip arthroplasties with pseudocapsule larger on the right than on the left. There are no findings to suggest abscess. 2. The pseudocapsule could be aspirated if clinically indicated Arvin Pimentel MD Chest X-Ray 02/09/17 0000 Signed Impressions: Service Date/Time: Thursday, February 09, 2017 13:21 - CONCLUSION: No acute disease. 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 She then underwent revision right total hip replacement arthroplasty on 12/17/[address] Hoffmann and subsequently developed pain and drainage from the surgical site and was admitted in 12/2016 and underwent debridement/ irrigation of right hip total hip replacement with abx beads placement on 01/12/17 with retained infected prosthesis with Dr. Hoffmann. Pt was seen by ID at that time and was started on Rifampin and IV Cefazolin during that admission and this was continued for a recommended 6 week regimen. - Patient reported that this past weekend she started having high fevers as high as 102-103 degrees. - Appreciate ID consult. - MRI Hip (02/10/17) --> Bilateral hip arthroplasties with pseudocapsule larger on the right than on the left. There are no findings to suggest abscess. The pseudocapsule could be aspirated if clinically indicated - Blood cultures with NGTD - Continue Cefazolin 2gram Q8H and Rifampin - Pt underwent I&D with exchange of liner and antibiotic beads on 02/[address] Hoffmann. There were multiple cultures obtained, 2 superficial and 2 were deep cultures. - Tylenol PRN for fevers - Cont. home pain medication regimen. - Xarelto to be resumed this evening. - Supportive care (2) Fever Status: Acute Plan: - See above. (3) Dermatomyositis Status: Chronic Plan: - Pt has been off all immunosuppression medications for at least the last month - Pt has had increasing rash on her UE which she thinks may be her dermatomyositis - Of note, she has a poorly defined autoimmune disease, currently labeled as dermatomyositis by her local [employer] but previous records indicated [facility] was not in agreement. The question was raised if pt has persistent fevers then perhaps this could be from the autoimmune dz. There is no clear test to clarify that but one would think a normal CK level and transaminases would indicate low disease activity. Although she does have some mild rash changes on forearms and shins. Resuming immunosuppressives at this time would be difficult. (4) Hypothyroidism Status: Chronic Plan: - Cont. home meds Assessment and Plan Patient examined. Assessment and plan formulated with Evelin Sunshine PA-C. I agree with the above. debridement of right hip arthroplasty on abx for mssa previously identified. perisent fevers. not clearly related to her poorly defined AI dz but she is off all immunosuppressive meds Evelin Sunshine February 12, 2017 09:47 Ronnie Babin MD February 12, 2017 21:22
[2017-02-12] MEDS ORDERED: RESP: ALBUTEROL 2.5 MG/IPRATROPIUM 0.5 MG NEB (PRN) NEB (10:00)
[2017-02-12] MEDS: MAGNESIUM SULFATE 1 GM PREMIX 100 ML IV SCH ×2 (10:09→12:27)
[2017-02-12] MEDS: ACETAMINOPHEN 325 MG TAB PO PRN (10:09)
[2017-02-12 12:00] VITALS: BP 110/53; PULSE 105; RESP 23; TEMP 98.5; O2SAT 95
--- NOTE | 2017-02-12 13:27 | HHI.FF ---
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 [] May leave port accessed during therapy. [] May leave peripheral site accessed for duration of therapy. [x] If patient has SOB or respiratory distress, check oxygen saturation. If less than 90% or clinical signs of respiratory distress, administer oxygen at 2 L/min. via nasal cannula and notify physician. [x] Anaphylaxis/Reaction orders: * Stop infusion. * Keep IV line open with saline flush. * Notify physician. * Monitor vital signs every 15 minutes until symptoms resolve. * Check Oxygen saturation; Oxygen at 2 L/min. via nasal cannula if less than 90% or clinical signs of respiratory distress. * Administer diphenhydramine (Benadryl) 25 mg IV STAT, (unless patient has received as pre-med). May repeat once, if necessary. * Solu-Cortef 250 mg IVP over 30-60 seconds, use 100 mg vials for each dissolution. * Epinephrine (1mg/1 ml) 0.3 mg subcutaneously or IVP now with any signs of respiratory distress. * Check with physician for new additional pre-med orders if patient is re- challenged or re-treated. [x] May remove PICC line when treatment complete, after confirming with Physician. [x] If the patient is admitted to the hospital, the ED, or transferred via [facility] , complete transfer form including medication reconciliation order sheet. Laboratory Tests Weekly Labs: CBC w/diff, Creatinine, CRP, LFT's (Hepatic function test), SED Rate Additional Information DISREGARD - PLEASE SEE THE OTHER ORDER Nga Ariza MD February 12, 2017 13:27
[2017-02-12 16:00] VITALS: BP 111/57; PULSE 126; RESP 20; TEMP 99.4; O2SAT 94
[2017-02-12] MEDS: RIVAROXABAN 10 MG TAB PO SCH (17:35)
--- NOTE | 2017-02-12 18:08 | HHI.IDPN ---
Subjective Subjective Remarks pt is having temp of 101.4 co rash op report reviewed: clear fluid was encounted Gstains 4/ not sugg of infx, clx ne @ 24 hrs Antibiotics cefazoline rif Allergies: Coded Allergies: No Known Allergies (Unverified , 02/09/17) Objective . Vital Signs Date Time Temp Pulse Resp B/P Pulse Ox O2 Delivery O2 Flow Rate FiO2 02/12/17 14:00 16 02/12/17 12:23 16 02/12/17 12:00 98.5 105 23 110/53 95 02/12/17 08:00 101.4 114 17 116/55 94 02/12/17 05:15 18 02/12/17 05:10 18 02/12/17 04:00 99.3 103 18 124/60 98 02/11/17 23:49 99.5 91 17 111/59 97 02/11/17 23:03 18 02/11/17 21:39 18 02/11/17 20:48 99.0 89 16 117/59 98 02/11/17 20:15 97.7 101 18 118/56 100 Nasal Cannula 2 02/11/17 20:00 105 17 117/59 100 Nasal Cannula 2 02/11/17 19:45 91 18 116/55 100 Nasal Cannula 2 02/11/17 19:30 87 16 124/60 99 Nasal Cannula 2 02/11/17 19:15 94 17 112/56 Nasal Cannula 2 02/11/17 19:00 102 17 109/58 Nasal Cannula 2 02/11/17 18:45 120 21 90/59 Nasal Cannula 2 02/11/17 18:37 97.5 120 25 90/53 Nasal Cannula 2 02/11/17 02/11/17 02/12/17 15:00 23:00 07:00 Intake Total 0 ml 1520 ml 973 ml Output Total 800 ml 3000 ml 900 ml Balance -800 ml -1480 ml 73 ml Intake Oral 0 ml 220 ml 380 ml IV Total 593 ml Autotransfusion 0 ml Other 1300 ml Output Urine Total 800 ml 1700 ml 900 ml Estimated Blood Loss 1300 ml # Bowel Movements 0 . Laboratory Tests Test 02/11/17 02/12/17 05:56 05:15 White Blood Count 7.2 TH/MM3 7.0 TH/MM3 Red Blood Count 3.65 MIL/MM3 2.73 MIL/MM3 Hemoglobin 11.2 GM/DL 8.8 GM/DL Hematocrit 33.5 % 24.8 % Mean Corpuscular Volume 91.9 FL 90.8 FL Mean Corpuscular Hemoglobin 30.7 PG 32.3 PG Mean Corpuscular Hemoglobin 33.5 % 35.6 % Concent Red Cell Distribution Width 16.0 % 16.1 % Platelet Count 407 TH/MM3 355 TH/MM3 Mean Platelet Volume 8.1 FL 8.0 FL Neutrophils (%) (Auto) 65.8 % 71.0 % Lymphocytes (%) (Auto) 9.8 % 5.9 % Monocytes (%) (Auto) 10.9 % 13.0 % Eosinophils (%) (Auto) 13.1 % 9.7 % Basophils (%) (Auto) 0.4 % 0.4 % Neutrophils # (Auto) 4.7 TH/MM3 5.0 TH/MM3 Lymphocytes # (Auto) 0.7 TH/MM3 0.4 TH/MM3 Monocytes # (Auto) 0.8 TH/MM3 0.9 TH/MM3 Eosinophils # (Auto) 0.9 TH/MM3 0.7 TH/MM3 Basophils # (Auto) 0.0 TH/MM3 0.0 TH/MM3 CBC Comment DIFF FINAL DIFF FINAL Differential Comment Laboratory Tests Test 02/10/17 02/11/17 02/12/17 21:07 05:56 05:15 Total Bilirubin 0.2 MG/DL Direct Bilirubin 0.1 MG/DL Indirect Bilirubin 0.1 MG/DL Aspartate Amino Transf 15 U/L (AST/SGOT) Alanine Aminotransferase 7 U/L (ALT/SGPT) Alkaline Phosphatase 95 U/L Total Creatine Kinase 38 U/L Total Protein 5.6 GM/DL Albumin 2.2 GM/DL Procalcitonin 0.13 ng/mL Sodium Level 140 MEQ/L 137 MEQ/L Potassium Level 3.9 MEQ/L 3.5 MEQ/L Chloride Level 101 MEQ/L 100 MEQ/L Carbon Dioxide Level 29.5 MEQ/L 28.4 MEQ/L Anion Gap 10 MEQ/L 9 MEQ/L Blood Urea Nitrogen 3 MG/DL 6 MG/DL Creatinine 0.41 MG/DL 0.58 MG/DL Estimat Glomerular Filtration 160 ML/MIN 107 ML/MIN Rate Random Glucose 97 MG/DL 103 MG/DL Calcium Level 8.7 MG/DL 8.9 MG/DL Magnesium Level 1.9 MG/DL 1.4 MG/DL Microbiology Date/Time Procedure Status Source Growth 02/11/17 15:48 Gram Stain - Final Resulted Wound Hip 02/11/17 15:48 Wound Culture - Preliminary Resulted Wound Hip NO GROWTH IN 24 HOURS. 02/11/17 15:48 Acid Fast Stain - Final Resulted Wound Hip NO ACID FAST BACILLI SEEN 02/11/17 15:48 Mycobacterial Culture Resulted Wound Hip Pending 02/11/17 15:48 Fungal Smear - Final Resulted Wound Hip NO FUNGAL ELEMENTS SEEN. 02/11/17 15:48 Fungal Culture Resulted Wound Hip Pending 02/11/17 15:48 Gram Stain - Final Resulted Wound Hip 02/11/17 15:48 Wound Culture - Preliminary Resulted Wound Hip NO GROWTH IN 24 HOURS. 02/11/17 15:48 Acid Fast Stain - Final Resulted Wound Hip NO ACID FAST BACILLI SEEN 02/11/17 15:48 Mycobacterial Culture Resulted Wound Hip Pending 02/11/17 15:48 Fungal Smear - Final Resulted Wound Hip NO FUNGAL ELEMENTS SEEN. 02/11/17 15:48 Fungal Culture Resulted Wound Hip Pending 02/11/17 15:48 Gram Stain - Final Resulted Wound Hip 02/11/17 15:48 Wound Culture - Preliminary Resulted Wound Hip NO GROWTH IN 24 HOURS. 02/11/17 15:48 Acid Fast Stain - Final Resulted Wound Hip NO ACID FAST BACILLI SEEN 02/11/17 15:48 Mycobacterial Culture Resulted Wound Hip Pending 02/11/17 15:48 Fungal Smear - Final Resulted Wound Hip NO FUNGAL ELEMENTS SEEN. 02/11/17 15:48 Fungal Culture Resulted Wound Hip Pending 02/11/17 15:48 Gram Stain - Final Resulted Wound Hip 02/11/17 15:48 Wound Culture - Preliminary Resulted Wound Hip NO GROWTH IN 24 HOURS. 02/11/17 15:48 Acid Fast Stain - Final Resulted Wound Hip NO ACID FAST BACILLI SEEN 02/11/17 15:48 Mycobacterial Culture Resulted Wound Hip Pending 02/11/17 15:48 Fungal Smear - Final Resulted Wound Hip NO FUNGAL ELEMENTS SEEN. 02/11/17 15:48 Fungal Culture Resulted Wound Hip Pending 02/12/17 17:05 Aerobic Blood Culture Received Blood Peripheral Pending 02/12/17 17:05 Anaerobic Blood Culture Received Blood Peripheral Pending 02/12/17 17:11 Aerobic Blood Culture Received Blood Peripheral Pending 02/12/17 17:11 Anaerobic Blood Culture Received Blood Peripheral Pending Imaging Last Impressions Hip X-Ray 02/11/17 1800 Signed Impressions: Service Date/Time: January 18:44 - CONCLUSION: Anatomic alignment. Castro Hernández MD FACR Hip MRI 02/10/17 0000 Signed Impressions: Service Date/Time: Friday, February 10, 2017 19:58 - CONCLUSION: 1. Bilateral hip arthroplasties with pseudocapsule larger on the right than on the left. There are no findings to suggest abscess. 2. The pseudocapsule could be aspirated if clinically indicated Arvin Pimentel MD Chest X-Ray 02/09/17 0000 Signed Impressions: Service Date/Time: Thursday, February 09, 2017 13:21 - CONCLUSION: No acute disease. David Clark MD Physical Exam CONSTITUTIONAL/GENERAL: This is an adequately nourished patient, in no distress TUBES/LINES/DRAINS: PORT in place L chest, site looks OK SKIN: No jaundice, Erythematous rashe on face, chest - looks much worse sice last admission HEAD: Atraumatic. Normocephalic. EYES: Pupils equal and round and reactive. Extraocular motions intact. No scleral icterus. No injection or drainage. Fundi not examined. ENT: Hearing grossly normal. Nose without bleeding or purulent drainage. Oral mucosae without visible erythema, exudates, masses, or lesions. NECK: Trachea midline. Supple, nontender. CARDIOVASCULAR: Regular rate and rhythm without murmurs, gallops, or rubs. No JVD. Peripheral pulses symmetric. RESPIRATORY/CHEST: Symmetric, unlabored respirations. Clear to auscultation. Breath sounds equal bilaterally. No wheezes, rales, or rhonchi. GASTROINTESTINAL: Abdomen soft, non-tender, nondistended. No hepato-splenomegaly , or palpable masses. No guarding. Bowel sounds present. GENITOURINARY: Without palpable bladder distension. MUSCULOSKELETAL: Extremities without clubbing, cyanosis, or edema. No mottling or clubbing. R hip incision is completetly healed + mild edema nad induration around , but no fluctuance and/or erythema, not hot to touch no tenderness LYMPHATICS: No palpable cervical or supraclavicular adenopathy. NEUROLOGICAL: Awake and alert. Motor and sensory grossly within normal limits. Follows commands. Normal speech. Moves all extremities. PSYCHIATRIC: No obvious anxiety/depression. no apparent hallucinations or other psychotic thought process. Assessment & Plan Remarks R prosthetic hip infx, MSSA and viridans strep sp revision in November sp debridement with abx beads placement today 01/12 with retained infected prosthesis Dermatomyosystis, off all immunosuppresants Rituxan (on hold since Sep), prednisone, MTX FUO - source? - eosinophilia labs so far not sugg of sepsis or CTD flare up - Dermatomyositis dx in uncertain per reports from diff providers - cont cefazoline x 6 wks -cont rifampin - chk urine eosinophils dw Dr Talya harrell pt dw case mngr Nga Ariza MD February 12, 2017 18:08
[2017-02-12 20:00] VITALS: BP 117/57; PULSE 119; RESP 20; TEMP 101.7; O2SAT 96
[2017-02-12] MEDS: DOCUSATE SODIUM 50 MG/SENNA 8.6 MG TAB PO SCH (22:06)
[2017-02-12] MEDS: ALPRAZolam 0.5 MG TAB PO PRN (22:17)
[2017-02-13] VITALS: BP 114/59; PULSE 93; RESP 20; TEMP 98.4; O2SAT 94
[2017-02-13] MEDS: MORPHINE SULFATE 30 MG CONTROLLED RELEASE TAB PO SCH ×3 (00:54→16:53)
[2017-02-13] MEDS: NS + KCL 20 MEQ INJ 1,000 ML IV SCH ×2 (00:56→11:00)
[2017-02-13] MEDS: PCA - TOTAL MG MORPHINE DELIVERED PER SHIFT SCH ×3 (00:56→22:00)
[2017-02-13] MEDS: ceFAZolin 2 GM PREMIX 50 ML IV SCH ×4 (00:56→23:20)
[2017-02-13] MEDS: ACETAMINOPHEN/HYDROcodone 325 MG/10 MG TAB PO PRN ×4 (04:29→23:21)
[2017-02-13] MEDS: LEVOTHYROXINE SODIUM 88 MCG TAB PO SCH (04:29)
--- NOTE | 2017-02-13 06:39 | RADRPT ---
EXAM DATE/TIME: 02/13/2017 06:04 [facility] COMPARISON: CHEST SINGLE AP, February 09, 2017, 13:21. INDICATIONS : Cough. MEDICAL HISTORY : Osteomyelitis. SURGICAL HISTORY : ORIF right hip. Infusaport. ENCOUNTER: Subsequent ACUITY: 4 - 6 days PAIN SCORE: Non-responsive. LOCATION: Bilateral chest FINDINGS: A single view of the chest demonstrates the lungs to be symmetrically aerated without evidence of mas s, infiltrate or effusion. Minimal linear atelectasis or scarring at the bases. The cardiomediastinal contours are unremarkable. Osseous structures are intact. CONCLUSION: 1. No active disease. [id number] tip in superior vena cava. Minimal basilar atelectasis or scarrin gVioletta Fitzpatrick MD on February 13, 2017 at 6:37 Board Certified Radiologist. This report was verified electronically.
[2017-02-13 08:00] VITALS: BP 116/56; PULSE 98; RESP 14; TEMP 98.5; O2SAT 96
[2017-02-13] MEDS: SODIUM CHLORIDE 0.9% FLUSH 5 ML FLUSH IVF SCH ×2 (09:00→21:00)
[2017-02-13] MEDS: PANTOPRAZOLE SOD 40 MG DELAYED RELEASE TAB PO SCH (09:19)
[2017-02-13] MEDS: LACTATED RINGER'S 1000 ML INJ 1,000 ML IV SCH (09:20)
[2017-02-13] MEDS: RIFAMPIN 150 MG CAP PO SCH ×2 (09:22→21:28)
--- NOTE | 2017-02-13 10:12 | PD.ORT.PN ---
Subjective Post Op Day #: 2 Subjective Remarks painful but slowly improving. able to use bedside commode. Objective Vitals Vital Signs Date Time Temp Pulse Resp B/P Pulse Ox O2 Delivery O2 Flow Rate FiO2 02/13/17 08:00 98.5 98 14 116/56 96 02/13/17 00:00 98.4 93 20 114/59 94 02/12/17 20:00 101.7 119 20 117/57 96 02/12/17 16:00 99.4 126 20 111/57 94 02/12/17 14:00 16 02/12/17 12:23 16 02/12/17 12:00 98.5 105 23 110/53 95 I/O 02/12/17 02/12/17 02/12/17 02/13/17 02/13/17 02/13/17 07:00 15:00 23:00 07:00 15:00 23:00 Intake Total 973 ml 3004 ml 924 ml 497 ml Output Total 900 ml 1300 ml 1375 ml 800 ml Balance 73 ml 1704 ml -451 ml -303 ml Intake Oral 380 ml 2340 ml 240 ml 240 ml IV Total 593 ml 664 ml 684 ml 257 ml Output Urine Total 900 ml 1300 ml 1375 ml 800 ml # Bowel Movements 0 0 0 Result Diagram: 02/12/17 0515 02/12/17 0515 Imaging Last 24 hours Impressions Hip X-Ray 02/11/17 1800 Signed Impressions: Service Date/Time: January 18:44 - CONCLUSION: Anatomic alignment. Castro Hernández MD FACR Objective Remarks Dressing dry. no Tenderness or abnormal swelling. neg homans Assessment & Plan Ortho Post Op Day #: 2 Problem List: Assessment and Plan Infected revision right total hip replacement. IND with exchange of liner and antibiotic beads, POD #2. per Dr. Ronni Hoffmann PLAN: Previous culture showed strep with broad sensitivity. Weightbearing as tolerated Xarelto for 25 days Multiple cultures obtained at second I&D, yesterday. We will need to watch cultures. 2 superficial and 2 were deep cultures. Antibiotics per infectious disease Discharge to home when cultures finalize and plans for IV antibiotics finalized. If culture is positive, consider restart of treatment at this point. 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 This is left her with a very weak hip. 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 The patient has a constrained liner. If this is removed, chance of dislocation with a interbody spacer is very high. I am out of town until Wednesday of next week. Irma is also out of town. Marcos Stubbs February 13, 2017 10:12
[2017-02-13] MEDS: CARISOPRODOL 350 MG TAB PO PRN ×3 (10:45→23:28)
[2017-02-13 12:00] VITALS: BP 116/59; PULSE 92; RESP 16; TEMP 98.2; O2SAT 96
--- NOTE | 2017-02-13 15:14 | HHI.PR ---
Subjective Remarks doing ok at moment Objective Vitals heart reg lung cta abd s/nt ext no pitting. Vital Signs Date Time Temp Pulse Resp B/P Pulse Ox O2 Delivery O2 Flow Rate FiO2 02/13/17 12:00 98.2 92 16 116/59 96 02/13/17 08:00 98.5 98 14 116/56 96 02/13/17 00:00 98.4 93 20 114/59 94 02/12/17 20:00 101.7 119 20 117/57 96 02/12/17 16:00 99.4 126 20 111/57 94 02/12/17 02/12/17 02/13/17 15:00 23:00 07:00 Intake Total 3004 ml 924 ml 497 ml Output Total 1300 ml 1375 ml 800 ml Balance 1704 ml -451 ml -303 ml Intake Oral 2340 ml 240 ml 240 ml IV Total 664 ml 684 ml 257 ml Output Urine Total 1300 ml 1375 ml 800 ml # Bowel Movements 0 0 0 Result Diagram: 02/12/17 0515 02/12/17 0515 Imaging Last Impressions Hip MRI 02/10/17 0000 Signed Impressions: Service Date/Time: Friday, February 10, 2017 19:58 - CONCLUSION: 1. Bilateral hip arthroplasties with pseudocapsule larger on the right than on the left. There are no findings to suggest abscess. 2. The pseudocapsule could be aspirated if clinically indicated Arvin Pimentel MD Chest X-Ray 02/09/17 0000 Signed Impressions: Service Date/Time: Thursday, February 09, 2017 13:21 - CONCLUSION: No acute disease. 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 She then underwent revision right total hip replacement arthroplasty on 12/17/[address] Hoffmann and subsequently developed pain and drainage from the surgical site and was admitted in 12/2016 and underwent debridement/ irrigation of right hip total hip replacement with abx beads placement on 01/12/17 with retained infected prosthesis with Dr. Hoffmann. Pt was seen by ID at that time and was started on Rifampin and IV Cefazolin during that admission and this was continued for a recommended 6 week regimen. - Patient reported that this past weekend she started having high fevers as high as 102-103 degrees. - Appreciate ID consult. - MRI Hip (02/10/17) --> Bilateral hip arthroplasties with pseudocapsule larger on the right than on the left. There are no findings to suggest abscess. The pseudocapsule could be aspirated if clinically indicated - Blood cultures with NGTD - Continue Cefazolin 2gram Q8H and Rifampin - Pt underwent I&D with exchange of liner and antibiotic beads on 02/[address] Hoffmann. There were multiple cultures obtained, 2 superficial and 2 were deep cultures. - Tylenol PRN for fevers - Cont. home pain medication regimen. - Xarelto to be resumed this evening. - Supportive care - check echo. ?tagged wbc scan if persistent fever? (2) Fever Status: Acute Plan: - See above. (3) Dermatomyositis Status: Chronic Plan: - Pt has been off all immunosuppression medications for at least the last month - Pt has had increasing rash on her UE which she thinks may be her dermatomyositis - Of note, she has a poorly defined autoimmune disease, currently labeled as dermatomyositis by her local [employer] but previous records indicated [facility] was not in agreement. The question was raised if pt has persistent fevers then perhaps this could be from the autoimmune dz. There is no clear test to clarify that but one would think a normal CK level and transaminases would indicate low disease activity. Although she does have some mild rash changes on forearms and shins. Resuming immunosuppressives at this time would be difficult. (4) Hypothyroidism Status: Chronic Plan: - Cont. home meds Ronnie Babin MD February 13, 2017 15:14
[2017-02-13 16:00] VITALS: BP 118/56; PULSE 96; RESP 18; TEMP 98; O2SAT 98
[2017-02-13] MEDS: RIVAROXABAN 10 MG TAB PO SCH (16:53)
[2017-02-13] MEDS: ONDANSETRON HCL 4 MG/2 ML VIAL IVP PRN ×2 (16:55→23:21)
--- NOTE | 2017-02-13 18:47 | HHI.PR ---
Addendum to Inpatient Note Additional Information cont to have intermittent low grade fever Doubt infectious ethiology based on negative cultures and nl procalcitonine Consider either autoimmune dz flair up vs medication induced (pt does have eosinophilia) If her cultures remain negative she is expected to be discharged on the same Rx (cefazoline+ rifampine) thru February 24 Nga Ariza MD February 13, 2017 18:47
[2017-02-13 20:00] VITALS: BP 122/57; PULSE 98; RESP 20; TEMP 99.5; O2SAT 92
[2017-02-13] MEDS: DOCUSATE SODIUM 50 MG/SENNA 8.6 MG TAB PO SCH (21:27)
[2017-02-13 22:00] VITALS: BP 119/56; PULSE 114; RESP 20; TEMP 99; O2SAT 92
[2017-02-14] VITALS: BP_SYST 119; BP_SYST 129; BP_DIAS 56; BP_DIAS 59; PULSE 114; PULSE 97; RESP 18; RESP 20; TEMP 97.5; TEMP 99; O2SAT 92; O2SAT 98
[2017-02-14] MEDS: ALPRAZolam 0.5 MG TAB PO PRN ×3 (00:19→21:35)
[2017-02-14] MEDS: MORPHINE SULFATE 30 MG CONTROLLED RELEASE TAB PO SCH ×3 (01:00→16:57)
[2017-02-14] MEDS: PCA - TOTAL MG MORPHINE DELIVERED PER SHIFT SCH ×3 (05:04→21:38)
[2017-02-14] MEDS: LEVOTHYROXINE SODIUM 88 MCG TAB PO SCH (05:04)
[2017-02-14] MEDS: CARISOPRODOL 350 MG TAB PO PRN ×3 (07:19→21:35)
[2017-02-14] MEDS: ACETAMINOPHEN/HYDROcodone 325 MG/10 MG TAB PO PRN ×3 (07:19→21:35)
--- NOTE | 2017-02-14 07:37 | EC ---
Study Study Date:02/13/2017 STUDY CONCLUSIONS SUMMARY - Left ventricle: The cavity size was normal. Wall thickness was normal. Systolic function was normal. The estimated ejection fraction was in the range of 55% to 60%. Wall motion was normal; there were no regional wall motion abnormalities. - Aortic valve: Valve area: 2.3cm^2 (Vmax). If LV function is below 40, please consider prescribing an ACEI or ARB or document rationale for non-use. PROCEDURE DATA STUDY STATUS: Elective. Procedure: Transthoracic echocardiography. Image quality was good. Scanning was performed from the parasternal, apical, and subcostal acoustic windows. Study completion: The patient tolerated the procedure well. Transthoracic echocardiography. M-mode, complete 2D, complete spectral Doppler, and color Doppler. Height: Height: 64in. Weight: Weight: 175.6lb. Body mass index: BMI: 30.2kg/m^2. Body surface area: BSA: 1.85m^2. Patient status: Inpatient. CARDIAC ANATOMY LEFT VENTRICLE: The cavity size was normal. Wall thickness was normal. Systolic function was normal. The estimated ejection fraction was in the range of 55% to 60%. Wall motion was normal; there were no regional wall motion abnormalities. AORTIC VALVE: Trileaflet; normal thickness leaflets. Doppler: Transvalvular velocity was within the normal range. There was no stenosis. No regurgitation. Valve area: 2.3cm^2 (Vmax). Indexed valve area: 1.24cm^2/m^2 (Vmax). Peak gradient: 12mm Hg (S). AORTA: Aortic root: The aortic root was normal in size. MITRAL VALVE: Structurally normal valve. Doppler: Transvalvular velocity was within the normal range. There was no evidence for stenosis. Trace regurgitation. Valve area by pressure half-time: 3.06cm^2. Indexed valve area by pressure half-time: 1.65cm^2/m^2. Peak gradient: 3mm Hg (D). LEFT ATRIUM: The atrium was normal in size. RIGHT VENTRICLE: The cavity size was normal. Wall thickness was normal. PULMONIC VALVE: Doppler: Transvalvular velocity was within the normal range. There was no evidence for stenosis. No regurgitation. TRICUSPID VALVE: Structurally normal valve. Doppler: Transvalvular velocity was within the normal range. No regurgitation. PULMONARY ARTERY: The main pulmonary artery was normal-sized. Systolic pressure was within the normal range. RIGHT ATRIUM: The atrium was normal in size. PERICARDIUM: There was no pericardial effusion. SYSTEMIC VEINS: Inferior vena cava: The vessel was normal in size. Patient weight: 175.6lb _Ejection fraction:_ 65-75% _Fractional shortening:_ 32% up to 5Kg 5-11.5Kg 11.6-22.9Kg 23-45Kg 45-57Kg Aortic Root 7-13 <17 13-22 17-27 17-27 LA diam 6-13 <23 24-38 33-47 37-40 RVID 10-17 7-15 7-15 7-18 8-17 LVIDd 12-22 <32 24-38 33-47 37-40 LVPW 2-4 3-6 5-7 6-8 7-8 IVS 2-4 3-6 5-7 6-8 7-8 BASIC MEASUREMENTS ADULT NORMAL Left ventricle LV internal dimension, ED, chordal 49.3 mm 43-52 level, PLAX LV internal dimension, ES, chordal 35.3 mm 23-38 level, PLAX Fractional shortening, chordal level, *28 % >29 PLAX LV posterior wall thickness, ED 9.03 mm IVS/LVPW ratio, ED 1 <1.3 Volume, ED, MOD, 1-plane 88 ml Volume, ES, MOD, 1-plane 36 ml Ejection fraction, MOD, 1-plane 59 % Stroke volume, MOD, 1-plane 52 ml Volume index, ED, MOD, 1-plane 48 ml/m^2 Volume index, ES, MOD, 1-plane 19 ml/m^2 Stroke index, MOD, 1-plane 28.1 ml/m^2 Ventricular septum Septal thickness, ED 9.03 mm Aortic valve Leaflet separation 20 mm 15-26 Left atrium Anterior-posterior dimension 29 mm Anterior-posterior dimension index 1.57 cm/m^2 <2.2 Right ventricle RV internal dimension, ED, PLAX 22.3 mm 19-38 BASIC MEASUREMENTS ADULT NORMAL Aortic valve Leaflet separation 20 mm 15-26 Aorta Root diameter, ED 30 mm 20-37 DOPPLER MEASUREMENTS ADULT NORMAL Aortic valve Peak velocity, S 176 cm/s Peak gradient, S 12 mm Hg Valve area, Vmax 2.3 cm^2 Valve area index, Vmax 1.24 cm^2/m^2 Mitral valve Peak E-wave velocity 85.4 cm/s Peak A-wave velocity 81.9 cm/s Pressure half-time 72 ms Peak gradient, D 3 mm Hg Peak E/A ratio 1 Valve area, pressure half-time 3.06 cm^2 Valve area index, pressure half-time 1.65 cm^2/m^2 Pulmonic valve Peak velocity, S 113 cm/s LEGEND: Mean values are shown as u=mean value. Asterisk (*) kerns values outside specified normal range. Prepared and signed by Akosua Escudero [id number]
[2017-02-14 07:44] LABS: MAGNESIUM 1.1 MG/DL (1.5-2.5)
[2017-02-14 08:00] VITALS: BP 127/60; PULSE 109; RESP 20; TEMP 98.9; O2SAT 94
[2017-02-14] MEDS: SODIUM CHLORIDE 0.9% FLUSH 5 ML FLUSH IVF SCH ×2 (09:00→21:00)
[2017-02-14] MEDS: PANTOPRAZOLE SOD 40 MG DELAYED RELEASE TAB PO SCH (09:02)
[2017-02-14] MEDS: RIFAMPIN 150 MG CAP PO SCH ×2 (09:02→21:30)
[2017-02-14] MEDS: ceFAZolin 2 GM PREMIX 50 ML IV SCH ×2 (09:03→15:13)
[2017-02-14 10:08] LABS: MAGNESIUM 1.1 MG/DL (1.5-2.5)
[2017-02-14 10:11] LABS: POTASSIUM 2.9 MEQ/L (3.5-5.1)
[2017-02-14] MEDS ORDERED: NS + KCL 20 MEQ INJ 1,000 ML IV SCH ×2 (10:15→11:00)
[2017-02-14] MEDS ORDERED: POTASSIUM CHLORIDE 20 MEQ CONTROLLED RELEASE TAB PO ONE (10:15)
[2017-02-14] MEDS: ONDANSETRON HCL 4 MG/2 ML VIAL IVP PRN ×3 (11:02→20:03)
[2017-02-14] MEDS: MAGNESIUM SULFATE 1 GM PREMIX 100 ML IV SCH ×2 (11:04→11:25)
--- NOTE | 2017-02-14 11:19 | PD.ORT.PN ---
Subjective Post Op Day #: 3 Subjective Remarks hip uncomfortable. N/V. Objective Vitals Vital Signs Date Time Temp Pulse Resp B/P Pulse Ox O2 Delivery O2 Flow Rate FiO2 02/14/17 08:00 98.9 109 20 127/60 94 02/14/17 00:00 99.0 114 20 119/56 92 02/13/17 20:00 99.5 98 20 122/57 92 02/13/17 16:00 98.0 96 18 118/56 98 02/13/17 12:00 98.2 92 16 116/59 96 I/O 02/13/17 02/13/17 02/13/17 02/14/17 02/14/17 02/14/17 07:00 15:00 23:00 07:00 15:00 23:00 Intake Total 497 ml 1137 ml 763 ml 858 ml Output Total 800 ml 700 ml 1000 ml 1000 ml Balance -303 ml 437 ml -237 ml -142 ml Intake Oral 240 ml 800 ml 240 ml 240 ml IV Total 257 ml 337 ml 523 ml 618 ml Output Urine Total 800 ml 700 ml 1000 ml 1000 ml # Bowel Movements 0 0 0 0 Result Diagram: 02/12/17 0515 02/14/17 0935 Imaging Last 24 hours Impressions Hip X-Ray 02/11/17 1800 Signed Impressions: Service Date/Time: January 18:44 - CONCLUSION: Anatomic alignment. Castro Hernández MD FACR Objective Remarks Dressing dry. no Tenderness or abnormal swelling. neg homans nvi Assessment & Plan Ortho Post Op Day #: 3 Problem List: Assessment and Plan Infected revision right total hip replacement. IND with exchange of liner and antibiotic beads, POD #2. per Dr. Ronni Hoffmann PLAN: Previous culture showed strep with broad sensitivity. Weightbearing as tolerated Xarelto for 25 days Multiple cultures obtained at second I&D, yesterday. We will need to watch cultures. 2 superficial and 2 were deep cultures. Antibiotics per infectious disease Discharge to home when cultures finalize and plans for IV antibiotics finalized. If culture is positive, consider restart of treatment at this point. 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 This is left her with a very weak hip. 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 The patient has a constrained liner. If this is removed, chance of dislocation with a interbody spacer is very high. I am out of town until Wednesday of next week. Irma is also out of town. Marcos Stubbs February 14, 2017 11:18
[2017-02-14 12:00] VITALS: BP 133/60; PULSE 91; RESP 18; TEMP 97.9; O2SAT 96
[2017-02-14] MEDS: NS + KCL 40 MEQ INJ 1,000 ML IV SCH ×2 (12:03→21:29)
[2017-02-14 13:31] LABS: BICARBONATE 34.4 MEQ/L (21.0-32.0)
[2017-02-14] MEDS: POTASSIUM CHLORIDE 10 MEQ CONTROLLED RELEASE TAB PO SCH ×3 (15:13→21:30)
[2017-02-14 16:00] VITALS: BP 130/62; PULSE 97; RESP 18; TEMP 99.2; O2SAT 93
[2017-02-14] MEDS: RIVAROXABAN 10 MG TAB PO SCH (16:57)
[2017-02-14 18:35] LABS: POTASSIUM 3.2 MEQ/L (3.5-5.1)
[2017-02-14] MEDS ORDERED: CALCITONIN SALMON INJ 400 UNITS/2 ML VIAL SQ ONE (18:45)
[2017-02-14 20:00] VITALS: BP 135/61; PULSE 100; RESP 20; TEMP 98.7; O2SAT 99
[2017-02-14] MEDS: DOCUSATE SODIUM 50 MG/SENNA 8.6 MG TAB PO SCH (21:00)
--- NOTE | 2017-02-14 21:25 | HHI.PR ---
Subjective Remarks poor po intake. alot of nausea and even vomiting daily since prior to admission. pt says its related to rifampin no confusion Objective Vitals vomiting oriented heart reg lung cta abd s/nt ext no edema Vital Signs Date Time Temp Pulse Resp B/P Pulse Ox O2 Delivery O2 Flow Rate FiO2 02/14/17 16:00 99.2 97 18 130/62 93 02/14/17 12:00 97.9 91 18 133/60 96 02/14/17 08:00 98.9 109 20 127/60 94 02/14/17 00:00 99.0 114 20 119/56 92 02/13/17 02/13/17 02/14/17 14:59 22:59 06:59 Intake Total 1137 ml 763 ml 858 ml Output Total 700 ml 1000 ml 1000 ml Balance 437 ml -237 ml -142 ml Intake Oral 800 ml 240 ml 240 ml IV Total 337 ml 523 ml 618 ml Output Urine Total 700 ml 1000 ml 1000 ml # Bowel Movements 0 0 0 Result Diagram: 02/12/17 0515 02/14/17 1741 Imaging Last Impressions Hip MRI 02/10/17 0000 Signed Impressions: Service Date/Time: Friday, February 10, 2017 19:58 - CONCLUSION: 1. Bilateral hip arthroplasties with pseudocapsule larger on the right than on the left. There are no findings to suggest abscess. 2. The pseudocapsule could be aspirated if clinically indicated Arvin Pimentel MD Chest X-Ray 02/09/17 0000 Signed Impressions: Service Date/Time: Thursday, February 09, 2017 13:21 - CONCLUSION: No acute disease. 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 She then underwent revision right total hip replacement arthroplasty on 12/17/[address] Hoffmann and subsequently developed pain and drainage from the surgical site and was admitted in 12/2016 and underwent debridement/ irrigation of right hip total hip replacement with abx beads placement on 01/12/17 with retained infected prosthesis with Dr. Hoffmann. Pt was seen by ID at that time and was started on Rifampin and IV Cefazolin during that admission and this was continued for a recommended 6 week regimen. - Patient reported that this past weekend she started having high fevers as high as 102-103 degrees. - MRI Hip (02/10/17) --> Bilateral hip arthroplasties with pseudocapsule larger on the right than on the left. There are no findings to suggest abscess. The pseudocapsule could be aspirated if clinically indicated - Blood cultures with NGTD - Continue Cefazolin 2gram Q8H and Rifampin - Pt underwent I&D with exchange of liner and antibiotic beads on 02/[address] Hoffmann. There were multiple cultures obtained, 2 superficial and 2 were deep cultures. so far cx ngtd - persistent fever of unknown origin. she has a vague AI dz and labeled dermatomyositis based on "aldolase/ck elevation" previous bx of right thigh inconclusive. she has been off immunosuppressives for a month and fever from this dz process was questioned but we have no definite proof. -today she is found suddenly to have hypercalcemia. associated with hyponatremia /hypokalemia/hypomag and could be related to poor po intake with n/v.....?malignancy..?immobility seems less likely. doubt prim hyperparath., only ca is in LR... No hx of granulomatous dz or myeloma. pth, pth related peptide, tsh, vit d levels ordered recheck ca after agressive ivf and if still elevated try sq calcitonin. If not bettter tomorrrow will probably give bisphosphonate like zometa or pamidronate. replace k,na,mg I think with her hypercalcemia and persistent fevers a CT scan of chest /abd/ pelvis should be ordered by tomorrow to evaluate for a hidden focus of infection or malignancy. cont abx per ID prn zofran..Pt is convinced her n/v is related to rifampin. - Xarelto to be resumed this evening. - Supportive care . ?tagged wbc scan if persistent fever? (2) Fever Status: Acute Plan: - See above. (3) Dermatomyositis Status: Chronic Plan: - Pt has been off all immunosuppression medications for at least the last month - Pt has had increasing rash on her UE which she thinks may be her dermatomyositis - Of note, she has a poorly defined autoimmune disease, currently labeled as dermatomyositis by her local [facility] but previous records indicated [facility] was not in agreement. The question was raised if pt has persistent fevers then perhaps this could be from the autoimmune dz. There is no clear test to clarify that but one would think a normal CK level and transaminases would indicate low disease activity. Although she does have some mild rash changes on forearms and shins. Resuming immunosuppressives at this time would be difficult. (4) Hypothyroidism Status: Chronic Plan: - Cont. home meds Ronnie Babin MD February 14, 2017 21:25
[2017-02-15] MEDS: ceFAZolin 2 GM PREMIX 50 ML IV SCH ×3 (00:18→17:31)
[2017-02-15] MEDS: MORPHINE SULFATE 30 MG CONTROLLED RELEASE TAB PO SCH ×3 (00:19→17:30)
--- NOTE | 2017-02-15 05:09 | HHI.PR ---
Addendum to Inpatient Note Additional Information progress noticed No fever since 02/12 Nausea/vomiting aw Rifampin Hypercalcemia (also can cause significaqnt nausea, vomiting) -will hold off rifampin Nga Ariza MD February 15, 2017 05:09
[2017-02-15] MEDS: ONDANSETRON HCL 4 MG/2 ML VIAL IVP PRN ×2 (05:21→17:30)
[2017-02-15] MEDS: NS + KCL 40 MEQ INJ 1,000 ML IV SCH ×3 (05:22→20:53)
[2017-02-15] MEDS: LEVOTHYROXINE SODIUM 88 MCG TAB PO SCH (05:24)
[2017-02-15] MEDS: CARISOPRODOL 350 MG TAB PO PRN ×3 (05:24→20:50)
[2017-02-15] MEDS: ALPRAZolam 0.5 MG TAB PO PRN ×2 (05:24→20:50)
[2017-02-15] MEDS: ACETAMINOPHEN/HYDROcodone 325 MG/10 MG TAB PO PRN ×3 (05:25→20:46)
[2017-02-15] MEDS: PCA - TOTAL MG MORPHINE DELIVERED PER SHIFT SCH ×3 (06:00→20:46)
[2017-02-15 06:29] LABS: BICARBONATE 34.4 MEQ/L (21.0-32.0); POTASSIUM 3.4 MEQ/L (3.5-5.1)
[2017-02-15] MEDS ORDERED: POTASSIUM PHOSPHATE MONOBASIC 500 MG TAB PO ONE (07:15)
[2017-02-15 08:00] VITALS: BP 125/58; PULSE 91; RESP 17; TEMP 96.7; O2SAT 93
[2017-02-15] MEDS: PANTOPRAZOLE SOD 40 MG DELAYED RELEASE TAB PO SCH (08:38)
[2017-02-15] MEDS: MAGNESIUM SULFATE 1 GM PREMIX 100 ML IV SCH ×2 (08:39→10:00)
[2017-02-15] MEDS: SODIUM CHLORIDE 0.9% FLUSH 5 ML FLUSH IVF SCH ×2 (08:44→20:46)
[2017-02-15] MEDS: RIFAMPIN 150 MG CAP PO SCH (09:00)
[2017-02-15 12:00] VITALS: BP 124/62; PULSE 93; RESP 17; TEMP 98.5; O2SAT 92
--- NOTE | 2017-02-15 12:11 | HHI.IDPN ---
Subjective Subjective Remarks No fever doc'd since Wednesday, but pt co on nightsweat, diaphoretic episodes and subjective fever She also co sever weakness and nausea/vomiting despite Rifampin yudith hold Clx fro the hip negative - final Antibiotics cefazoline rifampin - on hold Allergies: Coded Allergies: No Known Allergies (Unverified , 02/09/17) Objective . Vital Signs Date Time Temp Pulse Resp B/P Pulse Ox O2 Delivery O2 Flow Rate FiO2 02/15/17 08:00 96.7 91 17 125/58 93 02/14/17 20:00 98.7 100 20 135/61 99 02/14/17 16:00 99.2 97 18 130/62 93 02/14/17 02/14/17 02/15/17 15:00 23:00 07:00 Intake Total 1484 ml 830 ml 1433 ml Output Total 2200 ml 2400 ml 1500 ml Balance -716 ml -1570 ml -67 ml Intake Oral 600 ml 240 ml 240 ml IV Total 884 ml 590 ml 1193 ml Output Urine Total 2200 ml 2400 ml 1500 ml # Bowel Movements 1 0 0 . Laboratory Tests Test 02/14/17 02/14/17 02/14/17 02/14/17 06:40 09:35 12:59 17:41 Sodium Level 135 MEQ/L 131 MEQ/L 132 MEQ/L 135 MEQ/L Potassium Level 3.0 MEQ/L 2.9 MEQ/L 3.0 MEQ/L 3.2 MEQ/L Chloride Level 93 MEQ/L 88 MEQ/L 89 MEQ/L 92 MEQ/L Carbon Dioxide Level 35.0 MEQ/L 33.0 MEQ/L 34.4 MEQ/L 35.0 MEQ/L Anion Gap 7 MEQ/L 10 MEQ/L 9 MEQ/L 8 MEQ/L Blood Urea Nitrogen 5 MG/DL 5 MG/DL 6 MG/DL 5 MG/DL Creatinine 0.50 MG/DL 1.00 MG/DL 0.65 MG/DL 0.52 MG/DL Estimat Glomerular Filtration 127 ML/MIN 57 ML/MIN 94 ML/MIN 122 ML/MIN Rate Random Glucose 100 MG/DL 180 MG/DL 138 MG/DL 99 MG/DL Calcium Level 12.8 MG/DL 12.7 MG/DL 12.7 MG/DL 12.5 MG/DL Protein Corrected Calcium MG/DL MG/DL MG/DL MG/DL Magnesium Level 1.1 MG/DL 1.1 MG/DL Total Protein 5.2 GM/DL 5.4 GM/DL 5.5 GM/DL 4.8 GM/DL Phosphorus Level 3.4 MG/DL 25-Hydroxy Vitamin D Total 32.7 ng/ML Thyroid Stimulating Hormone 2.640 uIU/ML 3rd Gen Parathyroid Hormone (Intact) LESS THAN 2.5 PG/ML Test 02/15/17 05:36 Sodium Level 135 MEQ/L Potassium Level 3.4 MEQ/L Chloride Level 93 MEQ/L Carbon Dioxide Level 34.4 MEQ/L Anion Gap 8 MEQ/L Blood Urea Nitrogen 3 MG/DL Creatinine 0.45 MG/DL Estimat Glomerular Filtration 144 ML/MIN Rate Random Glucose 116 MG/DL Calcium Level 11.4 MG/DL Phosphorus Level 1.9 MG/DL Magnesium Level 1.0 MG/DL Microbiology Date/Time Procedure Status Source Growth 02/12/17 17:05 Aerobic Blood Culture - Preliminary Resulted Blood Peripheral NO GROWTH IN 3 DAYS 02/12/17 17:05 Anaerobic Blood Culture - Preliminary Resulted Blood Peripheral NO GROWTH IN 3 DAYS 02/12/17 17:11 Aerobic Blood Culture - Preliminary Resulted Blood Peripheral NO GROWTH IN 3 DAYS 02/12/17 17:11 Anaerobic Blood Culture - Preliminary Resulted Blood Peripheral NO GROWTH IN 3 DAYS Imaging Last Impressions Hip X-Ray 02/11/17 1800 Signed Impressions: Service Date/Time: January 18:44 - CONCLUSION: Anatomic alignment. Castro Hernández MD FACR Hip MRI 02/10/17 0000 Signed Impressions: Service Date/Time: Friday, February 10, 2017 19:58 - CONCLUSION: 1. Bilateral hip arthroplasties with pseudocapsule larger on the right than on the left. There are no findings to suggest abscess. 2. The pseudocapsule could be aspirated if clinically indicated Arvin Pimentel MD Chest X-Ray 02/09/17 0000 Signed Impressions: Service Date/Time: Thursday, February 09, 2017 13:21 - CONCLUSION: No acute disease. David Clark MD Physical Exam CONSTITUTIONAL/GENERAL: This is an adequately nourished patient, in no distress Ill appearing PORT in place L chest, site looks OK SKIN: No jaundice, Erythematous rash on face, chest - not noticable today EYES: Pupils equal and round and reactive. Extraocular motions intact. No scleral icterus. No injection or drainage. Fundi not examined. ENT: Oral mucosae without visible erythema, exudates, masses, or lesions. CARDIOVASCULAR: Regular rate and rhythm without murmurs, gallops, or rubs. No JVD. Peripheral pulses symmetric. RESPIRATORY/CHEST: Symmetric, unlabored respirations. Clear to auscultation. Breath sounds equal bilaterally. No wheezes, rales, or rhonchi. GASTROINTESTINAL: Abdomen soft, non-tender, nondistended. No hepato-splenomegaly , or palpable masses. No guarding. Bowel sounds present. GENITOURINARY: Without palpable bladder distension. MUSCULOSKELETAL: Extremities without clubbing, cyanosis, or edema. No mottling or clubbing. R hip incision is with dressing in place, no drainage, no edema or eythema around it NEUROLOGICAL: Awake and alert. Motor and sensory grossly within normal limits. Follows commands. Moves all extremities. PSYCHIATRIC: No obvious anxiety/depression. no apparent hallucinations or other psychotic thought process. Assessment & Plan Remarks R prosthetic hip infx, MSSA and viridans strep sp revision in November sp debridement with abx beads placement today 01/12 with retained infected prosthesis Dermatomyosystis, off all immunosuppresants Rituxan (on hold since Sep), prednisone, MTX FUO - source? - eosinophilia - no urine eosinophils labs so far not sugg of sepsis or CTD flare up - Dermatomyositis dx in uncertain per reports from diff providers - rash is barely seen New onsert hypercalcemia - ? cause Nausea, vomiting: ( hypercalcemia can cause significaqnt nausea, vomiting) -cont to hold rifampin for now; will resume if nausea/vomiting persist while off rifampin for few days - cont cefazoline x 6 wks dw pt Nga Ariza MD February 15, 2017 12:11
--- NOTE | 2017-02-15 15:14 | HHI.PR ---
Subjective Remarks Pt reports that she is still having nausea but no vomiting today She overall does not feel well. Pt has been afebrile since 02/12 but states that she is still having night sweats and diaphoretic episodes Pt overall feels weak Objective Vitals Vital Signs Date Time Temp Pulse Resp B/P Pulse Ox O2 Delivery O2 Flow Rate FiO2 02/15/17 12:00 98.5 93 17 124/62 92 02/15/17 08:00 96.7 91 17 125/58 93 02/14/17 20:00 98.7 100 20 135/61 99 02/14/17 16:00 99.2 97 18 130/62 93 02/14/17 02/14/17 02/15/17 15:00 23:00 07:00 Intake Total 1484 ml 830 ml 1433 ml Output Total 2200 ml 2400 ml 1500 ml Balance -716 ml -1570 ml -67 ml Intake Oral 600 ml 240 ml 240 ml IV Total 884 ml 590 ml 1193 ml Output Urine Total 2200 ml 2400 ml 1500 ml # Bowel Movements 1 0 0 Result Diagram: 02/12/17 0515 02/15/17 0536 Other Results Laboratory Tests Test 02/14/17 02/14/17 02/14/17 02/14/17 06:40 09:35 12:59 17:41 Sodium Level 135 MEQ/L 131 MEQ/L 132 MEQ/L 135 MEQ/L Potassium Level 3.0 MEQ/L 2.9 MEQ/L 3.0 MEQ/L 3.2 MEQ/L Chloride Level 93 MEQ/L 88 MEQ/L 89 MEQ/L 92 MEQ/L Carbon Dioxide Level 35.0 MEQ/L 33.0 MEQ/L 34.4 MEQ/L 35.0 MEQ/L Anion Gap 7 MEQ/L 10 MEQ/L 9 MEQ/L 8 MEQ/L Blood Urea Nitrogen 5 MG/DL 5 MG/DL 6 MG/DL 5 MG/DL Creatinine 0.50 MG/DL 1.00 MG/DL 0.65 MG/DL 0.52 MG/DL Estimat Glomerular Filtration 127 ML/MIN 57 ML/MIN 94 ML/MIN 122 ML/MIN Rate Random Glucose 100 MG/DL 180 MG/DL 138 MG/DL 99 MG/DL Calcium Level 12.8 MG/DL 12.7 MG/DL 12.7 MG/DL 12.5 MG/DL Protein Corrected Calcium MG/DL MG/DL MG/DL MG/DL Magnesium Level 1.1 MG/DL 1.1 MG/DL Total Protein 5.2 GM/DL 5.4 GM/DL 5.5 GM/DL 4.8 GM/DL Phosphorus Level 3.4 MG/DL 25-Hydroxy Vitamin D Total 32.7 ng/ML Thyroid Stimulating Hormone 2.640 uIU/ML 3rd Gen Parathyroid Hormone (Intact) LESS THAN 2.5 PG/ML Test 02/15/17 05:36 Sodium Level 135 MEQ/L Potassium Level 3.4 MEQ/L Chloride Level 93 MEQ/L Carbon Dioxide Level 34.4 MEQ/L Anion Gap 8 MEQ/L Blood Urea Nitrogen 3 MG/DL Creatinine 0.45 MG/DL Estimat Glomerular Filtration 144 ML/MIN Rate Random Glucose 116 MG/DL Calcium Level 11.4 MG/DL Phosphorus Level 1.9 MG/DL Magnesium Level 1.0 MG/DL Imaging Last Impressions Hip MRI 02/10/17 0000 Signed Impressions: Service Date/Time: Friday, February 10, 2017 19:58 - CONCLUSION: 1. Bilateral hip arthroplasties with pseudocapsule larger on the right than on the left. There are no findings to suggest abscess. 2. The pseudocapsule could be aspirated if clinically indicated Arvin Pimentel MD Chest X-Ray 02/09/17 0000 Signed Impressions: Service Date/Time: Thursday, February 09, 2017 13:21 - CONCLUSION: No acute disease. 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 She then underwent revision right total hip replacement arthroplasty on 12/17/[address] Hoffmann and subsequently developed pain and drainage from the surgical site and was admitted in 12/2016 and underwent debridement/ irrigation of right hip total hip replacement with abx beads placement on 01/12/17 with retained infected prosthesis with Dr. Hoffmann. Pt was seen by ID at that time and was started on Rifampin and IV Cefazolin during that admission and this was continued for a recommended 6 week regimen. - Patient reported that this past weekend she started having high fevers as high as 102-103 degrees. - MRI Hip (02/10/17) --> Bilateral hip arthroplasties with pseudocapsule larger on the right than on the left. There are no findings to suggest abscess. The pseudocapsule could be aspirated if clinically indicated - Blood cultures with NGTD - Continue Cefazolin 2gram Q8H and Rifampin - Pt underwent I&D with exchange of liner and antibiotic beads on 02/[address] Hoffmann. There were multiple cultures obtained, 2 superficial and 2 were deep cultures. so far cx ngtd - Pt has had persistent fever of unknown origin. She has a vague AI dz and labeled dermatomyositis based on "aldolase/ck elevation" previous bx of right thigh inconclusive. She has been off immunosuppressives for a month and fever from this dz process was questioned but we have no definite proof. - On 02/14 pt was found to suddenly have hypercalcemia with associated hyponatremia/hypokalemia/hypomagnesemia. This could be related to poor po intake with n/v, but ?malignancy, ?immobility seems less likely. Pt has no hx of granulomatous dz or myeloma. - Pt was given calcitonin on 02/14 with a mild decrease in Ca to 11/4 today. If this does not improve further tomorrow may consider giving Zometa or pamidronate. - PTH intact is less than 2.5, PTH related peptide ispending. - TSH WNL - Vit D levels pending. - Cont. IVF - Replace electrolytes. - CT scan of Chest/Abd/Pelvis today to evaluate for a hidden focus of infection or malignancy. - Pt continues to have nausea/vomiting despite holding the Rifampin. Per ID cont. to hold Rifampin and cont. Cefazolin. - Xarelto resumed on 02/12 - Supportive care (2) Fever Status: Acute Plan: - See above. (3) Dermatomyositis Status: Chronic Plan: - Pt has been off all immunosuppression medications for at least the last month - Pt had rash on her UE which she thinks may be her dermatomyositis - Of note, she has a poorly defined autoimmune disease, currently labeled as dermatomyositis by her local [facility] but previous records indicated [facility] was not in agreement. The question was raised if pt has persistent fevers then perhaps this could be from the autoimmune dz. There is no clear test to clarify that but one would think a normal CK level and transaminases would indicate low disease activity. Although she does have some mild rash changes on forearms and shins. Resuming immunosuppressives at this time would be difficult. (4) Hypothyroidism Status: Chronic Plan: - Cont. home meds Assessment and Plan Patient examined. Assessment and plan formulated with Evelin Sunshine PA-C. I agree with the above. Evelin Sunshine February 15, 2017 15:14 Fredis Calhoun DO February 19, 2017 12:39
[2017-02-15] MEDS ORDERED: POTASSIUM PHOSPHATE MONOBASIC 500 MG TAB PO SCH (15:15)
[2017-02-15 16:00] VITALS: BP 117/63; PULSE 92; RESP 17; TEMP 97.4; O2SAT 93
[2017-02-15] MEDS ORDERED: MAGNESIUM SULFATE 1 GM PREMIX 100 ML IV SCH (16:00)
[2017-02-15] MEDS ORDERED: DIATRIZOATE MEGLUM/DIATRIZOATE SOD 9 ML CUP PO ONE (16:00)
[2017-02-15] MEDS: RIVAROXABAN 10 MG TAB PO SCH (17:32)
[2017-02-15 20:00] VITALS: BP 130/61; PULSE 98; RESP 18; TEMP 99.5; O2SAT 94
[2017-02-15] MEDS ORDERED: IOHEXOL 350 MG/ML 10 ML VIAL (for RAD DIAG) IV ONE (20:28)
[2017-02-15] MEDS: DOCUSATE SODIUM 50 MG/SENNA 8.6 MG TAB PO SCH (20:45)
--- NOTE | 2017-02-15 21:22 | RADRPT ---
EXAM DATE/TIME: 02/15/2017 20:09 [facility] COMPARISON: No previous studies available for comparison. INDICATIONS : Diffuse abdomen pain, evaluate for mass. IV CONTRAST: 96 cc Omnipaque 350 (iohexol) IV ; Cumulative dose for multiple exams. ORAL CONTRAST: Prescribed oral contrast ingested. RADIATION DOSE: 13.36 CTDIvol (mGy) ; Combined studies MEDICAL HISTORY : Hypertension. Hypothyroidism. SURGICAL HISTORY : Hysterectomy. gastric sleeve ENCOUNTER: Initial ACUITY: 1 day PAIN SCALE: 3/10 LOCATION: Bilateral abdomen TECHNIQUE: Volumetric scanning of the abdomen and pelvis was performed. Using automated exposure control and ad justment of the mA and/or kV according to patient size, radiation dose was kept as low as reasonably achievable to obtain optimal diagnostic quality images. FINDINGS: Lung bases are clear. Pacer lead tip in right atrium. Mild biliary ductal dilatation intrahepatic and extrahepatic to 13 mm. Spleen, adrenals, kidneys unre markable. There is a 2 cm cystic appearing mass probably associated with the body of the pancreas with a periph eral rim calcification, possibly an old pseudocyst. No prior study for comparison. There is no free fluid. No bowel obstruction. No adenopathy. There is bilateral hip replacement. There is fluid around the right hip prosthesis with some calcific ations posteriorly. CONCLUSION: 1. 2cm circumscribed mass between the stomach and pancreas with rim calcification, possibly an old ps eudocyst. 2. Moderate size fluid collection around the right hip prosthesis measuring up to about 3.5 cm in thi ckness posteriorly with some posterior calcifications. This could represent an old seroma. 3. Mild intrahepatic biliary ductal dilatation and extrahepatic bile duct dilatation to 13 mm. Martin Fitzpatrick MD on February 15, 2017 at 21:12 Board Certified Radiologist. This report was verified electronically.
--- NOTE | 2017-02-15 21:27 | RADRPT ---
EXAM DATE/TIME: 02/15/2017 20:09 [facility] COMPARISON: No previous studies available for comparison. INDICATIONS : Shortness of breath, evaluate for mass. IV CONTRAST: 96 cc Omnipaque 350 (iohexol) IV ; Cumulative dose for multiple exams. RADIATION DOSE: 13.36 CTDIvol (mGy) ; Combined studies MEDICAL HISTORY : Hypertension. Hyperthyroidism. SURGICAL HISTORY : Hysterectomy. gastric sleeve ENCOUNTER: Initial ACUITY: 1 day PAIN SCALE: 0/10 LOCATION: Bilateral chest TECHNIQUE: Volumetric scanning of the chest was performed. Using automated exposure control and adjustment of t he mA and/or kV according to patient size, radiation dose was kept as low as reasonably achievable to obtain optimal diagnostic quality images. FINDINGS: No lung consolidation or lung mass identified. There is no pleural effusion. Small pericardial effusi on. No hilar, mediastinal axillary adenopathy. Ksgypq-e-Xbgx tip in right atrium. See abdomen CT for findings below the diaphragm. No acute bony abnormalities. CONCLUSION: Small pericardial effusion. No lung consolidation. Hlctsg-g-Pqir tip in right atrium. Martin Fitzpatrick MD on February 15, 2017 at 21:20 Board Certified Radiologist. This report was verified electronically.
[2017-02-16] VITALS: BP 112/61; PULSE 84; RESP 18; TEMP 97.9; O2SAT 94
[2017-02-16] MEDS: MORPHINE SULFATE 30 MG CONTROLLED RELEASE TAB PO SCH ×3 (00:50→17:00)
[2017-02-16] MEDS: ceFAZolin 2 GM PREMIX 50 ML IV SCH ×3 (00:51→17:00)
[2017-02-16] MEDS: PCA - TOTAL MG MORPHINE DELIVERED PER SHIFT SCH ×3 (01:55→22:00)
[2017-02-16] MEDS: NS + KCL 40 MEQ INJ 1,000 ML IV SCH ×2 (04:00→11:24)
[2017-02-16] MEDS: ALPRAZolam 0.5 MG TAB PO PRN ×2 (05:05→18:08)
[2017-02-16] MEDS: LEVOTHYROXINE SODIUM 88 MCG TAB PO SCH (05:05)
[2017-02-16] MEDS: ACETAMINOPHEN/HYDROcodone 325 MG/10 MG TAB PO PRN ×3 (05:05→18:15)
[2017-02-16] MEDS: CARISOPRODOL 350 MG TAB PO PRN ×2 (05:05→13:25)
[2017-02-16 07:46] LABS: AUTOMATED NEUTROPHIL # 4.9 TH/MM3 (1.8-7.7); BASOPHIL # 0.1 TH/MM3 (0-0.2); BASOPHIL % 0.8 % (0.0-2.0); EOSINOPHIL # 0.6 TH/MM3 (0-0.4); EOSINOPHIL % 8.3 % (0.0-4.0); HEMATOCRIT 25.8 % (35.0-46.0); HEMO FLAGS DIFF FINAL; LYMPH % 9.3 % (9.0-44.0); LYMPHOCYTE # 0.7 TH/MM3 (1.0-4.8); MEAN CELL VOLUME 90.9 FL (80.0-100.0); MEAN CORPUSCULAR HEMOGLOBIN 30.2 PG (27.0-34.0); MEAN CORPUSCULAR HGB CONC 33.2 % (32.0-36.0); NEUT % 69.6 % (16.0-70.0); PLATELET COUNT 497 TH/MM3 (150-450); RED BLOOD COUNT 2.84 MIL/MM3 (4.00-5.30); RED CELL DISTRIBUTION WIDTH 15.5 % (11.6-17.2)
[2017-02-16 08:00] VITALS: BP 120/69; PULSE 82; RESP 17; TEMP 96.7; O2SAT 95
[2017-02-16 08:20] LABS: BICARBONATE 33.2 MEQ/L (21.0-32.0); MAGNESIUM 0.9 MG/DL (1.5-2.5); POTASSIUM 3.6 MEQ/L (3.5-5.1)
[2017-02-16] MEDS: SODIUM CHLORIDE 0.9% FLUSH 5 ML FLUSH IVF SCH ×2 (08:59→21:00)
[2017-02-16] MEDS: PANTOPRAZOLE SOD 40 MG DELAYED RELEASE TAB PO SCH (09:00)
[2017-02-16] MEDS: ONDANSETRON HCL 4 MG/2 ML VIAL IVP PRN ×2 (10:16→18:08)
[2017-02-16 12:00] VITALS: BP 117/61; PULSE 82; RESP 16; TEMP 98.4; O2SAT 97
--- NOTE | 2017-02-16 13:14 | PD.ORT.PN ---
Subjective Subjective Remarks pending discharge home with iv abx Objective Vitals Vital Signs Date Time Temp Pulse Resp B/P Pulse Ox O2 Delivery O2 Flow Rate FiO2 02/16/17 12:00 98.4 82 16 117/61 97 02/16/17 08:00 96.7 82 17 120/69 95 02/16/17 00:00 97.9 84 18 112/61 94 02/15/17 20:00 99.5 98 18 130/61 94 02/15/17 16:00 97.4 92 17 117/63 93 I/O 02/15/17 02/15/17 02/15/17 02/16/17 02/16/17 02/16/17 07:00 15:00 23:00 07:00 15:00 23:00 Intake Total 1433 ml 540 ml 468 ml 1497 ml Output Total 1500 ml 700 ml 800 ml 2250 ml Balance -67 ml -160 ml -332 ml -753 ml Intake Oral 240 ml 540 ml 240 ml 480 ml IV Total 1193 ml 228 ml 1017 ml Output Urine Total 1500 ml 700 ml 800 ml 2250 ml # Bowel Movements 0 0 0 0 Result Diagram: 02/16/17 0725 02/16/17 0725 Imaging Last 24 hours Impressions Hip X-Ray 02/11/17 1800 Signed Impressions: Service Date/Time: January 18:44 - CONCLUSION: Anatomic alignment. Castro Hernández MD FACR Objective Remarks Dressing dry. no Tenderness or abnormal swelling. neg homans nvi Assessment & Plan Assessment and Plan Infected revision right total hip replacement. IND with exchange of liner and antibiotic beads, POD #5. retained prosthesis with constrained liner per Dr. Ronni Hoffmann PLAN: Previous culture showed strep with broad sensitivity. Weightbearing as tolerated Xarelto for 25 days Multiple cultures obtained at second I&D, yesterday. cultures no growth to date as of 02/16/17 Antibiotics per infectious disease pending discharge home with iv abx per infectous disease spoke with nurse and disability case manager, abx arrangements complete, pending medical clearence for discharge will follow up with Marcos Mora MD February 16, 2017 13:14
--- NOTE | 2017-02-16 14:28 | HHI.IDPN ---
Subjective Subjective Remarks No fever Nausea improved; she thinks it was aw rifampin, but she is concerned being off it and is willing to rechallenge Ca is much improved Antibiotics cefazoline rifampin - on hold Allergies: Coded Allergies: No Known Allergies (Unverified , 02/09/17) Objective . Vital Signs Date Time Temp Pulse Resp B/P Pulse Ox O2 Delivery O2 Flow Rate FiO2 02/16/17 12:00 98.4 82 16 117/61 97 02/16/17 08:00 96.7 82 17 120/69 95 02/16/17 00:00 97.9 84 18 112/61 94 02/15/17 20:00 99.5 98 18 130/61 94 02/15/17 16:00 97.4 92 17 117/63 93 02/15/17 02/15/17 02/16/17 14:59 22:59 06:59 Intake Total 540 ml 468 ml 1497 ml Output Total 700 ml 800 ml 2250 ml Balance -160 ml -332 ml -753 ml Intake Oral 540 ml 240 ml 480 ml IV Total 228 ml 1017 ml Output Urine Total 700 ml 800 ml 2250 ml # Bowel Movements 0 0 0 . Laboratory Tests Test 02/16/17 07:25 White Blood Count 7.0 TH/MM3 Red Blood Count 2.84 MIL/MM3 Hemoglobin 8.6 GM/DL Hematocrit 25.8 % Mean Corpuscular Volume 90.9 FL Mean Corpuscular Hemoglobin 30.2 PG Mean Corpuscular Hemoglobin 33.2 % Concent Red Cell Distribution Width 15.5 % Platelet Count 497 TH/MM3 Mean Platelet Volume 7.1 FL Neutrophils (%) (Auto) 69.6 % Lymphocytes (%) (Auto) 9.3 % Monocytes (%) (Auto) 12.0 % Eosinophils (%) (Auto) 8.3 % Basophils (%) (Auto) 0.8 % Neutrophils # (Auto) 4.9 TH/MM3 Lymphocytes # (Auto) 0.7 TH/MM3 Monocytes # (Auto) 0.8 TH/MM3 Eosinophils # (Auto) 0.6 TH/MM3 Basophils # (Auto) 0.1 TH/MM3 CBC Comment DIFF FINAL Differential Comment Laboratory Tests Test 02/14/17 02/15/17 02/16/17 17:41 05:36 07:25 Sodium Level 135 MEQ/L 135 MEQ/L 139 MEQ/L Potassium Level 3.2 MEQ/L 3.4 MEQ/L 3.6 MEQ/L Chloride Level 92 MEQ/L 93 MEQ/L 96 MEQ/L Carbon Dioxide Level 35.0 MEQ/L 34.4 MEQ/L 33.2 MEQ/L Anion Gap 8 MEQ/L 8 MEQ/L 10 MEQ/L Blood Urea Nitrogen 5 MG/DL 3 MG/DL 3 MG/DL Creatinine 0.52 MG/DL 0.45 MG/DL 0.36 MG/DL Estimat Glomerular Filtration 122 ML/MIN 144 ML/MIN 186 ML/MIN Rate Random Glucose 99 MG/DL 116 MG/DL 82 MG/DL Calcium Level 12.5 MG/DL 11.4 MG/DL 10.0 MG/DL Protein Corrected Calcium MG/DL Total Protein 4.8 GM/DL Phosphorus Level 1.9 MG/DL 2.5 MG/DL Magnesium Level 1.0 MG/DL 0.9 MG/DL Imaging Last Impressions Chest CT 02/15/17 0000 Signed Impressions: Service Date/Time: Wednesday, February 15, 2017 20:09 - CONCLUSION: Small pericardial effusion. No lung consolidation. Xcttzg-j-Dqcu tip in right atrium. Martin Fitzpatrick MD Abdomen/Pelvis CT 02/15/17 0000 Signed Impressions: Service Date/Time: Wednesday, February 15, 2017 20:09 - CONCLUSION: 1. 2cm circumscribed mass between the stomach and pancreas with rim calcification, possibly an old pseudocyst. 2. Moderate size fluid collection around the right hip prosthesis measuring up to about 3.5 cm in thickness posteriorly with some posterior calcifications. This could represent an old seroma. 3. Mild intrahepatic biliary ductal dilatation and extrahepatic bile duct dilatation to 13 mm. Martin Fitzpatrick MD Chest X-Ray 02/13/17 0600 Signed Impressions: Service Date/Time: Monday, February 13, 2017 06:04 - CONCLUSION: 1. No active disease. Mxdftt-p-Cqfx tip in superior vena cava. Minimal basilar atelectasis or scarring. Martin Fitzpatrick MD Hip X-Ray 02/11/17 1800 Signed Impressions: Service Date/Time: January 18:44 - CONCLUSION: Anatomic alignment. Castro Hernández MD FACR Hip MRI 02/10/17 0000 Signed Impressions: Service Date/Time: Friday, February 10, 2017 19:58 - CONCLUSION: 1. Bilateral hip arthroplasties with pseudocapsule larger on the right than on the left. There are no findings to suggest abscess. 2. The pseudocapsule could be aspirated if clinically indicated Arvin Pimentel MD Physical Exam CONSTITUTIONAL/GENERAL: This is an adequately nourished patient, in no distress PORT in place L chest, site looks OK SKIN: No jaundice, Erythematous rash on face, chest - not noticable today EYES: Pupils equal and round and reactive. Extraocular motions intact. No scleral icterus. No injection or drainage. Fundi not examined. ENT: Oral mucosae without visible erythema, exudates, masses, or lesions. CARDIOVASCULAR: Regular rate and rhythm without murmurs, gallops, or rubs. No JVD. Peripheral pulses symmetric. RESPIRATORY/CHEST: Symmetric, unlabored respirations. Clear to auscultation. Breath sounds equal bilaterally. No wheezes, rales, or rhonchi. GASTROINTESTINAL: Abdomen soft, non-tender, nondistended. No hepato-splenomegaly , or palpable masses. No guarding. Bowel sounds present. MUSCULOSKELETAL: Extremities without clubbing, cyanosis, or edema. No mottling or clubbing. NEUROLOGICAL: Awake and alert. Motor and sensory grossly within normal limits. Follows commands. Moves all extremities. PSYCHIATRIC: No obvious anxiety/depression. no apparent hallucinations or other psychotic thought process. Assessment & Plan Remarks R prosthetic hip infx, MSSA and viridans strep sp revision in November sp debridement with abx beads placement today 01/12 with retained infected prosthesis - path results noted: severe inflammation Dermatomyosystis, off all immunosuppresants Rituxan (on hold since Sep), prednisone, MTX FUO - source? - eosinophilia - no urine eosinophils labs so far not sugg of sepsis or CTD flare up - Dermatomyositis dx in uncertain per reports from diff providers - rash is barely seen New onsert hypercalcemia - resolving - negative malignancy hector Nausea, vomiting: ( hypercalcemia vs rifampin) - will resume rifampin and see how she tolerates is - cont cefazoline x 6 wks - will count from the last sx since still very prominent inflammation - will need fu with Dr Meneses - [phone] - ok to be dc from ID stanpoin P resolution of other issues ABX DC RX: CEFAZOLINE 2 GM IV Q 8 HRS THRU MARCH 26 RIFAMPIN 300 MG PO BID THRU MARCH 26 - pt should only take rifampin on the days she is given cefazolin (or other effective abx), no monotherapy with rifampin 2./2 high risk of quickly acquired resistance LABS WEEKLY: CBC CMP ESR CRP dw pt dw Dr Calhoun dw case mngr Nga Ariza MD February 16, 2017 14:28
--- NOTE | 2017-02-16 14:31 | HHI.FF ---
Infusion Therapy Location of Infusion Therapy: [facility] IV Infusion Order Patient Information Patient Weight 85.1 kg Diagnosis: (1) Infection of right prosthetic hip joint Coded Allergies: No Known Allergies (Unverified , 02/09/17) Administer Medication Cefazolin 2 grams IV q 8 hours Start Treatment: February 16, 2017 Stop Treatment: Mar 26, 2017 Additional Information Venous access: Implanted Port Additional Instructions [x] Peripheral flush and dressing changes per protocol [x] Implanted port and central line mechanic: * Implanted port: 10 ml Normal Saline followed by 5 ml Heparin 100 units/ml Heparin flush after each use and monthly to maintain. [] May leave port accessed during therapy. [] May leave peripheral site accessed for duration of therapy. [x] If patient has SOB or respiratory distress, check oxygen saturation. If less than 90% or clinical signs of respiratory distress, administer oxygen at 2 L/min. via nasal cannula and notify physician. [x] Anaphylaxis/Reaction orders: * Stop infusion. * Keep IV line open with saline flush. * Notify physician. * Monitor vital signs every 15 minutes until symptoms resolve. * Check Oxygen saturation; Oxygen at 2 L/min. via nasal cannula if less than 90% or clinical signs of respiratory distress. * Administer diphenhydramine (Benadryl) 25 mg IV STAT, (unless patient has received as pre-med). May repeat once, if necessary. * Solu-Cortef 250 mg IVP over 30-60 seconds, use 100 mg vials for each dissolution. * Epinephrine (1mg/1 ml) 0.3 mg subcutaneously or IVP now with any signs of respiratory distress. * Check with physician for new additional pre-med orders if patient is re- challenged or re-treated. [x] May remove PICC line when treatment complete, after confirming with Physician. [x] If the patient is admitted to the hospital, the ED, or transferred via [facility] , complete transfer form including medication reconciliation order sheet. Laboratory Tests Weekly Labs: CBC w/diff, CMP, CRP, SED Rate Additional Information Fu with Nga Nelson MD February 16, 2017 14:31
[2017-02-16] MEDS ORDERED: CEFA2SOL IV (14:35)
[2017-02-16] MEDS ORDERED: EPIN1INJ21 IV PUSH (14:35)
[2017-02-16] MEDS ORDERED: SOLU250I IV PUSH (14:35)
[2017-02-16] MEDS ORDERED: EPIN1INJ21 SQ (14:35)
[2017-02-16] MEDS ORDERED: RIFA300C2 PO (14:38)
[2017-02-16 16:00] VITALS: BP 116/61; PULSE 94; RESP 16; TEMP 97.4; O2SAT 95
--- NOTE | 2017-02-16 16:48 | HHI.PR ---
Subjective Remarks Pt reports that her nausea has been better today She is drinking fluids but still not eating much. Afebrile Objective Vitals Vital Signs Date Time Temp Pulse Resp B/P Pulse Ox O2 Delivery O2 Flow Rate FiO2 02/16/17 12:00 98.4 82 16 117/61 97 02/16/17 08:00 96.7 82 17 120/69 95 02/16/17 00:00 97.9 84 18 112/61 94 02/15/17 20:00 99.5 98 18 130/61 94 02/15/17 02/15/17 02/16/17 14:59 22:59 06:59 Intake Total 540 ml 468 ml 1497 ml Output Total 700 ml 800 ml 2250 ml Balance -160 ml -332 ml -753 ml Intake Oral 540 ml 240 ml 480 ml IV Total 228 ml 1017 ml Output Urine Total 700 ml 800 ml 2250 ml # Bowel Movements 0 0 0 Result Diagram: 02/16/17 0725 02/16/17 0725 Other Results Laboratory Tests Test 02/14/17 02/15/17 02/16/17 17:41 05:36 07:25 Sodium Level 135 MEQ/L 135 MEQ/L 139 MEQ/L Potassium Level 3.2 MEQ/L 3.4 MEQ/L 3.6 MEQ/L Chloride Level 92 MEQ/L 93 MEQ/L 96 MEQ/L Carbon Dioxide Level 35.0 MEQ/L 34.4 MEQ/L 33.2 MEQ/L Anion Gap 8 MEQ/L 8 MEQ/L 10 MEQ/L Blood Urea Nitrogen 5 MG/DL 3 MG/DL 3 MG/DL Creatinine 0.52 MG/DL 0.45 MG/DL 0.36 MG/DL Estimat Glomerular Filtration 122 ML/MIN 144 ML/MIN 186 ML/MIN Rate Random Glucose 99 MG/DL 116 MG/DL 82 MG/DL Calcium Level 12.5 MG/DL 11.4 MG/DL 10.0 MG/DL Protein Corrected Calcium MG/DL Total Protein 4.8 GM/DL Phosphorus Level 1.9 MG/DL 2.5 MG/DL Magnesium Level 1.0 MG/DL 0.9 MG/DL White Blood Count 7.0 TH/MM3 Red Blood Count 2.84 MIL/MM3 Hemoglobin 8.6 GM/DL Hematocrit 25.8 % Mean Corpuscular Volume 90.9 FL Mean Corpuscular Hemoglobin 30.2 PG Mean Corpuscular Hemoglobin 33.2 % Concent Red Cell Distribution Width 15.5 % Platelet Count 497 TH/MM3 Mean Platelet Volume 7.1 FL Neutrophils (%) (Auto) 69.6 % Lymphocytes (%) (Auto) 9.3 % Monocytes (%) (Auto) 12.0 % Eosinophils (%) (Auto) 8.3 % Basophils (%) (Auto) 0.8 % Neutrophils # (Auto) 4.9 TH/MM3 Lymphocytes # (Auto) 0.7 TH/MM3 Monocytes # (Auto) 0.8 TH/MM3 Eosinophils # (Auto) 0.6 TH/MM3 Basophils # (Auto) 0.1 TH/MM3 CBC Comment DIFF FINAL Differential Comment Imaging Last Impressions Chest CT 02/15/17 0000 Signed Impressions: Service Date/Time: Wednesday, February 15, 2017 20:09 - CONCLUSION: Small pericardial effusion. No lung consolidation. Aeoxua-i-Bbmj tip in right atrium. Martin Fitzpatrick MD Abdomen/Pelvis CT 02/15/17 0000 Signed Impressions: Service Date/Time: Wednesday, February 15, 2017 20:09 - CONCLUSION: 1. 2cm circumscribed mass between the stomach and pancreas with rim calcification, possibly an old pseudocyst. 2. Moderate size fluid collection around the right hip prosthesis measuring up to about 3.5 cm in thickness posteriorly with some posterior calcifications. This could represent an old seroma. 3. Mild intrahepatic biliary ductal dilatation and extrahepatic bile duct dilatation to 13 mm. Martin Fitzpatrick MD Chest X-Ray 02/13/17 0600 Signed Impressions: Service Date/Time: Monday, February 13, 2017 06:04 - CONCLUSION: 1. No active disease. Ghlyeo-p-Keql tip in superior vena cava. Minimal basilar atelectasis or scarring. Martin Fitzpatrick MD Hip X-Ray 02/11/17 1800 Signed Impressions: Service Date/Time: January 18:44 - CONCLUSION: Anatomic alignment. Castro Hernández MD FACR Hip MRI 02/10/17 0000 Signed Impressions: Service Date/Time: Friday, February 10, 2017 19:58 - CONCLUSION: 1. Bilateral hip arthroplasties with pseudocapsule larger on the right than on the left. There are no findings to suggest abscess. 2. The pseudocapsule could be aspirated if clinically indicated Arvin Pimentel MD Last Impressions Hip MRI 02/10/17 0000 Signed Impressions: Service Date/Time: Friday, February 10, 2017 19:58 - CONCLUSION: 1. Bilateral hip arthroplasties with pseudocapsule larger on the right than on the left. There are no findings to suggest abscess. 2. The pseudocapsule could be aspirated if clinically indicated Arvin Pimentel MD Chest X-Ray 02/09/17 0000 Signed Impressions: Service Date/Time: Thursday, February 09, 2017 13:21 - CONCLUSION: No acute disease. 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 She then underwent revision right total hip replacement arthroplasty on 12/17/[address] Hoffmann and subsequently developed pain and drainage from the surgical site and was admitted in 12/2016 and underwent debridement/ irrigation of right hip total hip replacement with abx beads placement on 01/12/17 with retained infected prosthesis with Dr. Hoffmann. Pt was seen by ID at that time and was started on Rifampin and IV Cefazolin during that admission and this was continued for a recommended 6 week regimen. - Patient reported that this past weekend she started having high fevers as high as 102-103 degrees. - MRI Hip (02/10/17) --> Bilateral hip arthroplasties with pseudocapsule larger on the right than on the left. There are no findings to suggest abscess. The pseudocapsule could be aspirated if clinically indicated - Blood cultures with NGTD - Continue Cefazolin 2gram Q8H and Rifampin - Pt underwent I&D with exchange of liner and antibiotic beads on 02/[address] Hoffmann. There were multiple cultures obtained, 2 superficial and 2 were deep cultures. so far cx ngtd - Pt has had persistent fever of unknown origin. She has a vague AI dz and labeled dermatomyositis based on "aldolase/ck elevation" previous bx of right thigh inconclusive. She has been off immunosuppressives for a month and fever from this dz process was questioned but we have no definite proof. - On 02/14 pt was found to suddenly have hypercalcemia with associated hyponatremia/hypokalemia/hypomagnesemia. This could be related to poor po intake with n/v, but ?malignancy, ?immobility seems less likely. Pt has no hx of granulomatous dz or myeloma. - Pt was given calcitonin on 02/14 with a mild decrease in Ca to 11.4 and repeat labs today with improvement in the Ca to 10.0. - PTH intact is less than 2.5, PTH related peptide is pending. - TSH WNL - Vit D levels WNL, but low end of normal. - Cont. IVF - Replace electrolytes. - CT scan of Chest (02/15) --> Small pericardial effusion, no lung consolidation. - Ct Abd/pelvis (02/15) --> 2cm circumscribed mass between the stomach and pancreas with rim calcification, possibly an old pseudocyst. Moderate size fluid collection around the right hip prosthesis measuring up to about 3.5 cm in thickness posteriorly with some posterior calcifications. This could represent an old seroma. Mild intrahepatic biliary ductal dilatation and extrahepatic bile duct dilatation to 13 mm. - Check MRCP - Repeat CBC, CMP, Lipase, Mg+ in AM - Pt continues to have nausea/vomiting despite holding the Rifampin. Per ID cont. to hold Rifampin and cont. Cefazolin. - Xarelto resumed on 02/12 - Supportive care (2) Fever Status: Acute Plan: - See above. (3) Dermatomyositis Status: Chronic Plan: - Pt has been off all immunosuppression medications for at least the last month - Pt had rash on her UE which she thinks may be her dermatomyositis - Of note, she has a poorly defined autoimmune disease, currently labeled as dermatomyositis by her local Engineer Specialist but previous records indicated [facility] was not in agreement. The question was raised if pt has persistent fevers then perhaps this could be from the autoimmune dz. There is no clear test to clarify that but one would think a normal CK level and transaminases would indicate low disease activity. Although she does have some mild rash changes on forearms and shins. Resuming immunosuppressives at this time would be difficult. (4) Hypothyroidism Status: Chronic Plan: - Cont. home meds Assessment and Plan Patient examined. Assessment and plan formulated with Evelin Sunshine PA-C. I agree with the above. Evelin Sunshine February 16, 2017 16:48 Fredis Calhoun DO February 19, 2017 12:40
[2017-02-16] MEDS: RIVAROXABAN 10 MG TAB PO SCH (17:01)
[2017-02-16 20:00] VITALS: BP 118/58; PULSE 85; RESP 18; TEMP 99.2; O2SAT 94
[2017-02-16] MEDS: DOCUSATE SODIUM 50 MG/SENNA 8.6 MG TAB PO SCH (22:33)
[2017-02-17] VITALS: BP 118/62; PULSE 84; RESP 18; TEMP 98.1; O2SAT 95
[2017-02-17] MEDS: ceFAZolin 2 GM PREMIX 50 ML IV SCH ×3 (00:38→17:51)
[2017-02-17] MEDS: ACETAMINOPHEN/HYDROcodone 325 MG/10 MG TAB PO PRN ×4 (00:39→21:50)
[2017-02-17] MEDS: ALPRAZolam 0.5 MG TAB PO PRN ×3 (00:39→14:11)
[2017-02-17] MEDS: MORPHINE SULFATE 30 MG CONTROLLED RELEASE TAB PO SCH ×3 (02:27→17:49)
[2017-02-17 04:00] VITALS: BP 112/61; PULSE 91; RESP 18; TEMP 97.4; O2SAT 96
[2017-02-17] MEDS: PCA - TOTAL MG MORPHINE DELIVERED PER SHIFT SCH ×3 (04:45→21:55)
[2017-02-17 05:24] LABS: AUTOMATED NEUTROPHIL # 4.4 TH/MM3 (1.8-7.7); BASOPHIL # 0.1 TH/MM3 (0-0.2); BASOPHIL % 0.8 % (0.0-2.0); EOSINOPHIL # 0.6 TH/MM3 (0-0.4); EOSINOPHIL % 9.3 % (0.0-4.0); HEMATOCRIT 28.1 % (35.0-46.0); HEMO FLAGS DIFF FINAL; LYMPH % 11.3 % (9.0-44.0); LYMPHOCYTE # 0.7 TH/MM3 (1.0-4.8); MEAN CELL VOLUME 91.2 FL (80.0-100.0); MEAN CORPUSCULAR HGB CONC 32.9 % (32.0-36.0); MONO % 11.4 % (0.0-8.0); NEUT % 67.2 % (16.0-70.0); PLATELET COUNT 552 TH/MM3 (150-450); RED BLOOD COUNT 3.09 MIL/MM3 (4.00-5.30); RED CELL DISTRIBUTION WIDTH 15.8 % (11.6-17.2); WHITE BLOOD COUNT 6.6 TH/MM3 (4.0-11.0)
[2017-02-17 05:57] LABS: ALKALINE PHOSPHATASE 83 U/L (45-117); ALT (GPT) 8 U/L (10-53); ANION GAP 10 MEQ/L (5-15); AST (GOT) 20 U/L (15-37); BICARBONATE 31.8 MEQ/L (21.0-32.0); BLOOD UREA NITROGEN 4 MG/DL (7-18); CHLORIDE 95 MEQ/L (98-107); GLOMERULAR FILTRATION RATE 165 ML/MIN (>89); MAGNESIUM 0.8 MG/DL (1.5-2.5); SODIUM (NA) 137 MEQ/L (136-145); TOTAL BILIRUBIN ADULT 0.2 MG/DL (0.2-1.0)
[2017-02-17] MEDS: LEVOTHYROXINE SODIUM 88 MCG TAB PO SCH (06:56)
[2017-02-17 08:00] VITALS: BP 121/64; PULSE 93; RESP 16; TEMP 98.2; O2SAT 95
[2017-02-17] MEDS: PANTOPRAZOLE SOD 40 MG DELAYED RELEASE TAB PO SCH (08:17)
[2017-02-17] MEDS: SODIUM CHLORIDE 0.9% FLUSH 5 ML FLUSH IVF SCH ×2 (09:00→21:00)
[2017-02-17] MEDS ORDERED: GADODIAMIDE PF 287 MG/ML 20 ML VIAL (for RAD MRI) IV ONE (09:20)
[2017-02-17] MEDS: MAGNESIUM SULFATE 1 GM PREMIX 100 ML IV SCH ×6 (09:40→16:53)
--- NOTE | 2017-02-17 09:52 | RADRPT ---
EXAM DATE/TIME: 02/17/2017 08:51 [facility] COMPARISON: CT ABDOMEN & PELVIS W CONTRAST, February 15, 2017, 20:09. INDICATIONS : Diffuse abdomen pain, evaluate for mass. CONTRAST: 16 cc Omniscan (gadodiamide) IV MEDICAL HISTORY : Hypertension. Hypothyroidism. Dermomyocitis SURGICAL HISTORY : Hysterectomy. hip surgery, foot surgery, carpel tunnel ENCOUNTER: Subsequent ACUITY: 1 week PAIN SCORE: 3/10 LOCATION: abdomen TECHNIQUE: Multiplanar, multisequence magnetic resonance imaging of the abdomen was performed. High-resolution 3D dataset was utilized to reconstruct maximum-intensity projection (MIP) images. FINDINGS: INTRAHEPATIC BILE DUCTS: Within normal limits. No significant anatomical variant is present. EXTRAHEPATIC BILE DUCTS: Mild extrahepatic biliary ductal dilatation with common duct diameter of about 8 mm. No filling defec t or mass. GALLBLADDER: No stones, wall thickening, or pericholecystic fluid. LIVER: Minimal steatosis adjacent to the falciform ligament. No suspicious mass. PANCREAS: The main pancreatic duct is normal in size. There is no significant anatomical variant. Signal inte nsity is within normal limits. No mass is visualized. 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 This appears thrombosed. OTHER: The remaining visualized structures demonstrate no acute abnormality. CONCLUSION: Mild extrahepatic biliary ductal dilatation which appears to be improved from the comparison CT. Bryce Davidson MD on February 17, 2017 at 9:43 Board Certified Radiologist. This report was verified electronically.
[2017-02-17] MEDS: POTASSIUM CHLORIDE 10 MEQ CONTROLLED RELEASE TAB PO SCH ×2 (11:56→16:00)
[2017-02-17] MEDS: POTASSIUM CHLORIDE 20 MEQ CONTROLLED RELEASE TAB PO SCH ×2 (14:00→16:56)
--- NOTE | 2017-02-17 14:00 | HHI.PR ---
Subjective Remarks No new complaints. Objective Vitals Vital Signs Date Time Temp Pulse Resp B/P Pulse Ox O2 Delivery O2 Flow Rate FiO2 02/17/17 08:00 98.2 93 16 121/64 95 02/17/17 04:00 97.4 91 18 112/61 96 02/17/17 00:00 98.1 84 18 118/62 95 02/16/17 20:00 99.2 85 18 118/58 94 02/16/17 16:00 97.4 94 16 116/61 95 02/16/17 02/16/17 02/17/17 15:00 23:00 07:00 Intake Total 240 ml 320 ml 0 ml Output Total 750 ml 2250 ml 1100 ml Balance -510 ml -1930 ml -1100 ml Intake Oral 240 ml 320 ml 0 ml Output Urine Total 750 ml 2250 ml 1100 ml # Bowel Movements 0 0 0 Result Diagram: 02/17/17 0355 02/17/17 0355 Other Results Laboratory Tests Test 02/16/17 02/17/17 07:25 03:55 White Blood Count 7.0 TH/MM3 6.6 TH/MM3 Red Blood Count 2.84 MIL/MM3 3.09 MIL/MM3 Hemoglobin 8.6 GM/DL 9.2 GM/DL Hematocrit 25.8 % 28.1 % Mean Corpuscular Volume 90.9 FL 91.2 FL Mean Corpuscular Hemoglobin 30.2 PG 30.0 PG Mean Corpuscular Hemoglobin 33.2 % 32.9 % Concent Red Cell Distribution Width 15.5 % 15.8 % Platelet Count 497 TH/MM3 552 TH/MM3 Mean Platelet Volume 7.1 FL 7.2 FL Neutrophils (%) (Auto) 69.6 % 67.2 % Lymphocytes (%) (Auto) 9.3 % 11.3 % Monocytes (%) (Auto) 12.0 % 11.4 % Eosinophils (%) (Auto) 8.3 % 9.3 % Basophils (%) (Auto) 0.8 % 0.8 % Neutrophils # (Auto) 4.9 TH/MM3 4.4 TH/MM3 Lymphocytes # (Auto) 0.7 TH/MM3 0.7 TH/MM3 Monocytes # (Auto) 0.8 TH/MM3 0.7 TH/MM3 Eosinophils # (Auto) 0.6 TH/MM3 0.6 TH/MM3 Basophils # (Auto) 0.1 TH/MM3 0.1 TH/MM3 CBC Comment DIFF FINAL DIFF FINAL Differential Comment Sodium Level 139 MEQ/L 137 MEQ/L Potassium Level 3.6 MEQ/L 3.0 MEQ/L Chloride Level 96 MEQ/L 95 MEQ/L Carbon Dioxide Level 33.2 MEQ/L 31.8 MEQ/L Anion Gap 10 MEQ/L 10 MEQ/L Blood Urea Nitrogen 3 MG/DL 4 MG/DL Creatinine 0.36 MG/DL 0.40 MG/DL Estimat Glomerular Filtration 186 ML/MIN 165 ML/MIN Rate Random Glucose 82 MG/DL 103 MG/DL Calcium Level 10.0 MG/DL 10.8 MG/DL Phosphorus Level 2.5 MG/DL Magnesium Level 0.9 MG/DL 0.8 MG/DL Total Bilirubin 0.2 MG/DL Aspartate Amino Transf 20 U/L (AST/SGOT) Alanine Aminotransferase 8 U/L (ALT/SGPT) Alkaline Phosphatase 83 U/L Total Protein 5.3 GM/DL Albumin 2.0 GM/DL Lipase 132 U/L Imaging Last Impressions Cholangiopancreatography MRI 02/17/17 0000 Signed Impressions: Service Date/Time: Friday, February 17, 2017 08:51 - CONCLUSION: Mild extrahepatic biliary ductal dilatation which appears to be improved from the comparison CT. Bryce Davidson MD Chest CT 02/15/17 0000 Signed Impressions: Service Date/Time: Wednesday, February 15, 2017 20:09 - CONCLUSION: Small pericardial effusion. No lung consolidation. Dopevt-l-Cwtk tip in right atrium. Martin Fitzpatrick MD Abdomen/Pelvis CT 02/15/17 0000 Signed Impressions: Service Date/Time: Wednesday, February 15, 2017 20:09 - CONCLUSION: 1. 2cm circumscribed mass between the stomach and pancreas with rim calcification, possibly an old pseudocyst. 2. Moderate size fluid collection around the right hip prosthesis measuring up to about 3.5 cm in thickness posteriorly with some posterior calcifications. This could represent an old seroma. 3. Mild intrahepatic biliary ductal dilatation and extrahepatic bile duct dilatation to 13 mm. Martin Fitzpatrick MD Chest X-Ray 02/13/17 0600 Signed Impressions: Service Date/Time: Monday, February 13, 2017 06:04 - CONCLUSION: 1. No active disease. [id number] tip in superior vena cava. Minimal basilar atelectasis or scarring. Martin Fitzpatrick MD Hip X-Ray 02/11/17 1800 Signed Impressions: Service Date/Time: January 18:44 - CONCLUSION: Anatomic alignment. Castro Hernández MD FACR Hip MRI 02/10/17 0000 Signed Impressions: Service Date/Time: Friday, February 10, 2017 19:58 - CONCLUSION: 1. Bilateral hip arthroplasties with pseudocapsule larger on the right than on the left. There are no findings to suggest abscess. 2. 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 She then underwent revision right total hip replacement arthroplasty on 12/17/[address] Hoffmann and subsequently developed pain and drainage from the surgical site and was admitted in 12/2016 and underwent debridement/ irrigation of right hip total hip replacement with abx beads placement on 01/12/17 with retained infected prosthesis with Dr. Hoffmann. Pt was seen by ID at that time and was started on Rifampin and IV Cefazolin during that admission and this was continued for a recommended 6 week regimen. - Patient reported that this past weekend she started having high fevers as high as 102-103 degrees. - MRI Hip (02/10/17) --> Bilateral hip arthroplasties with pseudocapsule larger on the right than on the left. There are no findings to suggest abscess. The pseudocapsule could be aspirated if clinically indicated - Blood cultures with NGTD - Continue Cefazolin 2gram Q8H and Rifampin - Pt underwent I&D with exchange of liner and antibiotic beads on 02/[address] Hoffmann. There were multiple cultures obtained, 2 superficial and 2 were deep cultures. so far cx ngtd - Pt has been afebrile since 02/12 - Pt has had persistent fever of unknown origin. She has a vague AI dz and labeled dermatomyositis based on "aldolase/ck elevation" previous bx of right thigh inconclusive. She has been off immunosuppressives for a month and fever from this dz process was questioned but we have no definite proof. - On 02/14 pt was found to suddenly have hypercalcemia with associated hyponatremia/hypokalemia/hypomagnesemia. This could be related to poor po intake with n/v, but ?malignancy, ?immobility seems less likely. Pt has no hx of granulomatous dz or myeloma. - Pt was given calcitonin on 02/14 with a mild decrease in Ca to 11.4 and repeat labs on 02/16 with improvement in the Ca to 10.0. - Pts electrolyses have been very difficult to correct, despite given supplemental Magnesium and Potassium, levels are still low. Calcium level is rising again today. - PTH intact is less than 2.5, PTH related peptide is pending. - TSH WNL - Vit D levels WNL, but low end of normal. - CT scan of Chest (02/15) --> Small pericardial effusion, no lung consolidation. - CT Abd/pelvis (02/15) --> 2cm circumscribed mass between the stomach and pancreas with rim calcification, possibly an old pseudocyst. Moderate size fluid collection around the right hip prosthesis measuring up to about 3.5 cm in thickness posteriorly with some posterior calcifications. This could represent an old seroma. Mild intrahepatic biliary ductal dilatation and extrahepatic bile duct dilatation to 13 mm. - MRCP (02/17) --> Mild extrahepatic biliary ductal dilatation which appears to be improved from the comparison CT. 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 - Discussed the MRCP and CT findings with IR, Dr. 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 - Repeat CBC, CMP, Lipase, Mg+, Phosphorus in AM - Consult nephrology regarding her electrolyte abnormalities. - Pt continues to have nausea despite holding the Rifampin. Per ID the Rifampin will be resumed this evening. Cont. Cefazolin. - Xarelto resumed on 02/12 - Supportive care (2) Fever Status: Acute Plan: - See above. (3) Dermatomyositis Status: Chronic Plan: - Pt has been off all immunosuppression medications for at least the last month - Pt had rash on her UE which she thinks may be her dermatomyositis - Of note, she has a poorly defined autoimmune disease, currently labeled as dermatomyositis by her local [employer] but previous records indicated [facility] was not in agreement. The question was raised if pt has persistent fevers then perhaps this could be from the autoimmune dz. There is no clear test to clarify that but one would think a normal CK level and transaminases would indicate low disease activity. Although she does have some mild rash changes on forearms and shins. Resuming immunosuppressives at this time would be difficult. (4) Hypothyroidism Status: Chronic Plan: - Cont. home meds Assessment and Plan Patient examined. Assessment and plan formulated with Evelin Sunshine PA-C. I agree with the above. Evelin Sunshine February 17, 2017 14:00 Fredis Calhoun DO February 19, 2017 12:41
[2017-02-17] MEDS ORDERED: diphenhydrAMINE HCL 25 MG CAP PO PRN (14:15)
[2017-02-17 16:00] VITALS: BP 113/63; PULSE 91; RESP 16; TEMP 97.6; O2SAT 95
--- NOTE | 2017-02-17 16:42 | PD.CONS ---
[facility] Service Nephrology Consult Requested By Dr. Calhoun Reason for Consult Electrolyte abnormalities Primary Care Physician Jose Luis Moore MD History of Present Illness This is a 56 y/o female with a PMH listed below includes hypothyroidism and Inflammatory polyarthropathy/Dermatomyositis. She was on prednisone chronically but ran out of medications for several weeks. She was admitted on 02/09 following her orthopedic (Dr. Polanco) advice for infection of old right hip prosthesis.She has had multiple surgeries for the same in the past, and has been receiving IV rifampin and Ancef for 5-6 weeks at home prior to this. She reports very poor appetite for the past several weeks, barely eating anything. Her fluid intake has been adequate. On 02/11 she was taken to the OR for revision, I&D, removal of old antibiotic impregnated spacer, and placement of new calcium sulfate antimicrobial surface. Her renal function has been preserved this admission, but has had multiple electrolyte abnormalities since admission. Her potassium was 2.9 at lowest, is 3.0 today. She has had hypokalemia in the past. Calcium was 8.3 on arrival, increased to 12.5, was given one dose of calcitonin and today is 10.8. Her phosphorus was 1.9 improved to 2.5. Her magnesium was normal now is 1.8. She is awake, reports minimal activity aside from using bedside commode, which is unusual for her. She has no appetite, does not wish to begin appetite supplement. She is not on IVF or diuretics, had a gastric sleeve years ago and has been on Protonix since. We were consulted for electrolyte management. (Leandra Parker) Review of Systems Constitutional: COMPLAINS OF: Fatigue, DENIES: Fever, Chills Cardiovascular: DENIES: Chest pain Gastrointestinal: COMPLAINS OF: Anorexia Musculoskeletal: COMPLAINS OF: Joint pain, Muscle aches Psychiatric: DENIES: Anxiety (Leandra Parker) Past Family Social History Allergies: Coded Allergies: No Known Allergies (Unverified , 02/09/17) Past Medical History 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 Hypothyroidism Osteoarthritis Lymphedema Spina bifida Morbid obesity Past Surgical History Debridement/irrigation of right hip total hip replacement with abx beads placement on 4/18/17 with retained infected prosthesis with Dr. Hoffmann Revision right total hip replacement arthroplasty on 12/17/[address] Hoffmann Aspiration of right hip and manipulation under anesthesia on 11/22/[address] Hoffmann Laparoscopic vertical sleeve gastrectomy on 06/05/[address] Calderon Revision left total hip replacement arthroplasty on 10/25/[address] Hoffmann Examination of left hip under anesthesia/aspiration on 10/14/[address] Hoffmann [place] resurfacing arthroplasty of right hip around 8-10 years ago Hysterectomy Fasciotomy of the foot TMJ surgery Reported Medications Active Rifampin 300 Mg Cap 300 Mg PO BID 40 Days Xarelto (Rivaroxaban) 10 Mg Tab 10 Mg PO Q24H Oxycodone-Acetaminophen 5-325 mg Tab 1 Tab PO Q4H PRN Reported Morphine ER (Morphine Sulfate) 60 Mg Tab 90 Mg PO Q8H Duloxetine DR (Duloxetine HCl) 60 Mg Capdr 60 Mg PO HS Covaryx (Estrogens, Esterified-Methyltestosterone) 1.25-2.5 Mg Tab 1 Tab PO HS Synthroid (Levothyroxine Sodium) 88 Mcg Tab 88 Mcg PO DAILY Senna-S 8.6-50 mg (Sennosides-Docusate Sodium) 1 Tab Tab 1-3 Tab PO HS Rituxan Inj (Rituximab) 500 Mg/50 Ml Inj 1,000 Mg IV EVERY 8 WEEKS Prednisone 5 Mg Tab 8 Mg PO DAILY Take 1 tablet (5mg) with three 1mg tablets for a total dose of 8mg Protonix (Pantoprazole Sodium) 40 Mg Tab 40 Mg PO DAILY Otrexup Inj (Methotrexate Inj) 25 Mg/0.4 Ml Inj 25 Mg IM WEEKLY [place] (Hydrocodone-Acetaminophen) 10-325 Mg Tab 1 Tab PO Q4H PRN Doxepin Liq (Doxepin HCl) 10 Mg/Ml Conc 0.6 Ml PO HS Soma (Carisoprodol) 350 Mg Tab 350 Mg PO QID PRN Vitamin D3 (Cholecalciferol) 5,000 Unit Tab 5,000 Units PO HS Alprazolam 0.5 Mg Tab 0.5 Mg PO Q6H PRN Active Ordered Medications Current Medications Medications (Trade) Dose Ordered Sig/Sarah Route Start Time Stop Time Status Last Admin (Xanax) 0.5 mg Q6H PRN PO 02/09/17 15:45 02/17/17 14:11 (Soma) 350 mg QID PRN PO 02/09/17 15:45 02/16/17 13:25 (Synthroid) 88 mcg DAILY@0600 PO 02/10/17 06:00 02/17/17 06:56 (Oramorph Sr) 90 mg Q8H PO 02/09/17 17:00 02/17/17 08:17 (Sveta-Colace) 1 tab HS PO 02/09/17 21:00 02/16/17 22:33 (Tylenol) 650 mg Q4H PRN PO 02/09/17 16:00 02/12/17 10:09 (Ofirmev Inj) 1,000 mg Q6H PRN IV 02/09/17 16:30 (Rifampin) 300 mg BID PO 02/09/17 21:00 02/14/17 21:30 (Pill Splitter) 1 ea UNSCH PRN OTHER 02/10/17 10:30 (NS Flush) 2 ml UNSCH PRN IVF 02/11/17 18:00 (NS Flush) 2 ml BID IVF 02/11/17 21:00 02/17/17 09:00 Miscellaneous Information UNSCH PRN XX 02/11/17 18:00 ([place] 10-325 Mg) 1 tab Q4H PRN PO 02/11/17 18:00 02/12/17 03:44 ([place] 10-325 Mg) 2 tab Q6H PRN PO 02/11/17 18:00 02/17/17 15:50 (Mag-Al Plus Susp Liq) 30 ml Q6H PRN PO 02/11/17 18:00 (Narcan Inj) 0.4 mg UNSCH PRN IV 02/11/17 18:00 [employer]IAN Dosage Infused (Pha) 1 1 Q8HR .XX 02/11/17 22:00 02/12/17 14:00 (Ancef 2 Gm Premix) 50 ml @ 100 mls/hr Q8H IV 02/12/17 00:00 02/17/17 08:17 (Xarelto) 10 mg Q24H PO 02/12/17 18:00 02/16/17 17:01 Ondansetron HCl 4 mg 4 mg Q4H PRN IVP 02/14/17 12:00 02/16/17 18:08 (Magnesium Sulfate 1 Gm Premix) 100 ml @ 100 mls/hr Q1H IV 02/17/17 15:00 02/17/17 17:59 (KCl) 40 meq Q4H PO 02/17/17 14:00 02/17/17 18:01 (Benadryl) 25 mg Q6H PRN PO 02/17/17 14:15 02/17/17 15:36 (Pepcid) 20 mg DAILY PO 02/18/17 09:00 Family History no hx of renal disorders Social History non smoking no ETOH lives full code disabled (Leandra Parker) Physical Exam Vital Signs Vital Signs Date Time Temp Pulse Resp B/P Pulse Ox O2 Delivery O2 Flow Rate FiO2 02/17/17 08:00 98.2 93 16 121/64 95 02/17/17 04:00 97.4 91 18 112/61 96 02/17/17 00:00 98.1 84 18 118/62 95 02/16/17 20:00 99.2 85 18 118/58 94 Physical Exam Obese female awake/alert,oriented without neuro deficit S1/S2, regular rate and rhythm lungs clear in all [place] abdomen round, soft, non tender extremities without dependent edema, right hip tender to movement and has dressing in place Laboratory Laboratory Tests Test 02/17/17 03:55 White Blood Count 6.6 Red Blood Count 3.09 Hemoglobin 9.2 Hematocrit 28.1 Mean Corpuscular Volume 91.2 Mean Corpuscular Hemoglobin 30.0 Mean Corpuscular Hemoglobin 32.9 Concent Red Cell Distribution Width 15.8 Platelet Count 552 Mean Platelet Volume 7.2 Neutrophils (%) (Auto) 67.2 Lymphocytes (%) (Auto) 11.3 Monocytes (%) (Auto) 11.4 Eosinophils (%) (Auto) 9.3 Basophils (%) (Auto) 0.8 Neutrophils # (Auto) 4.4 Lymphocytes # (Auto) 0.7 Monocytes # (Auto) 0.7 Eosinophils # (Auto) 0.6 Basophils # (Auto) 0.1 CBC Comment DIFF FINAL Differential Comment Sodium Level 137 Potassium Level 3.0 Chloride Level 95 Carbon Dioxide Level 31.8 Anion Gap 10 Blood Urea Nitrogen 4 Creatinine 0.40 Estimat Glomerular Filtration 165 Rate Random Glucose 103 Calcium Level 10.8 Magnesium Level 0.8 Total Bilirubin 0.2 Aspartate Amino Transf 20 (AST/SGOT) Alanine Aminotransferase 8 (ALT/SGPT) Alkaline Phosphatase 83 Total Protein 5.3 Albumin 2.0 Lipase 132 Date/Time Procedure Status Source Growth 02/12/17 17:11 Aerobic Blood Culture - Final Complete Blood Peripheral NO GROWTH IN 5 DAYS 02/12/17 17:11 Anaerobic Blood Culture - Final Complete Blood Peripheral NO GROWTH IN 5 DAYS (Leandra Parker) Result Diagram: 02/17/17 0355 02/17/17 0355 Imaging Last Impressions Cholangiopancreatography MRI 02/17/17 0000 Signed Impressions: Service Date/Time: Friday, February 17, 2017 08:51 - CONCLUSION: Mild extrahepatic biliary ductal dilatation which appears to be improved from the comparison CT. Bryce Davidson MD Chest CT 02/15/17 0000 Signed Impressions: Service Date/Time: Wednesday, February 15, 2017 20:09 - CONCLUSION: Small pericardial effusion. No lung consolidation. Qcjvog-[id number]-Dded tip in right atrium. Martin Fitzpatrick MD Abdomen/Pelvis CT 02/15/17 0000 Signed Impressions: Service Date/Time: Wednesday, February 15, 2017 20:09 - CONCLUSION: 1. 2cm circumscribed mass between the stomach and pancreas with rim calcification, possibly an old pseudocyst. 2. Moderate size fluid collection around the right hip prosthesis measuring up to about 3.5 cm in thickness posteriorly with some posterior calcifications. This could represent an old seroma. 3. Mild intrahepatic biliary ductal dilatation and extrahepatic bile duct dilatation to 13 mm. Martin Fitzpatrick MD Chest X-Ray 02/13/17 0600 Signed Impressions: Service Date/Time: Monday, February 13, 2017 06:04 - CONCLUSION: 1. No active disease. Xugzfa-g-Lhjw tip in superior vena cava. Minimal basilar atelectasis or scarring. Martin Fitzpatrick MD Hip X-Ray 02/11/17 1800 Signed Impressions: Service Date/Time: January 18:44 - CONCLUSION: Anatomic alignment. Castro Hernández MD FACR Hip MRI 02/10/17 0000 Signed Impressions: Service Date/Time: Friday, February 10, 2017 19:58 - CONCLUSION: 1. Bilateral hip arthroplasties with pseudocapsule larger on the right than on the left. There are no findings to suggest abscess. 2. The pseudocapsule could be aspirated if clinically indicated Arvin Pimentel MD (Leandra Parker) Assessment and Plan Problem List: (1) Infection of right prosthetic hip joint Plan: ortho and ID are following s/p revision with I&D on 02/11 to be discharged on Cefazolin unitl March 26 follow up with ortho as scheduled (2) Hypokalemia Plan: suspected from poor nutritional intake, and low magnesium level continue to replace orally encourage oral food intake check 24 hr urine for K (3) Hypomagnesemia Plan: continue to replace PPI can worsen hypomagnesia, Protonix has been stopped check 24 hr urine for mag (4) Hypercalcemia Plan: improved from previous few days but remains elevated may be due to chronic immobility syndrome, orthopedic surgery/manipulation may have also contributed she was given calcitonin x 1 PTH is appropriately low vitamin D is normal monitor, check 24 hr urine calcium (5) Hypophosphatasia Plan: may be due poor dietary intake give one dose of Kphos oral continue to monitor check 24 hr urine for phosphorus (Leandra Parker) Problem List: (1) Infection of right prosthetic hip joint Plan: ortho and ID are following s/p revision with I&D on 02/11 to be discharged on Cefazolin unitl March 26 follow up with ortho as scheduled (2) Hypokalemia Plan: suspected from poor nutritional intake, and low magnesium level continue to replace orally encourage oral food intake check 24 hr urine for K (3) Hypomagnesemia Plan: continue to replace PPI can worsen hypomagnesia, Protonix has been stopped check 24 hr urine for mag (4) Hypercalcemia Plan: improved from previous few days but remains elevated may be due to chronic immobility syndrome, orthopedic surgery/manipulation may have also contributed she was given calcitonin x 1 PTH is appropriately low vitamin D is normal monitor, check 24 hr urine calcium (5) Hypophosphatasia Plan: may be due poor dietary intake give one dose of Kphos oral continue to monitor check 24 hr urine for phosphorus Assessment and Plan patient was seen and examined. She has unexplained metabolic alkalosis. Has hypokalemia, reports that she has had low potassium for a long time. Also is noted to have low Magnesium. May have renal wasting: Gitelman's syndrome? Obtain 24 hour urine for Calcium, potassium and Magnesium. Agree with stopping Protonix. Hypercalcemia is another issue: could have been due to chronic immobilization, improved. PTH not high. Hypophosphatemia: nutritional? refeeding? 24 hour urine collection ordered to rule out renal wasting. (Ean Roblero MD ) Leandra Parker [facility] February 17, 2017 16:42 Ean Roblero MD February 18, 2017 17:22
[2017-02-17] MEDS: RIVAROXABAN 10 MG TAB PO SCH (17:49)
[2017-02-17] MEDS ORDERED: POTASSIUM PHOSPHATE MONOBASIC 500 MG TAB PO ONE (18:00)
[2017-02-17 20:00] VITALS: BP 111/64; PULSE 90; RESP 18; TEMP 97.4; O2SAT 97
[2017-02-17] MEDS: DOCUSATE SODIUM 50 MG/SENNA 8.6 MG TAB PO SCH (21:00)
[2017-02-17] MEDS: RIFAMPIN 150 MG CAP PO SCH (21:51)
[2017-02-17] MEDS ORDERED: POTASSIUM CHLORIDE 10 MEQ CONTROLLED RELEASE TAB PO ONE (22:00)
[2017-02-17] MEDS: CARISOPRODOL 350 MG TAB PO PRN (22:00)
[2017-02-18] VITALS: BP 116/61; PULSE 83; RESP 18; TEMP 97.3; O2SAT 97
[2017-02-18] MEDS: ONDANSETRON HCL 4 MG/2 ML VIAL IVP PRN ×2 (00:59→09:40)
[2017-02-18] MEDS: MORPHINE SULFATE 30 MG CONTROLLED RELEASE TAB PO SCH ×3 (02:59→17:36)
[2017-02-18] MEDS: ceFAZolin 2 GM PREMIX 50 ML IV SCH ×3 (02:59→17:35)
[2017-02-18] MEDS: PCA - TOTAL MG MORPHINE DELIVERED PER SHIFT SCH ×3 (03:18→22:00)
[2017-02-18 05:33] LABS: BICARBONATE 33.2 MEQ/L (21.0-32.0); MAGNESIUM 1.3 MG/DL (1.5-2.5); POTASSIUM 3.8 MEQ/L (3.5-5.1)
[2017-02-18] MEDS: LEVOTHYROXINE SODIUM 88 MCG TAB PO SCH (06:00)
[2017-02-18 08:00] VITALS: BP 123/63; PULSE 92; RESP 18; TEMP 98.3; O2SAT 96
[2017-02-18] MEDS: RIFAMPIN 150 MG CAP PO SCH ×2 (08:45→22:20)
[2017-02-18] MEDS: SODIUM CHLORIDE 0.9% FLUSH 5 ML FLUSH IVF SCH ×2 (08:46→21:00)
[2017-02-18] MEDS: FAMOTIDINE 20 MG TAB PO SCH (08:47)
--- NOTE | 2017-02-18 10:14 | HHI.NPPN ---
Subjective Interval History She is doing okay. Ate some last night but did vomit today. Most electrolytes have corrected. (Leandra Parker) Review of Systems Gastrointestinal Gastrointestinal: Nausea & Vomiting GI Remarks anorexia (Leandra Parker) Musculoskeletal MS: Pain/Stiffness MS Remarks right hip (Leandra Parker) Objective Data Data 02/17/17 02/18/17 19:00 07:00 Intake Total 240 ml 600 ml Output Total 550 ml 1550 ml Balance -310 ml -950 ml Intake Oral 240 ml 600 ml Output Urine Total 550 ml 1550 ml # Bowel Movements 0 0 Vital Signs Date Time Temp Pulse Resp B/P Pulse Ox O2 Delivery O2 Flow Rate FiO2 02/18/17 08:00 98.3 92 18 123/63 96 02/18/17 00:00 97.3 83 18 116/61 97 02/17/17 20:00 97.4 90 18 111/64 97 02/17/17 16:00 97.6 91 16 113/63 95 (Leandra Parker) -: 02/17/17 0355 02/18/17 0440 Imaging Last Impressions Cholangiopancreatography MRI 02/17/17 0000 Signed Impressions: Service Date/Time: Friday, February 17, 2017 08:51 - CONCLUSION: Mild extrahepatic biliary ductal dilatation which appears to be improved from the comparison CT. Bryce Davidson MD Chest CT 02/15/17 0000 Signed Impressions: Service Date/Time: Wednesday, February 15, 2017 20:09 - CONCLUSION: Small pericardial effusion. No lung consolidation. [place]-l-Cxfb tip in right atrium. Martin Fitzpatrick MD Abdomen/Pelvis CT 02/15/17 0000 Signed Impressions: Service Date/Time: Wednesday, February 15, 2017 20:09 - CONCLUSION: 1. 2cm circumscribed mass between the stomach and pancreas with rim calcification, possibly an old pseudocyst. 2. Moderate size fluid collection around the right hip prosthesis measuring up to about 3.5 cm in thickness posteriorly with some posterior calcifications. This could represent an old seroma. 3. Mild intrahepatic biliary ductal dilatation and extrahepatic bile duct dilatation to 13 mm. Martin Fitzpatrick MD Chest X-Ray 02/13/17 0600 Signed Impressions: Service Date/Time: Monday, February 13, 2017 06:04 - CONCLUSION: 1. No active disease. Haszuj-c-Jbgl tip in superior vena cava. Minimal basilar atelectasis or scarring. Martin Fitzpatrick MD Hip X-Ray 02/11/17 1800 Signed Impressions: Service Date/Time: January 18:44 - CONCLUSION: Anatomic alignment. Castro Hernández MD FACR Hip MRI 02/10/17 0000 Signed Impressions: Service Date/Time: Friday, February 10, 2017 19:58 - CONCLUSION: 1. Bilateral hip arthroplasties with pseudocapsule larger on the right than on the left. There are no findings to suggest abscess. 2. The pseudocapsule could be aspirated if clinically indicated Arvin Pimentel MD (Leandra Parker B. [employer]) Physical Exam General Appearance: Well Developed, Well Nourished, Comfortable (Leandra Parker B. [employer]) Throat Throat Exam: Oral Mucosa [place] & Moist (Leandra Parker BVioletta [employer]) Pulmonary Resp Exam: Clear Bilaterally, Breath Sounds Equal Resp Remarks port left chest (Leandra Parker B. [employer]) Cardiology CV Exam: Regular, Normal Sinus Rhythm (Leandra Parker B. [employer]) Gastrointestinal/Abdomen GI Exam: Soft, Non-Tender, Bowel Sounds Present (Leandra Parker B. [employer]) Musculoskeletal MS Exam: Joints Intact, Normal Tone MS Remarks right hip pain with movement, dressing in place (Leandra Parker B. [employer]) Integumentary Skin Exam: Warm, Dry (Leandra Parker BVioletta [employer]) Extremeties Extremities Exam: No Edema, Pedal Pulses Palpable (Leandra Parker B. [employer]) Neurologic Neuro Exam: Alert, Awake, Oriented, Speech Clear, Moving All Extremities ( Leandra Parker B. [employer]) Assessment/Plan Discussed Condition With: Patient Electrolyte Assessment: Hypercalcemia, Hypokalemia, Hypomagnesemia Problem List: (1) Infection of right prosthetic hip joint Plan: ortho and ID are following s/p revision with I&D on 02/11 to be discharged on Cefazolin unitl March 26, also rifampin follow up with ortho as scheduled (2) Hypokalemia Plan: corrected with replacement oral intake has improved, she declines appetite stimulant Zofran prn nausea, avoid vomiting if possible check 24 hr urine for K (3) Hypomagnesemia Plan: continue to replace PPI can worsen hypomagnesia, Protonix has been stopped' check 24 hr urine for mag (4) Hypercalcemia Plan: improved suspected chronic immobility syndrome, orthopedic surgery/manipulation may have also contributed PTH is appropriately low vitamin D is normal monitor, 24 hr urine in process for calcium (5) Hypophosphatasia Plan: improved, may have been due to poor dietary intake continue to monitor , encourage eating 24 hr urine for phosphorus in process (Leandra Parker) Plan patient was seen and examined. She has unexplained metabolic alkalosis. Has hypokalemia, reports that she has had low potassium for a long time. Also is noted to have low Magnesium. May have renal wasting: Gitelman's syndrome? Obtain 24 hour urine for Calcium, potassium and Magnesium. Agree with stopping Protonix. Hypercalcemia is another issue: could have been due to chronic immobilization, improved. PTH not high. Hypophosphatemia: nutritional? refeeding? 24 hour urine collection ordered to rule out renal wasting. Start Slow-Mg for replacement. Needs outpatient followup. (Ean Roblero MD) Leandra Parker February 18, 2017 10:14 Ean Roblero MD February 18, 2017 17:23
[2017-02-18] MEDS: ACETAMINOPHEN/HYDROcodone 325 MG/10 MG TAB PO PRN ×2 (10:57→18:10)
[2017-02-18] MEDS: ALPRAZolam 0.5 MG TAB PO PRN ×2 (10:57→18:10)
[2017-02-18 12:00] VITALS: BP 109/61; PULSE 87; RESP 18; TEMP 95.6; O2SAT 96
--- NOTE | 2017-02-18 13:40 | HHI.IDPN ---
Subjective Subjective Remarks No fever feels muchj better yday tolerated Rifampin O, today emesis aafter rifampin Antibiotics cefazoline rifampin Allergies: Coded Allergies: No Known Allergies (Unverified , 02/09/17) Objective . Vital Signs Date Time Temp Pulse Resp B/P Pulse Ox O2 Delivery O2 Flow Rate FiO2 02/18/17 12:00 95.6 87 18 109/61 96 02/18/17 08:00 98.3 92 18 123/63 96 02/18/17 00:00 97.3 83 18 116/61 97 02/17/17 20:00 97.4 90 18 111/64 97 02/17/17 16:00 97.6 91 16 113/63 95 02/17/17 02/17/17 02/18/17 15:00 23:00 07:00 Intake Total 240 ml 240 ml 360 ml Output Total 550 ml 1225 ml 325 ml Balance -310 ml -985 ml 35 ml Intake Oral 240 ml 240 ml 360 ml Output Urine Total 550 ml 1225 ml 325 ml # Bowel Movements 0 0 0 . Laboratory Tests Test 02/17/17 03:55 White Blood Count 6.6 TH/MM3 Red Blood Count 3.09 MIL/MM3 Hemoglobin 9.2 GM/DL Hematocrit 28.1 % Mean Corpuscular Volume 91.2 FL Mean Corpuscular Hemoglobin 30.0 PG Mean Corpuscular Hemoglobin 32.9 % Concent Red Cell Distribution Width 15.8 % Platelet Count 552 TH/MM3 Mean Platelet Volume 7.2 FL Neutrophils (%) (Auto) 67.2 % Lymphocytes (%) (Auto) 11.3 % Monocytes (%) (Auto) 11.4 % Eosinophils (%) (Auto) 9.3 % Basophils (%) (Auto) 0.8 % Neutrophils # (Auto) 4.4 TH/MM3 Lymphocytes # (Auto) 0.7 TH/MM3 Monocytes # (Auto) 0.7 TH/MM3 Eosinophils # (Auto) 0.6 TH/MM3 Basophils # (Auto) 0.1 TH/MM3 CBC Comment DIFF FINAL Differential Comment Laboratory Tests Test 02/17/17 02/18/17 03:55 04:40 Sodium Level 137 MEQ/L 136 MEQ/L Potassium Level 3.0 MEQ/L 3.8 MEQ/L Chloride Level 95 MEQ/L 95 MEQ/L Carbon Dioxide Level 31.8 MEQ/L 33.2 MEQ/L Anion Gap 10 MEQ/L 8 MEQ/L Blood Urea Nitrogen 4 MG/DL 5 MG/DL Creatinine 0.40 MG/DL 0.48 MG/DL Estimat Glomerular Filtration 165 ML/MIN 133 ML/MIN Rate Random Glucose 103 MG/DL 102 MG/DL Calcium Level 10.8 MG/DL 9.2 MG/DL Magnesium Level 0.8 MG/DL 1.3 MG/DL Total Bilirubin 0.2 MG/DL Aspartate Amino Transf 20 U/L (AST/SGOT) Alanine Aminotransferase 8 U/L (ALT/SGPT) Alkaline Phosphatase 83 U/L Total Protein 5.3 GM/DL Albumin 2.0 GM/DL Lipase 132 U/L Phosphorus Level 3.6 MG/DL Imaging Last Impressions Cholangiopancreatography MRI 02/17/17 0000 Signed Impressions: Service Date/Time: Friday, February 17, 2017 08:51 - CONCLUSION: Mild extrahepatic biliary ductal dilatation which appears to be improved from the comparison CT. Bryce Davidson MD Chest CT 02/15/17 0000 Signed Impressions: Service Date/Time: Wednesday, February 15, 2017 20:09 - CONCLUSION: Small pericardial effusion. No lung consolidation. Xp[place]u-f-Ztge tip in right atrium. Martin Fitzpatrick MD Abdomen/Pelvis CT 02/15/17 0000 Signed Impressions: Service Date/Time: Wednesday, February 15, 2017 20:09 - CONCLUSION: 1. 2cm circumscribed mass between the stomach and pancreas with rim calcification, possibly an old pseudocyst. 2. Moderate size fluid collection around the right hip prosthesis measuring up to about 3.5 cm in thickness posteriorly with some posterior calcifications. This could represent an old seroma. 3. Mild intrahepatic biliary ductal dilatation and extrahepatic bile duct dilatation to 13 mm. Martin Fitzpatrick MD Chest X-Ray 02/13/17 0600 Signed Impressions: Service Date/Time: Monday, February 13, 2017 06:04 - CONCLUSION: 1. No active disease. Qdfrpr-w-Fhpf tip in superior vena cava. Minimal basilar atelectasis or scarring. Martin Fitzpatrick MD Hip X-Ray 02/11/17 1800 Signed Impressions: Service Date/Time: January 18:44 - CONCLUSION: Anatomic alignment. Castro Hernández MD FACR Hip MRI 02/10/17 0000 Signed Impressions: Service Date/Time: Friday, February 10, 2017 19:58 - CONCLUSION: 1. Bilateral hip arthroplasties with pseudocapsule larger on the right than on the left. There are no findings to suggest abscess. 2. The pseudocapsule could be aspirated if clinically indicated Arvin Pimentel MD Physical Exam CONSTITUTIONAL/GENERAL: This is an adequately nourished patient, in no distress PORT in place L chest, site looks OK SKIN: No jaundice, rash completely resolved EYES: Pupils equal and round and reactive. Extraocular motions intact. No scleral icterus. No injection or drainage. Fundi not examined. ENT: Oral mucosae without visible erythema, exudates, masses, or lesions. CARDIOVASCULAR: Regular rate and rhythm without murmurs, gallops, or rubs. No JVD. Peripheral pulses symmetric. RESPIRATORY/CHEST: Symmetric, unlabored respirations. Clear to auscultation. Breath sounds equal bilaterally. No wheezes, rales, or rhonchi. GASTROINTESTINAL: Abdomen soft, non-tender, nondistended. No hepato-splenomegaly , or palpable masses. No guarding. Bowel sounds present. MUSCULOSKELETAL: Extremities without clubbing, cyanosis, or edema. NEUROLOGICAL: Awake and alert. Motor and sensory grossly within normal limits. Follows commands. Moves all extremities. PSYCHIATRIC: No obvious anxiety/depression. no apparent hallucinations or other psychotic thought process. Assessment & Plan Remarks R prosthetic hip infx, MSSA and viridans strep sp revision in November sp debridement with abx beads placement today 01/12 with retained infected prosthesis - path results noted: severe inflammation Dermatomyosystis, off all immunosuppresants Rituxan (on hold since Sep), prednisone, MTX FUO - source?: fever completely resolved - eosinophilia - no urine eosinophils labs so far not sugg of sepsis or CTD flare up - Dermatomyositis dx in uncertain per reports from diff providers - rash is barely seen New onsert hypercalcemia - resolving - negative malignancy hector Nausea, vomiting: ( hypercalcemia vs rifampin) -will rifampin as tolerated - cont cefazoline x 6 wks - will count from the last sx since still very prominent inflammation - will need fu with Dr Hindsei - [phone] - [facility] resolution of other issues ABX DC RX: CEFAZOLINE 2 GM IV Q 8 HRS THRU MARCH 26 RIFAMPIN 300 MG PO BID THRU MARCH 26 - pt should only take rifampin on the days she is given cefazolin (or other effective abx), no monotherapy with rifampin 2./2 high risk of quickly acquired resistance LABS WEEKLY: CBC CMP ESR CRP dw pt dw Nga Nuñez MD February 18, 2017 13:39
--- NOTE | 2017-02-18 15:19 | HHI.PR ---
Subjective Remarks No new complaints. Objective Vitals Vital Signs Date Time Temp Pulse Resp B/P Pulse Ox O2 Delivery O2 Flow Rate FiO2 02/18/17 12:00 95.6 87 18 109/61 96 02/18/17 08:00 98.3 92 18 123/63 96 02/18/17 00:00 97.3 83 18 116/61 97 02/17/17 20:00 97.4 90 18 111/64 97 02/17/17 16:00 97.6 91 16 113/63 95 02/17/17 02/17/17 02/18/17 15:00 23:00 07:00 Intake Total 240 ml 240 ml 360 ml Output Total 550 ml 1225 ml 325 ml Balance -310 ml -985 ml 35 ml Intake Oral 240 ml 240 ml 360 ml Output Urine Total 550 ml 1225 ml 325 ml # Bowel Movements 0 0 0 Result Diagram: 02/17/17 0355 02/18/17 0440 Imaging Last Impressions Cholangiopancreatography MRI 02/17/17 0000 Signed Impressions: Service Date/Time: Friday, February 17, 2017 08:51 - CONCLUSION: Mild extrahepatic biliary ductal dilatation which appears to be improved from the comparison CT. Bryce Davidson MD Chest CT 02/15/17 0000 Signed Impressions: Service Date/Time: Wednesday, February 15, 2017 20:09 - CONCLUSION: Small pericardial effusion. No lung consolidation. Rhcvlo-q-Guid tip in right atrium. Martin Fitzpatrick MD Abdomen/Pelvis CT 02/15/17 0000 Signed Impressions: Service Date/Time: Wednesday, February 15, 2017 20:09 - CONCLUSION: 1. 2cm circumscribed mass between the stomach and pancreas with rim calcification, possibly an old pseudocyst. 2. Moderate size fluid collection around the right hip prosthesis measuring up to about 3.5 cm in thickness posteriorly with some posterior calcifications. This could represent an old seroma. 3. Mild intrahepatic biliary ductal dilatation and extrahepatic bile duct dilatation to 13 mm. Martin Fitzpatrick MD Chest X-Ray 02/13/17 0600 Signed Impressions: Service Date/Time: Monday, February 13, 2017 06:04 - CONCLUSION: 1. No active disease. Owbodo-w-Xunt tip in superior vena cava. Minimal basilar atelectasis or scarring. Martin Fitzpatrick MD Hip X-Ray 02/11/17 1800 Signed Impressions: Service Date/Time: January 18:44 - CONCLUSION: Anatomic alignment. Castro Hernández MD FACR Hip MRI 02/10/17 0000 Signed Impressions: Service Date/Time: Friday, February 10, 2017 19:58 - CONCLUSION: 1. Bilateral hip arthroplasties with pseudocapsule larger on the right than on the left. There are no findings to suggest abscess. 2. 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 She then underwent revision right total hip replacement arthroplasty on 12/17/[address] Hoffmann and subsequently developed pain and drainage from the surgical site and was admitted in 12/2016 and underwent debridement/ irrigation of right hip total hip replacement with abx beads placement on 01/12/17 with retained infected prosthesis with Dr. Hoffmann. Pt was seen by ID at that time and was started on Rifampin and IV Cefazolin during that admission and this was continued for a recommended 6 week regimen. - Patient reported that this past weekend she started having high fevers as high as 102-103 degrees. - MRI Hip (02/10/17) --> Bilateral hip arthroplasties with pseudocapsule larger on the right than on the left. There are no findings to suggest abscess. The pseudocapsule could be aspirated if clinically indicated - Blood cultures with NGTD - Continue Cefazolin 2gram Q8H and Rifampin - Pt underwent I&D with exchange of liner and antibiotic beads on 02/[address] Hoffmann. There were multiple cultures obtained, 2 superficial and 2 were deep cultures. so far cx ngtd - Pt has been afebrile since 02/12 - Pt has had persistent fever of unknown origin. She has a vague AI dz and labeled dermatomyositis based on "aldolase/ck elevation" previous bx of right thigh inconclusive. She has been off immunosuppressives for a month and fever from this dz process was questioned but we have no definite proof. - On 02/14 pt was found to suddenly have hypercalcemia with associated hyponatremia/hypokalemia/hypomagnesemia. This could be related to poor po intake with n/v, but ?malignancy, ?immobility seems less likely. Pt has no hx of granulomatous dz or myeloma. - Pt was given calcitonin on 02/14 with a mild decrease in Ca to 11.4 and repeat labs on 02/16 with improvement in the Ca to 10.0. - Pts electrolyses have been very difficult to correct, despite given supplemental Magnesium and Potassium, levels are still low. Calcium level is rising again today. - PTH intact is less than 2.5, PTH related peptide is pending. - TSH WNL - Vit D levels WNL, but low end of normal. - CT scan of Chest (02/15) --> Small pericardial effusion, no lung consolidation. - CT Abd/pelvis (02/15) --> 2cm circumscribed mass between the stomach and pancreas with rim calcification, possibly an old pseudocyst. Moderate size fluid collection around the right hip prosthesis measuring up to about 3.5 cm in thickness posteriorly with some posterior calcifications. This could represent an old seroma. Mild intrahepatic biliary ductal dilatation and extrahepatic bile duct dilatation to 13 mm. - MRCP (02/17) --> Mild extrahepatic biliary ductal dilatation which appears to be improved from the comparison CT. 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 - Discussed the MRCP and CT findings with IR, Dr. 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 - Repeat CBC, CMP, Lipase, Mg+, Phosphorus in AM - Appreciate Nephrology consultation regarding her electrolyte abnormalities. - - Pt continues to have nausea despite holding the Rifampin. Per ID the Rifampin will be resumed this evening. Cont. Cefazolin. - Xarelto resumed on 02/12 - Supportive care (2) Fever Status: Acute Plan: - See above. (3) Dermatomyositis Status: Chronic Plan: - Pt has been off all immunosuppression medications for at least the last month - Pt had rash on her UE which she thinks may be her dermatomyositis - Of note, she has a poorly defined autoimmune disease, currently labeled as dermatomyositis by her local Animal Control Officer but previous records indicated [facility] was not in agreement. The question was raised if pt has persistent fevers then perhaps this could be from the autoimmune dz. There is no clear test to clarify that but one would think a normal CK level and transaminases would indicate low disease activity. Although she does have some mild rash changes on forearms and shins. Resuming immunosuppressives at this time would be difficult. (4) Hypothyroidism Status: Chronic Plan: - Cont. home meds Assessment and Plan Patient examined. Assessment and plan formulated with Evelin Sunshine PA-C. I agree with the above. Evelin Sunshine February 18, 2017 15:19 Fredis Calhoun DO February 20, 2017 11:16
[2017-02-18 16:00] VITALS: BP 116/58; PULSE 95; RESP 18; TEMP 96.3; O2SAT 96
--- NOTE | 2017-02-18 16:59 | PD.ORT.PN ---
Subjective Subjective Remarks Patient appears comfortable. Pain under control. Objective Vitals Vital Signs Date Time Temp Pulse Resp B/P Pulse Ox O2 Delivery O2 Flow Rate FiO2 02/18/17 16:00 96.3 95 18 116/58 96 02/18/17 12:00 95.6 87 18 109/61 96 02/18/17 08:00 98.3 92 18 123/63 96 02/18/17 00:00 97.3 83 18 116/61 97 02/17/17 20:00 97.4 90 18 111/64 97 I/O 02/17/17 02/17/17 02/17/17 02/18/17 02/18/17 02/18/17 07:00 15:00 23:00 07:00 15:00 23:00 Intake Total 0 ml 240 ml 240 ml 360 ml 1490 ml Output Total 1100 ml 550 ml 1225 ml 325 ml 225 ml Balance -1100 ml -310 ml -985 ml 35 ml 1265 ml Intake Oral 0 ml 240 ml 240 ml 360 ml 1490 ml Output Urine Total 1100 ml 550 ml 1225 ml 325 ml 225 ml # Bowel Movements 0 0 0 0 1 Result Diagram: 02/17/17 0355 02/18/17 0440 Imaging Last 24 hours Impressions Hip X-Ray 02/11/17 1800 Signed Impressions: Service Date/Time: January 18:44 - CONCLUSION: Anatomic alignment. Castro Hernández MD FACR Objective Remarks Dressing dry. no Tenderness or abnormal swelling. neg homans nvi Assessment & Plan Assessment and Plan Infected revision right total hip replacement. IND with exchange of liner and antibiotic beads, POD #6. retained prosthesis with constrained liner PLAN: Previous culture showed strep with broad sensitivity. Weightbearing as tolerated Xarelto for 25 days Multiple cultures obtained at second I&D, all negative Antibiotics per infectious disease pending discharge home with iv abx per infectous disease spoke with nurse and correctional casework specialist, abx arrangements complete, pending medical clearence for discharge will follow up with Dr Ronni Hoffmann,Ronni Mata MD February 18, 2017 16:59
[2017-02-18] MEDS: RIVAROXABAN 10 MG TAB PO SCH (17:36)
[2017-02-18 19:34] LABS: POTASSIUM 24 HOUR URINE 68 MEQ/24HR (40-80); POTASSIUM TIMED URINE 30 MEQ/L
[2017-02-18 20:00] VITALS: BP 117/68; PULSE 89; RESP 18; TEMP 97.4; O2SAT 98
[2017-02-18] MEDS: MAGNESIUM CHLORIDE 64 MG TAB PO SCH (22:20)
[2017-02-18] MEDS: DOCUSATE SODIUM 50 MG/SENNA 8.6 MG TAB PO SCH (22:20)
[2017-02-19] VITALS: BP 121/68; PULSE 90; RESP 18; TEMP 97.5; O2SAT 96
[2017-02-19] MEDS: ceFAZolin 2 GM PREMIX 50 ML IV SCH ×2 (00:55→07:34)
[2017-02-19] MEDS: ACETAMINOPHEN/HYDROcodone 325 MG/10 MG TAB PO PRN ×3 (00:55→14:40)
[2017-02-19] MEDS: CARISOPRODOL 350 MG TAB PO PRN ×3 (00:55→14:39)
[2017-02-19 01:48] LABS: CALCIUM - URINE TIMED 21.5 MG/DL
[2017-02-19] MEDS: MORPHINE SULFATE 30 MG CONTROLLED RELEASE TAB PO SCH ×2 (01:55→07:35)
[2017-02-19] MEDS: ONDANSETRON HCL 4 MG/2 ML VIAL IVP PRN (01:58)
[2017-02-19] MEDS: LEVOTHYROXINE SODIUM 88 MCG TAB PO SCH (05:22)
[2017-02-19 06:12] LABS: BICARBONATE 30.7 MEQ/L (21.0-32.0); MAGNESIUM 1.4 MG/DL (1.5-2.5); POTASSIUM 3.5 MEQ/L (3.5-5.1)
[2017-02-19] MEDS: RIFAMPIN 150 MG CAP PO SCH ×2 (07:35→09:00)
[2017-02-19] MEDS: MAGNESIUM CHLORIDE 64 MG TAB PO SCH (07:35)
[2017-02-19] MEDS: SODIUM CHLORIDE 0.9% FLUSH 5 ML FLUSH IVF SCH (07:35)
[2017-02-19] MEDS: FAMOTIDINE 20 MG TAB PO SCH (07:36)
[2017-02-19 08:00] VITALS: BP 116/64; PULSE 87; RESP 18; TEMP 96.8; O2SAT 97
--- NOTE | 2017-02-19 08:05 | PD.ORT.PN ---
Subjective Subjective Remarks Patient appears comfortable. Pain under control. Sitting in bed comfortably. She indicates that she might be able to go home today Objective Vitals Vital Signs Date Time Temp Pulse Resp B/P Pulse Ox O2 Delivery O2 Flow Rate FiO2 02/19/17 00:00 97.5 90 18 121/68 96 02/18/17 20:00 97.4 89 18 117/68 98 02/18/17 16:00 96.3 95 18 116/58 96 02/18/17 12:00 95.6 87 18 109/61 96 I/O 02/18/17 02/18/17 02/18/17 02/19/17 02/19/17 02/19/17 07:00 15:00 23:00 07:00 15:00 23:00 Intake Total 360 ml 1490 ml 240 ml 340 ml Output Total 325 ml 525 ml 625 ml 825 ml Balance 35 ml 965 ml -385 ml -485 ml Intake Oral 360 ml 1490 ml 240 ml 240 ml IV Total 0 ml 100 ml Output Urine Total 325 ml 525 ml 625 ml 825 ml # Bowel Movements 0 1 0 0 Result Diagram: 02/17/17 0355 02/19/17 0530 Imaging Last 24 hours Impressions Hip X-Ray 02/11/17 1800 Signed Impressions: Service Date/Time: January 18:44 - CONCLUSION: Anatomic alignment. Castro Hernández MD FACR Objective Remarks Dressing is dry. Mild swelling. No significant warmth or redness. No drainage Assessment & Plan Ortho Post Op Day #: 8 Problem List: Assessment and Plan Infected revision right total hip replacement. I/D with exchange of liner and antibiotic beads, POD #8. retained prosthesis with constrained liner PLAN: Previous culture showed strep with broad sensitivity. Weightbearing as tolerated Xarelto for 25 days Multiple cultures obtained at second I&D, all negative Antibiotics per infectious disease pending discharge home with iv abx per infectous disease pending medical clearence for discharge will follow up next week Ronni Hoffmann MD February 19, 2017 08:04
[2017-02-19 12:00] VITALS: BP 107/62; PULSE 88; RESP 18; TEMP 97.1; O2SAT 97
--- NOTE | 2017-02-19 12:29 | HHI.FF ---
Face to Face Verification Diagnosis: (1) Failed total joint replacement (2) Infection of right prosthetic hip joint (3) Right hip pain Home Health Nursing Order: Medical education Signs/symptoms of disease process Medication education-adverse effect IV medication administration Instructions: Cefazolin q8h thru 03/26/17 with PO rifampin I have seen patient Verónica Brandt on 02/19/17. My clinical findings support the need for the requested home health care services because: Ltd mobility - disease progression Need for psychosocial assistance Injectable med education/admin I certify that my clinical findings support that this patient is homebound because: Need for psychosocial assistance Unable to use public transportation Fredis Calhoun DO February 19, 2017 12:29
[2017-02-19] MEDS ORDERED: MAGN64 PO (12:36)
[2017-02-19] MEDS ORDERED: FAMO20TA2 PO (12:36)
[2017-02-19] MEDS ORDERED: XARE10TA PO (12:36)
--- NOTE | 2017-02-19 13:04 | HHI.DS ---
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 Ronni Spangler, Orthopedica Surgeon Dr. Ean Roblero, Nephrology Brief History Ms. Brandt is a 56 y/o WF with autoimmune disease/Dermatomyositis previously on immunosuppressive therapy, who has been having issues more recently with right hip infection. 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 She then underwent revision right total hip replacement arthroplasty on 12/17/[address] Hoffmann. She developed pain and drainage from the surgical site and was admitted in 12/2016 and underwent debridement/irrigation of right hip total hip replacement with abx beads placement on 01/12/17 with retained infected prosthesis with Dr. Hoffmann. Pt was seen by ID at that time and was started on Rifampin and IV Cefazolin during that admission and this was continued for a recommended 6 week regimen. Patient reports that this past weekend on Wednesday she started having high fevers as high as 102. Per patient yesterday and the fever went as high as 103. Fever does improve with Tylenol or ibuprofen and currently she has no fever she did took some Tylenol earlier today. Per patient she contacted Dr. Polanco's office yesterday and they recommended that she comes to the ED but she at the time declined. She was able to keep down the fever and continue her medications and today her fever came back as high as 103 and she took a medication which brought it down but she contacted her doctor who told her to come here. She states that today she is having a little more pain on her right hip which feels like a burning but is unclear if this is because she slept wrong on it. Per patient she has no cough, congestion or runny nose. Per patient when she gets the fever she gets lost chills and sweats and sometimes she gets dry heaving. She reports that she has been drinking fluids well at home but has not been eating much of anything because any solid food tastes horrible to her since she has been on the antibiotics. She has been off all of her immunosuppressive medications for at least the last month. CBC/BMP: 02/17/17 0355 02/19/17 0530 Significant Findings Laboratory Tests Test 02/17/17 02/18/17 02/18/17 02/19/17 03:55 04:40 18:12 05:30 Red Blood Count 3.09 MIL/MM3 (4.00-5.30) Hemoglobin 9.2 GM/DL (11.6-15.3) Hematocrit 28.1 % (35.0-46.0) Platelet Count 552 TH/MM3 (150-450) Monocytes (%) (Auto) 11.4 % (0.0-8.0) Eosinophils (%) (Auto) 9.3 % (0.0-4.0) Lymphocytes # (Auto) 0.7 TH/MM3 (1.0-4.8) Eosinophils # (Auto) 0.6 TH/MM3 (0-0.4) Potassium Level 3.0 MEQ/L (3.5-5.1) Chloride Level 95 MEQ/L 95 MEQ/L 97 MEQ/L (98-107) (98-107) (98-107) Blood Urea Nitrogen 4 MG/DL (7-18) 5 MG/DL (7-18) 6 MG/DL (7-18) Creatinine 0.40 MG/DL 0.48 MG/DL 0.48 MG/DL (0.50-1.00) (0.50-1.00) (0.50-1.00) Calcium Level 10.8 MG/DL (8.5-10.1) Magnesium Level 0.8 MG/DL 1.3 MG/DL 1.4 MG/DL (1.5-2.5) (1.5-2.5) (1.5-2.5) Alanine Aminotransferase 8 U/L (10-53) (ALT/SGPT) Total Protein 5.3 GM/DL (6.4-8.2) Albumin 2.0 GM/DL (3.4-5.0) Carbon Dioxide Level 33.2 MEQ/L (21.0-32.0) Urine Calcium 24 Hour 484 MG/24HR (42-353) Random Glucose 112 MG/DL (74-106) Imaging Last Impressions Cholangiopancreatography MRI 02/17/17 0000 Signed Impressions: Service Date/Time: Friday, February 17, 2017 08:51 - CONCLUSION: Mild extrahepatic biliary ductal dilatation which appears to be improved from the comparison CT. Bryce Davidson MD Chest CT 02/15/17 0000 Signed Impressions: Service Date/Time: Wednesday, February 15, 2017 20:09 - CONCLUSION: Small pericardial effusion. No lung consolidation. [id number] tip in right atrium. Martin Fitzpatrick MD Abdomen/Pelvis CT 02/15/17 0000 Signed Impressions: Service Date/Time: Wednesday, February 15, 2017 20:09 - CONCLUSION: 1. 2cm circumscribed mass between the stomach and pancreas with rim calcification, possibly an old pseudocyst. 2. Moderate size fluid collection around the right hip prosthesis measuring up to about 3.5 cm in thickness posteriorly with some posterior calcifications. This could represent an old seroma. 3. Mild intrahepatic biliary ductal dilatation and extrahepatic bile duct dilatation to 13 mm. Martin Fitzpatrick MD Chest X-Ray 02/13/17 0600 Signed Impressions: Service Date/Time: Monday, February 13, 2017 06:04 - CONCLUSION: 1. No active disease. [id number] tip in superior vena cava. Minimal basilar atelectasis or scarring. Martin Fitzpatrick MD Hip X-Ray 02/11/17 1800 Signed Impressions: Service Date/Time: January 18:44 - CONCLUSION: Anatomic alignment. Castro Hernández MD FACR Hip MRI 02/10/17 0000 Signed Impressions: Service Date/Time: Friday, February 10, 2017 19:58 - CONCLUSION: 1. Bilateral hip arthroplasties with pseudocapsule larger on the right than on the left. There are no findings to suggest abscess. 2. 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 She then underwent revision right total hip replacement arthroplasty on 12/17/[address] Hoffmann and subsequently developed pain and drainage from the surgical site and was admitted in 12/2016 and underwent debridement/ irrigation of right hip total hip replacement with abx beads placement on 01/12/17 with retained infected prosthesis with Dr. Hoffmann. Pt was seen by ID at that time and was started on Rifampin and IV Cefazolin during that admission and this was continued for a recommended 6 week regimen. - Patient reported that during weekend prior to admission she started having high fevers as high as 102-103 degrees. - MRI Hip (02/10/17) --> Bilateral hip arthroplasties with pseudocapsule larger on the right than on the left. There are no findings to suggest abscess. The pseudocapsule could be aspirated if clinically indicated - Blood cultures with NGTD - Continue Cefazolin 2gram Q8H and Rifampin thru 03/26/17 per ID recommendations , arrangement [facility] with [facility] - Pt underwent I&D with exchange of liner and antibiotic beads on 02/[address] Hoffmann. There were multiple cultures obtained, 2 superficial and 2 were deep cultures. No growth. - Pt has been afebrile since 02/12 - Pt has had persistent fever of unknown origin. She has a vague AI dz and labeled dermatomyositis based on "aldolase/ck elevation" previous bx of right thigh inconclusive. She has been off immunosuppressives for a month and fever from this dz process was questioned but we have no definite proof. - On 02/14 pt was found to suddenly have hypercalcemia with associated hyponatremia/hypokalemia/hypomagnesemia. This could be related to poor po intake with n/v, but ?malignancy, ?immobility seems less likely. Pt has no hx of granulomatous dz or myeloma. - NO indication of malignancy. - Pt underwent CT of chest/abd/pelvis (02/15/17) - CT abd noted circumscribed mass between the stomach and pancrease - MRCP (02/16/17) - area of circumscribed mass which was identified on the CT was felt to represent a 2cm splenic artery aneurysm with thrombosis - Will NOT pursue further w/u or treatment of above at this time - Pt was given calcitonin on 02/14 with a mild decrease in Ca to 11.4 and repeat labs on 02/16 with improvement in the Ca to 10.0. - Pts electrolyses have been very difficult to correct - Pt seen in consultation by Nephrology, Dr. Ean Roblero - Pt noted to have an unexplained metabolic alkalosis along with hypokalemia and hypomagnesemia. 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 - TSH WNL - Vit D levels WNL, but low end of normal. will start supplementation - CT scan of Chest (02/15) --> Small pericardial effusion, no lung consolidation. - CT Abd/pelvis (02/15) --> 2cm circumscribed mass between the stomach and pancreas with rim calcification, possibly an old pseudocyst. Moderate size fluid collection around the right hip prosthesis measuring up to about 3.5 cm in thickness posteriorly with some posterior calcifications. This could represent an old seroma. Mild intrahepatic biliary ductal dilatation and extrahepatic bile duct dilatation to 13 mm. - MRCP (02/17) --> Mild extrahepatic biliary ductal dilatation which appears to be improved from the comparison CT. 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 - Discussed the MRCP and CT findings with IR, Dr. 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 - Xarelto resumed on 02/12, will continue for 25 days total - f/u with Dr. Spangler in 1 week - f/u with Dr. Roblero in 2 weeks - f/u with PCP, Dr. Moore in 1 week (2) Fever Status: Acute Plan: - See above. (3) Dermatomyositis Status: Chronic Plan: - Pt has been off all immunosuppression medications for at least the last month - Pt had rash on her UE which she thinks may be her dermatomyositis - Of note, she has a poorly defined autoimmune disease, currently labeled as dermatomyositis by her local [employer] but previous records indicated [facility] was not in agreement. The question was raised if pt has persistent fevers then perhaps this could be from the autoimmune dz. There is no clear test to clarify that but one would think a normal CK level and transaminases would indicate low disease activity. Although she does have some mild rash changes on forearms and shins. Resuming immunosuppressives at this time would be difficult. (4) Hypothyroidism Status: Chronic Plan: - Cont. home meds Pt Condition on Discharge: Stable Discharge Disposition: Disch w/ Home Health Serv Discharge Instructions DIET: Follow Instructions for: As Tolerated, No Restrictions Activities you can perform: Regular-No Restrictions Follow up Referrals: Nephrology - [address] Ean Roblero Orthopedics - 1 Week with Ronni Hoffmann MD PCP Follow-up - [address] Jose Luis Moore New Medications: Cefazolin Inj (Cefazolin Inj) 2 Gm/50 Ml Bagp 2 GM IV Q8H Infection Days 37 Ref 0 BAG Cholecalciferol (Vitamin D) 400 Unit Cap 400 UNIT PO DAILY vitamin d def #30 Ref 0 UNIT Epinephrine Inj (Epinephrine Inj) 1 Mg/Ml Inj 0.3 MG IV PUSH ONCE PRN ALLERGIC REACTION #1 VIAL Epinephrine Inj (Epinephrine Inj) 1 Mg/Ml Inj 0.3 MG SQ ONCE Give with any signs of respiratory distress. PRN ALLERGIC REACTION #1 VIAL Hydrocortisone Inj (Solu-Cortef Inj) 250 Mg Inj 250 MG IV PUSH ONCE Give over 30-60 seconds. PRN ALLERGIC REACTION #1 Ref 0 VIAL Ondansetron (Zofran) 4 Mg Tab 4 MG PO Q6HR PRN NAUSEA OR VOMITING #15 Ref 0 TAB Rifampin (Rifampin) 300 Mg Cap 300 MG PO BID Infection Days 37 Ref 0 CAP Famotidine (Famotidine) 20 Mg Tab 20 MG PO DAILY GERD #30 TAB Magnesium Chloride (Mag64) 64 Mg Tab 64 MG PO Q12HR hypomagnesemia #60 Ref 0 TAB Rivaroxaban (Xarelto) 10 Mg Tab 10 MG PO Q24H anticoagulation #18 Ref 0 TAB Continued Medications: Alprazolam (Alprazolam) 0.5 Mg Tab 0.5 MG PO Q6H PRN ANXIETY Ref 0 TAB Carisoprodol (Soma) 350 Mg Tab 350 MG PO QID PRN PAIN Ref 0 TAB Cholecalciferol (Vitamin D3) 5,000 Unit Tab 5000 UNITS PO HS Nutritional Supplement #1 Ref 0 BOTTLE Estrogens, Esterified-Methyltestosterone (Covaryx) 1.25-2.5 Mg Tab 1 TAB PO HS Hydrocodone-Acetaminophen ([place]) 10-325 Mg Tab 1 TAB PO Q4H PRN BREAKTHROUGH PAIN Ref 0 TAB Levothyroxine (Synthroid) 88 Mcg Tab 88 MCG PO DAILY Thyroid #30 Ref 0 TAB Morphine ER (Morphine ER) 60 Mg Tab 90 MG PO Q8H Pain Management Ref 0 TAB Rifampin (Rifampin) 300 Mg Cap 300 MG PO BID Infection Days 40 Ref 0 CAP Sennosides-Docusate Sodium (Senna-S 8.6-50 mg) 1 Tab Tab 1-3 TAB PO HS Discontinued Medications: Pantoprazole (Protonix) 40 Mg Tab 40 MG PO DAILY Reflux #30 Ref 0 TAB Fredis Calhoun DO February 19, 2017 13:04 Fredis Calhoun DO February 19, 2017 13:04
[2017-02-19] MEDS ORDERED: VITA400C28 PO (13:07)
[2017-02-19] MEDS ORDERED: ZOFR4TAB PO (13:07)
--- NOTE | 2017-02-19 13:22 | HHI.FF ---
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 My clinical findings support the need for the requested home health care services because: Ltd mobility - disease progression Deconditioned w/ increased weakness Med compliance is questionable Limited ability to care for self Need for psychosocial assistance Infection w/ risk of complications Injectable med education/admin I certify that my clinical findings support that this patient is homebound because: Impaired cognitive ability/safety Unsteady gait/balance Unsafe to leave home unassisted Need for psychosocial assistance Unable to use public transportation Frdeis Calhoun DO February 19, 2017 13:22
--- NOTE | 2017-02-19 14:03 | HHI.NPPN ---
Subjective Interval History She feels better today. Oral intake has improved. To be discharged today. ( Leandra Parker) Review of Systems Gastrointestinal Gastrointestinal: Nausea & Vomiting GI Remarks anorexia (Leandra Parker) Musculoskeletal MS: Pain/Stiffness MS Remarks right hip (Leandra Parker) Objective Data Data 02/18/17 02/19/17 19:00 07:00 Intake Total 1490 ml 580 ml Output Total 525 ml 1450 ml Balance 965 ml -870 ml Intake Oral 1490 ml 480 ml IV Total 100 ml Output Urine Total 525 ml 1450 ml # Bowel Movements 1 0 Vital Signs Date Time Temp Pulse Resp B/P Pulse Ox O2 Delivery O2 Flow Rate FiO2 02/19/17 12:00 97.1 88 18 107/62 97 02/19/17 08:00 96.8 87 18 116/64 97 02/19/17 00:00 97.5 90 18 121/68 96 02/18/17 20:00 97.4 89 18 117/68 98 02/18/17 16:00 96.3 95 18 116/58 96 (Leandra Parker) -: 02/17/17 0355 02/19/17 0530 Physical Exam General Appearance: Well Developed, Well Nourished, No Acute Distress, Comfortable ( Leandra Parker) Throat Throat Exam: Oral Mucosa [place] & Moist (Leandra Parker) Pulmonary Resp Exam: Clear Bilaterally, Breath Sounds Equal Resp Remarks port left chest (Leandra Parker) Cardiology CV Exam: Regular, Normal Sinus Rhythm (Leandra Parker) Gastrointestinal/Abdomen GI Exam: Soft, Non-Tender, Bowel Sounds Present (Leandra Parker) Musculoskeletal MS Exam: Joints Intact, Normal Tone MS Remarks right hip pain with movement, dressing in place (Leandra Parker) Integumentary Skin Exam: Warm, Dry (Leandra Parker) Extremeties Extremities Exam: No Edema, Pedal Pulses Palpable (Leandra Parker) Neurologic Neuro Exam: Alert, Awake, Oriented, Speech Clear, Moving All Extremities ( Leandra Parker) Assessment/Plan Discussed Condition With: Patient Electrolyte Assessment: Hypercalcemia, Hypokalemia, Hypomagnesemia Problem List: (1) Infection of right prosthetic hip joint Plan: ortho and ID have following s/p revision with I&D on 02/11 to be discharged on Cefazolin unitl March 26 follow up with ortho as scheduled (2) Hypokalemia Plan: corrected, suspected from poor nutritional intake, and low magnesium level encouraged oral food intake after discharge 24 hr urine not consistent with potassium wasting (3) Hypomagnesemia Plan: continue to replace , ordered slow Mag PPI can worsen hypomagnesia, Protonix has been stopped we will follow up outpatient (4) Hypercalcemia Plan: improved, felt to be due to chronic immobility syndrome, orthopedic surgery/manipulation may have also contributed PTH is appropriately low vitamin D is normal 24 hr urine for calcium was appropriately elevated repeat test in outpatient setting (5) Hypophosphatasia Plan: corrected, due to poor dietary intake Plan She has unexplained metabolic alkalosis. with multiple electrolyte disorders, May have renal wasting: Gitelman's syndrome ? she is stable for discharge today continue Mag replacement, we will see her in one month in clinic. repeat 24 hr urine for electrolytes. (Leandra Parker) Plan patient was seen and examined. Agree with above assessment and plan. Followup in office for completion of workup. (Ean Roblero MD) Leandra Parker February 19, 2017 14:03 Ean Roblero MD February 19, 2017 15:44
[2017-02-20 06:44] LABS: PHOSPHORUS CONCENTRATION 3.5 mg/dL (())
== END 2017-02-19 15:20 | disposition home health service (06) | DRG 467 ==
LOC: NEPE 11:46 → NEDA 13:40 → N07A 16:45
PROVIDERS: ADMIT Hospitalist; ATTEND Hospitalist
PROC: 0SUA09Z Supplement Right Hip Joint, Acetabular Surface with Liner, Open Approach (ICD-10-PCS; 2017-02-11)
PROC: 0SR90JZ Replacement of Right Hip Joint with Synthetic Substitute, Open Approach (ICD-10-PCS; 2017-02-11)
PROC: 0SP90JZ Removal of Synthetic Substitute from Right Hip Joint, Open Approach (ICD-10-PCS; 2017-02-11)
PROC: 3E0U029 Introduction of Other Anti-infective into Joints, Open Approach (ICD-10-PCS; 2017-02-11)
PROC: 0SP909Z Removal of Liner from Right Hip Joint, Open Approach (ICD-10-PCS; principal; 2017-02-11 14:45)
DX: T84.51XA Infection and inflammatory reaction due to internal right hip prosthesis, initial encounter (principal); M33.90 Dermatopolymyositis, unspecified, organ involvement unspecified; E87.3 Alkalosis; I31.3 Pericardial effusion (noninflammatory); D72.1 Eosinophilia; E87.1 Hypo-osmolality and hyponatremia; I72.8 Aneurysm of other specified arteries; E83.42 Hypomagnesemia; E83.39 Other disorders of phosphorus metabolism; E83.52 Hypercalcemia; I10 Essential (primary) hypertension; Q05.9 Spina bifida, unspecified; E03.9 Hypothyroidism, unspecified; E87.6 Hypokalemia; R11.2 Nausea with vomiting, unspecified; F41.0 Panic disorder [episodic paroxysmal anxiety]; B37.3 Candidiasis of vulva and vagina; B95.5 Unspecified streptococcus as the cause of diseases classified elsewhere; B95.61 Methicillin susceptible Staphylococcus aureus infection as the cause of diseases classified elsewhere; Y83.1 Surgical operation with implant of artificial internal device as the cause of abnormal reaction of the patient, or of later complication, without mention of misadventure at the time of the procedure; Z79.01 Long term (current) use of anticoagulants; Z96.642 Presence of left artificial hip joint; Z98.84 Bariatric surgery status
CPT/HCPCS: 71010; 71260; 73502; 73723; 74177; 74183; 76377; 80048; 80053; 80076; 81001; 82306; 82340; 82397; 82550; 82652; 83605; 83690; 83735; 83970; 84100; 84105; 84133; 84145; 84155; 84443; 85025; 85610; 85652; 85730; 86140; 87015; 87040; 87070; 87102; 87116; 87176; 87205; 87206; 88305; 88331; 93005; 93306; 94150; A9579; C1776; J0630; J0690; J1580; J2060; J2175; J2250; J2270; J2370; J2405; J2710; J2795; J3010; J3260; J3370; J3475; J3480; J7120; Q9963; Q9967